=== PATIENT | male | born 1940 | race Caucasian/White ===

== ENCOUNTER 2018-07-09 05:21 | Emergency (ER) | payer MEDICARE, MEDICAID, SELFPAY ==
[2018-07-09] VITALS (8 sets, daily range): BP systolic 119–163; BP diastolic 64–115; PULSE 54–84; RESP 16–22; TEMP 36.8; O2SAT 93–100
--- NOTE | 2018-07-09 06:03 | DI.CT.S_ITS ---
PROCEDURE: CT ABDOMEN PELVIS W CON INDICATIONS: Left lower quadrant abdominal pain TECHNIQUE: After the administration of intravenous contrast, 5 mm thick sections acquired from the diaphragm to the symphysis. 5 mm coronal and sagittal reformats were acquired. For radiation dose reduction, the following was used: automated exposure control, adjustment of mA and/or kV according to patient size. COMPARISON: None. FINDINGS: Image quality: Excellent. ABDOMEN: Lung bases: Lung bases are clear. Heart size is normal. Solid organs: Liver is normal in size and enhancement. Gallbladder contains small gallstones, calcified, layering dependently. This are the size that easily good transit into the cystic duct or common bile duct.. Biliary system is non dilated. Pancreas enhances normally. Spleen is normal in size and enhancement. No adrenal nodules. Kidneys demonstrate asymmetric size, small on the right, and asymmetric mildly reduced right renal cortical enhancemen. There is generalized right urothelial mild thickening and a small calculus is free within the renal pelvis on the right. There is mild right-sided hydronephrosis. The left kidney appears normal Peritoneum and bowel: Bowel loops demonstrate normal wall thickness and caliber. No free fluid or air. Nodes and vessels: No retroperitoneal or mesenteric adenopathy by size criteria. The inferior vena cava is normal in size, but the aorta is aneurysmal at the middle third measuring about 4.2 cm in maximal axial dimension at the mid kidney level. Ectasia of the aorta and extends into the distal aorta and the iliac arteries are asymmetrically enlarged, measuring up to 2.5 cm on the right and 2.1 cm on the left. Miscellaneous: No ventral hernias. Gastrostomy tube in normal position. PELVIS: Genitourinary: Bladder wall thickness is difficult to accurately assess due to presence of a chronic appearing bladder drained from anterior percutaneous approach. What appears to be a 11 mm midline ovoid calculus is present likely within the gallbladder lumen, versus high-grade prostatic urethra. Several additional calcifications are seen more inferiorly within the prostate itself. Miscellaneous: No inguinal hernias or adenopathy. Multiple prostate radiation therapy seed implants are incidentally noted. Bones: No suspicious bony lesions. No vertebral body compression fractures. IMPRESSION: 1. Urothelial thickening and enhancement associated with a renal calculus and mild hydronephrosis on the right. The right renal cortex is thinned, right kidney is small when compared to the left kidney. Chronic urinary tract infection is suspected as the underlying cause. Given the urothelial thickening present involving the right kidney ongoing infection in that area may be present. 2. 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 No aneurysm hemorrhage is seen. 3. Prostatic radiation therapy seed implants. 4. Percutaneous bladder drainage, chronic in appearance, and there possibly is a bladder calculus or high prostatic urethral calculus. No comparison examinations. Urology consultation may be warranted and also referenced to old comparison films would be very helpful to determine whether a coincidental obstructive prostatic urethra calculus is present. 5. Percutaneous gastrostomy tube present, in normal position. Dictated by: Marlon Adams M.D. on 07/09/2018 at 8:37 Approved by: Marlon Adams M.D. on 07/09/2018 at 8:45
--- NOTE | 2018-07-09 07:25 | ED.MALEGU ---
HPI - Male Genitourinary <Lynsey Miguel DO - Last Filed: 07/09/18 21:11> General Chief complaint: Urogenital-Male Stated complaint: Cath clogged Time Seen by Provider: 07/09/18 07:25 Source: patient, family and EMS History of Present Illness HPI Narrative: Patient presents with Hart catheter problem. 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 It was not draining and then suddenly it leaked all around him. He is incontinent of urine at this time. He says the last 2 days he really has not felt great abdominal discomfort. No nausea or vomiting. He has not had any chest pain cough or shortness of breath. He says he just noticed that something was not quite right. Related Data Previous Rx's Medication Instructions Recorded cephalexin [Keflex] 500 mg PO BID #20 cap 07/09/18 Allergies Allergy/AdvReac Type Severity Reaction Status Date / Time codeine Allergy Verified 07/09/18 07:51 Review of Systems <Lynsey Miguel DO - Last Filed: 07/09/18 21:11> Review of Systems GENERAL: Generalized weakness HEENT: Denies sinus pain, ear pain, sore throat, difficulty swallowing, neck pain RESPIRATORY: Denies dyspnea, cough, wheezing, hemoptysis, sputum. CARDIOVASCULAR: Denies chest pain, palpitations, orthopnea, edema GASTROINTESTINAL: Peg tube for feeding Denies nausea, vomiting, abdominal pain, diarrhea, constipation, melena. : Chronic Hart catheter MUSCULOSKELETAL: Denies weakness, joint pain, or bony pain SKIN: No rash, no erythema, no pruritus NEUROLOGIC: Denies weakness, dizziness, headache, numbness, change in speech, confusion PSYCHIATRIC: No concerning psychosocial issues. 12 point review of systems is negative except for those stated above and HPI PFSH <Lynsey Miguel DO - Last Filed: 07/09/18 21:11> Medical History Cancer of parotid gland (Acute) Chronic indwelling Hart catheter (Acute) PEG tube malfunction (Acute) Surgical History H/O prostatectomy (Acute) Exam <Lynsey Miguel DO - Last Filed: 07/09/18 21:11> Initial Vital Signs Initial Vital Signs: Vital Signs Temperature 98.3 F 02/06/19 05:21 Pulse Rate 84 07/09/18 05:21 Respiratory Rate 16 07/09/18 05:21 Blood Pressure 128/71 07/09/18 05:21 Pulse Oximetry 93 07/09/18 05:21 GENERAL: Disheveled elderly male incontinent of urine poor hygiene, alert and oriented x3 HEENT: Head atraumatic,EOMI, pupils reactive, swelling of side of his face, neck is supple no meningeal signs CARDIOVASCULAR: Regular rate and rhythm without murmurs, rubs or gallops. RESPIRATORY: Breath sounds equal bilaterally, no wheezes rales or rhonchi. ABDOMEN: Soft. Normoactive bowel sounds all 4 quadrants. No guarding or rebound. The PEG tube site inserted. Vertical scar also noted. He is slightly tender in left lower quadrant without guarding or rebound : Hart catheter in place incontinence EXTREMITIES: Normal range of motion, no clubbing or edema. Neurovascularly intact NEUROLOGICAL: Alert and oriented x4.Normal gait and speech. Cranial nerves II through XII grossly intact. SKIN: Warm, dry, no laceration, no petechiae, no rashes or lesions. <Laura Bender, - Last Filed: 07/09/18 18:42> Initial Vital Signs Initial Vital Signs: Vital Signs Temperature 98.3 F 07/09/18 05:21 Pulse Rate 84 07/09/18 05:21 Respiratory Rate 16 07/09/18 05:21 Blood Pressure 128/71 07/09/18 05:21 Pulse Oximetry 93 07/09/18 05:21 Course <Lynsey Miguel DO - Last Filed: 07/09/18 21:11> Orders Ordered: Discontinued Medications Ceftriaxone Sodium/Dextrose (Rocephin) 1 gm in 50 mls @ 100 mls/hr IV NOW ONE Stop: 07/09/18 09:08 Last Infusion: 07/09/18 09:24 Dose: 0 mls/hr Admin: 07/09/18 08:55 Dose: 100 mls/hr Sodium Chloride (Normal Saline 0.9%) 1,000 mls @ 1,000 mls/hr IV BOLUS ONE Stop: 07/09/18 09:38 Last Admin: 07/09/18 07:00 Dose: Not Given Sodium Chloride (Normal Saline 0.9%) 1,000 mls @ 1,000 mls/hr IV BOLUS ONE Stop: 07/09/18 09:38 Last Infusion: 07/09/18 10:42 Dose: 0 mls/hr Admin: 07/09/18 08:47 Dose: 1,000 mls/hr Ketorolac Tromethamine (Toradol) 15 mg IV NOW ONE Stop: 07/09/18 08:15 Last Admin: 07/09/18 08:22 Dose: 15 mg Ondansetron HCl (Zofran) 4 mg IV NOW ONE Stop: 07/09/18 07:58 Last Admin: 07/09/18 08:03 Dose: 4 mg Vital Signs - 8 hr 07/09/18 11:00 07/09/18 12:03 Pulse Rate 55 L 54 L Respiratory Rate 20 22 Blood Pressure [Left Arm] 135/79 132/83 Pulse Oximetry 98 100 <Laura Bender, - Last Filed: 07/09/18 18:42> Orders Ordered: Discontinued Medications Ceftriaxone Sodium/Dextrose (Rocephin) 1 gm in 50 mls @ 100 mls/hr IV NOW ONE Stop: 07/09/18 09:08 Last Infusion: 07/09/18 09:24 Dose: 0 mls/hr Admin: 07/09/18 08:55 Dose: 100 mls/hr Sodium Chloride (Normal Saline 0.9%) 1,000 mls @ 1,000 mls/hr IV BOLUS ONE Stop: 07/09/18 09:38 Last Admin: 07/09/18 07:00 Dose: Not Given Sodium Chloride (Normal Saline 0.9%) 1,000 mls @ 1,000 mls/hr IV BOLUS ONE Stop: 07/09/18 09:38 Last Infusion: 07/09/18 10:42 Dose: 0 mls/hr Admin: 07/09/18 08:47 Dose: 1,000 mls/hr Ketorolac Tromethamine (Toradol) 15 mg IV NOW ONE Stop: 07/09/18 08:15 Last Admin: 07/09/18 08:22 Dose: 15 mg Ondansetron HCl (Zofran) 4 mg IV NOW ONE Stop: 07/09/18 07:58 Last Admin: 07/09/18 08:03 Dose: 4 mg Vital Signs - 8 hr 07/09/18 11:00 07/09/18 12:03 Pulse Rate 55 L 54 L Respiratory Rate 20 22 Blood Pressure [Left Arm] 135/79 132/83 Pulse Oximetry 98 100 MDM - Male Genitourinary <Lynsey Miguel DO - Last Filed: 07/09/18 21:11> Lab Data Result diagrams: 07/09/18 06:10 07/09/18 06:00 Lab Results 07/09/18 07/09/18 07/09/18 Range/Units 05:20 06:00 06:00 WBC (4.5-11.0) X10^3/uL RBC (4.5-5.9) X10^6/uL Hgb (13.5-17.5) g/dL Hct (41-53) % MCV (80-100) fL MCH (26-34) PG MCHC (30-36) % RDW (11.6-14.8) % Plt Count (150-400) X10^3/uL Neut % (Auto) (50-75) % Lymph % (Auto) (25-40) % [place] % (Auto) (3-14) % Eos % (Auto) (2-4) % Baso % (Auto) (0-2) % Neut # (Auto) (9575-1626) /uL Lymph # (Auto) (4613-2894) /uL [place] # (Auto) (0-900) /uL Eos # (Auto) (0-450) /uL Baso # (Auto) (0-100) /uL PT 18.5 H (10.1-12.7) SECONDS INR 1.6 H (0.9-1.3) APTT 33 (26.4-36.2) SECONDS Sodium 139 (137-145) mmol/L Potassium 3.9 (3.4-5.1) mmol/L Chloride 100 (98-107) mmol/L Carbon Dioxide 30 (22-32) mmol/L BUN 44 H (9-20) mg/dL Creatinine 0.90 (0.66-1.25) mg/dL Estimated GFR > 60.0 (>60) mL/min BUN/Creatinine Ratio 48.9 H (6-22) Glucose 132 H (80-110) mg/dL Calcium 9.3 (8.4-10.2) mg/dL Total Bilirubin 0.8 (0.2-1.3) mg/dL AST 28 (17-59) IU/L ALT 24 (21-72) IU/L Alkaline Phosphatase 66 (38-126) U/L Total Protein 7.4 (6.3-8.2) g/dL Albumin 4.0 (3.5-5.0) g/dL Globulin 3.4 (1.7-4.1) g/dL Albumin/Globulin Ratio 1.2 (1.0-2.8) Urine Color Yellow Urine Appearance Turbid Urine pH 8.5 H (4.5-8.0) Ur Specific [place] 1.010 (1.000-1.035) Urine Protein 3+ H (Negative) Urine Glucose (UA) Negative (Negative) g/dL Urine Ketones Trace H (NEGATIVE) Urine Occult Blood 3+ H (Negative) Urine Nitrate Positive (Negative) Urine Bilirubin Negative (NEGATIVE) Urine Urobilinogen 1.0 (0.2) E.U./dL Ur Leukocyte Esterase 3+ H (NEGATIVE) Urine RBC 10-30/hpf H (0-5/HPF) Urine WBC >100/hpf H (0-5/HPF) Urine Bacteria Many (>30) H (None) Ur Culture Indicated? Specimen cultured 07/09/18 Range/Units 06:10 WBC 9.1 (4.5-11.0) X10^3/uL RBC 4.76 (4.5-5.9) X10^6/uL Hgb 14.1 (13.5-17.5) g/dL Hct 42.3 (41-53) % MCV 88.9 (80-100) fL MCH 29.7 (26-34) PG MCHC 33.4 (30-36) % RDW 15.2 H (11.6-14.8) % Plt Count 266 (150-400) X10^3/uL Neut % (Auto) 83.6 H (50-75) % Lymph % (Auto) 8.3 L (25-40) % [place] % (Auto) 6.7 (3-14) % Eos % (Auto) 0.9 L (2-4) % Baso % (Auto) 0.5 (0-2) % Neut # (Auto) 7600 H (0057-1399) /uL Lymph # (Auto) 800 L (5234-9618) /uL [place] # (Auto) 600 (0-900) /uL Eos # (Auto) 100 (0-450) /uL Baso # (Auto) 0 (0-100) /uL PT (10.1-12.7) SECONDS INR (0.9-1.3) APTT (26.4-36.2) SECONDS Sodium (137-145) mmol/L Potassium (3.4-5.1) mmol/L Chloride (98-107) mmol/L Carbon Dioxide (22-32) mmol/L BUN (9-20) mg/dL Creatinine (0.66-1.25) mg/dL Estimated GFR (>60) mL/min BUN/Creatinine Ratio (6-22) Glucose (80-110) mg/dL Calcium (8.4-10.2) mg/dL Total Bilirubin (0.2-1.3) mg/dL AST (17-59) IU/L ALT (21-72) IU/L Alkaline Phosphatase (38-126) U/L Total Protein (6.3-8.2) g/dL Albumin (3.5-5.0) g/dL Globulin (1.7-4.1) g/dL Albumin/Globulin Ratio (1.0-2.8) Urine Color Urine Appearance Urine pH (4.5-8.0) Ur Specific [place] (1.000-1.035) Urine Protein (Negative) Urine Glucose (UA) (Negative) g/dL Urine Ketones (NEGATIVE) Urine Occult Blood (Negative) Urine Nitrate (Negative) Urine Bilirubin (NEGATIVE) Urine Urobilinogen (0.2) E.U./dL Ur Leukocyte Esterase (NEGATIVE) Urine RBC (0-5/HPF) Urine WBC (0-5/HPF) Urine Bacteria (None) Ur Culture Indicated? MDM Narrative Medical decision making narrative: The patient has been cleaned up. There was a [employer] down time transitioning of care over to Dr. Bender. Blood work reviewed does appear normal. Waiting CT abdomen and pelvis. Discuss with family about disposition <Laura Bender, - Last Filed: 07/09/18 18:42> Lab Data Lab Results 02/06/19 02/06/19 02/06/19 Range/Units 05:20 06:00 06:00 WBC (4.5-11.0) X10^3/uL RBC (4.5-5.9) X10^6/uL Hgb (13.5-17.5) g/dL Hct (41-53) % MCV (80-100) fL MCH (26-34) PG MCHC (30-36) % RDW (11.6-14.8) % Plt Count (150-400) X10^3/uL Neut % (Auto) (50-75) % Lymph % (Auto) (25-40) % [place] % (Auto) (3-14) % Eos % (Auto) (2-4) % Baso % (Auto) (0-2) % Neut # (Auto) (9675-1937) /uL Lymph # (Auto) (3740-6063) /uL [place] # (Auto) (0-900) /uL Eos # (Auto) (0-450) /uL Baso # (Auto) (0-100) /uL PT 18.5 H (10.1-12.7) SECONDS INR 1.6 H (0.9-1.3) APTT 33 (26.4-36.2) SECONDS Sodium 139 (137-145) mmol/L Potassium 3.9 (3.4-5.1) mmol/L Chloride 100 (98-107) mmol/L Carbon Dioxide 30 (22-32) mmol/L BUN 44 H (9-20) mg/dL Creatinine 0.90 (0.66-1.25) mg/dL Estimated GFR > 60.0 (>60) mL/min BUN/Creatinine Ratio 48.9 H (6-22) Glucose 132 H (80-110) mg/dL Calcium 9.3 (8.4-10.2) mg/dL Total Bilirubin 0.8 (0.2-1.3) mg/dL AST 28 (17-59) IU/L ALT 24 (21-72) IU/L Alkaline Phosphatase 66 (38-126) U/L Total Protein 7.4 (6.3-8.2) g/dL Albumin 4.0 (3.5-5.0) g/dL Globulin 3.4 (1.7-4.1) g/dL Albumin/Globulin Ratio 1.2 (1.0-2.8) Urine Color Yellow Urine Appearance Turbid Urine pH 8.5 H (4.5-8.0) Ur Specific [place] 1.010 (1.000-1.035) Urine Protein 3+ H (Negative) Urine Glucose (UA) Negative (Negative) g/dL Urine Ketones Trace H (NEGATIVE) Urine Occult Blood 3+ H (Negative) Urine Nitrate Positive (Negative) Urine Bilirubin Negative (NEGATIVE) Urine Urobilinogen 1.0 (0.2) E.U./dL Ur Leukocyte Esterase 3+ H (NEGATIVE) Urine RBC 10-30/hpf H (0-5/HPF) Urine WBC >100/hpf H (0-5/HPF) Urine Bacteria Many (>30) H (None) Ur Culture Indicated? Specimen cultured 07/09/18 Range/Units 06:10 WBC 9.1 (4.5-11.0) X10^3/uL RBC 4.76 (4.5-5.9) X10^6/uL Hgb 14.1 (13.5-17.5) g/dL Hct 42.3 (41-53) % MCV 88.9 (80-100) fL MCH 29.7 (26-34) PG MCHC 33.4 (30-36) % RDW 15.2 H (11.6-14.8) % Plt Count 266 (150-400) X10^3/uL Neut % (Auto) 83.6 H (50-75) % Lymph % (Auto) 8.3 L (25-40) % [place] % (Auto) 6.7 (3-14) % Eos % (Auto) 0.9 L (2-4) % Baso % (Auto) 0.5 (0-2) % Neut # (Auto) 7600 H (1188-3878) /uL Lymph # (Auto) 800 L (7132-9115) /uL [place] # (Auto) 600 (0-900) /uL Eos # (Auto) 100 (0-450) /uL Baso # (Auto) 0 (0-100) /uL PT (10.1-12.7) SECONDS INR (0.9-1.3) APTT (26.4-36.2) SECONDS Sodium (137-145) mmol/L Potassium (3.4-5.1) mmol/L Chloride (98-107) mmol/L Carbon Dioxide (22-32) mmol/L BUN (9-20) mg/dL Creatinine (0.66-1.25) mg/dL Estimated GFR (>60) mL/min BUN/Creatinine Ratio (6-22) Glucose (80-110) mg/dL Calcium (8.4-10.2) mg/dL Total Bilirubin (0.2-1.3) mg/dL AST (17-59) IU/L ALT (21-72) IU/L Alkaline Phosphatase (38-126) U/L Total Protein (6.3-8.2) g/dL Albumin (3.5-5.0) g/dL Globulin (1.7-4.1) g/dL Albumin/Globulin Ratio (1.0-2.8) Urine Color Urine Appearance Urine pH (4.5-8.0) Ur Specific [place] (1.000-1.035) Urine Protein (Negative) Urine Glucose (UA) (Negative) g/dL Urine Ketones (NEGATIVE) Urine Occult Blood (Negative) Urine Nitrate (Negative) Urine Bilirubin (NEGATIVE) Urine Urobilinogen (0.2) E.U./dL Ur Leukocyte Esterase (NEGATIVE) Urine RBC (0-5/HPF) Urine WBC (0-5/HPF) Urine Bacteria (None) Ur Culture Indicated? Imaging Data CT scan - abdomen: Radiologist's impression: [place] [id number] CT Scan Report Signed Patient: Marcos ReynaR#: [id number] : 1940cct:[id number] Age/Sex: 77 / MDate of Service: 07/09/18 Loc: ED Accession Number: [id number] Procedure: CT abdomen pelvis w con Ordering Provider: Lynsey Miguel D.O. PROCEDURE: CT ABDOMEN PELVIS W CON INDICATIONS: Left lower quadrant abdominal pain TECHNIQUE: After the administration of intravenous contrast, 5 mm thick sections acquired from the diaphragm to the symphysis. 5 mm coronal and sagittal reformats were acquired. For radiation dose reduction, the following was used: automated exposure control, adjustment of mA and/or kV according to patient size. COMPARISON: None. FINDINGS: Image quality: Excellent. ABDOMEN: Lung bases: Lung bases are clear. Heart size is normal. Solid organs: Liver is normal in size and enhancement. Gallbladder contains small gallstones, calcified, layering dependently. This are the size that easily good transit into the cystic duct or common bile duct.. Biliary system is non dilated. Pancreas enhances normally. Spleen is normal in size and enhancement. No adrenal nodules. Kidneys demonstrate asymmetric size, small on the right, and asymmetric mildly reduced right renal cortical enhancemen. There is generalized right urothelial mild thickening and a small calculus is free within the renal pelvis on the right. There is mild right-sided hydronephrosis. The left kidney appears normal Peritoneum and bowel: Bowel loops demonstrate normal wall thickness and caliber. No free fluid or air. Nodes and vessels: No retroperitoneal or mesenteric adenopathy by size criteria. The inferior vena cava is normal in size, but the aorta is aneurysmal at the middle third measuring about 4.2 cm in maximal axial dimension at the mid kidney level. Ectasia of the aorta and extends into the distal aorta and the iliac arteries are asymmetrically enlarged, measuring up to 2.5 cm on the right and 2.1 cm on the left. Miscellaneous: No ventral hernias. Gastrostomy tube in normal position. PELVIS: Genitourinary: Bladder wall thickness is difficult to accurately assess due to presence of a chronic appearing bladder drained from anterior percutaneous approach. What appears to be a 11 mm midline ovoid calculus is present likely within the gallbladder lumen, versus high-grade prostatic urethra. Several additional calcifications are seen more inferiorly within the prostate itself. Miscellaneous: No inguinal hernias or adenopathy. Multiple prostate radiation therapy seed implants are incidentally noted. Bones: No suspicious bony lesions. No vertebral body compression fractures. IMPRESSION: 1. Urothelial thickening and enhancement associated with a renal calculus and mild hydronephrosis on the right. The right renal cortex is thinned, right kidney is small when compared to the left kidney. Chronic urinary tract infection is suspected as the underlying cause. Given the urothelial thickening present involving the right kidney ongoing infection in that area may be present. 2. 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 No aneurysm hemorrhage is seen. 3. Prostatic radiation therapy seed implants. 4. Percutaneous bladder drainage, chronic in appearance, and there possibly is a bladder calculus or high prostatic urethral calculus. No comparison examinations. Urology consultation may be warranted and also referenced to old comparison films would be very helpful to determine whether a coincidental obstructive prostatic urethra calculus is present. 5. Percutaneous gastrostomy tube present, in normal position. Dictated by: Marlon Adams M.D. on 07/09/2018 at 8:37 Approved by: Marlon Adams M.D. on 07/09/2018 at 8:45 MDM Narrative Medical decision making narrative: Spoke with Dr. Cesar from [facility] vascular patient's CT today shows triple A with involvement of the iliac, patient's family was all clear if he had been evaluated for this they initially believed that he had and that they were told that they would not do anything but then they thought this might actually be in reference to a hernia that the patient has. Images were pushed to [facility] they were reviewed by vascular surgery who did call me back states that they have not changed and are stable. She reviewed patient's CT scan from today. They state patient can continue to follow with the internal medicine group until it is above 5 cm or if there is concern for imminent rupture. Patient's lab work does not show any major changes, urine does show signs of infection which is on surprising based on his catheter and physical status upon arrival to the ER. Patient was started on antibiotics Rocephin here in the department and Keflex orally. Urine culture is pending there were none prior for comparison and discussed with the son and patient that they may need to be changed if there is resistance which is likely. Discharge Plan Departure Patient Disposition: Home Clinical Impression: Catheter-associated urinary tract infection, Abdominal aortic aneurysm Discharge Date/Time: 07/09/18 13:12 Interventions: ED Discharge Assessment Last Done: 07/09/18 13:12 Instructions: Aortic Aneurysm, DI for Urinary Tract Infection (UTI) Activity Restrictions/Additional Instructions: Follow-up with your appointments with [facility] for recheck. They should also continue to follow your aneurysm to monitor. Take antibiotics until they are completely gone. Your urine does show signs of infection, urine culture was sent and if this shows resistant to the antibiotics your placed on today you will receive a phone call to update her antibiotics. Return to the emergency department for fevers greater than 100.4, new weakness, persistent vomiting, rapidly increasing abdominal pain, new flank pain, difficulty with urination or if you're catheter has become blocked. Prescriptions: New cephalexin [Keflex] 500 mg capsule 500 mg PO BID Qty: 20 RF: 0 Referrals: Celina Restrepo MD [Primary Care Provider] -
--- NOTE | 2018-07-09 07:28 | ED_ITS ---
HPI - Male Genitourinary <Lynsey Miguel DO - Last Filed: 07/09/18 21:11> General Chief complaint: Urogenital-Male Stated complaint: Cath clogged Time Seen by Provider: 07/09/18 07:25 Source: patient, family and EMS History of Present Illness HPI Narrative: Patient presents with Hart catheter problem. 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 It was not draining and then suddenly it leaked all around him. He is incontinent of urine at this time. He says the last 2 days he really has not felt great abdominal discomfort. No nausea or vomiting. He has not had any chest pain cough or shortness of breath. He says he just noticed that something was not quite right. Related Data Previous Rx's Medication Instructions Recorded cephalexin [Keflex] 500 mg PO BID #20 cap 07/09/18 Allergies Allergy/AdvReac Type Severity Reaction Status Date / Time codeine Allergy Verified 07/09/18 07:51 Review of Systems <Lynsey Miguel DO - Last Filed: 07/09/18 21:11> Review of Systems GENERAL: Generalized weakness HEENT: Denies sinus pain, ear pain, sore throat, difficulty swallowing, neck pain RESPIRATORY: Denies dyspnea, cough, wheezing, hemoptysis, sputum. CARDIOVASCULAR: Denies chest pain, palpitations, orthopnea, edema GASTROINTESTINAL: Peg tube for feeding Denies nausea, vomiting, abdominal pain, diarrhea, constipation, melena. : Chronic Hart catheter MUSCULOSKELETAL: Denies weakness, joint pain, or bony pain SKIN: No rash, no erythema, no pruritus NEUROLOGIC: Denies weakness, dizziness, headache, numbness, change in speech, confusion PSYCHIATRIC: No concerning psychosocial issues. 12 point review of systems is negative except for those stated above and HPI PFSH <Lynsey Miguel DO - Last Filed: 07/09/18 21:11> Medical History Cancer of parotid gland (Acute) Chronic indwelling Hart catheter (Acute) PEG tube malfunction (Acute) Surgical History H/O prostatectomy (Acute) Exam <Lynsey Miguel DO - Last Filed: 07/09/18 21:11> Initial Vital Signs Initial Vital Signs: Vital Signs Temperature 98.3 F 02/06/19 05:21 Pulse Rate 84 07/09/18 05:21 Respiratory Rate 16 07/09/18 05:21 Blood Pressure 128/71 07/09/18 05:21 Pulse Oximetry 93 07/09/18 05:21 GENERAL: Disheveled elderly male incontinent of urine poor hygiene, alert and oriented x3 HEENT: Head atraumatic,EOMI, pupils reactive, swelling of side of his face, neck is supple no meningeal signs CARDIOVASCULAR: Regular rate and rhythm without murmurs, rubs or gallops. RESPIRATORY: Breath sounds equal bilaterally, no wheezes rales or rhonchi. ABDOMEN: Soft. Normoactive bowel sounds all 4 quadrants. No guarding or rebound. The PEG tube site inserted. Vertical scar also noted. He is slightly tender in left lower quadrant without guarding or rebound : Hart catheter in place incontinence EXTREMITIES: Normal range of motion, no clubbing or edema. Neurovascularly intact NEUROLOGICAL: Alert and oriented x4.Normal gait and speech. Cranial nerves II through XII grossly intact. SKIN: Warm, dry, no laceration, no petechiae, no rashes or lesions. <Laura Bender, - Last Filed: 07/09/18 18:42> Initial Vital Signs Initial Vital Signs: Vital Signs Temperature 98.3 F 07/09/18 05:21 Pulse Rate 84 07/09/18 05:21 Respiratory Rate 16 07/09/18 05:21 Blood Pressure 128/71 07/09/18 05:21 Pulse Oximetry 93 07/09/18 05:21 Course <Lynsey Miguel DO - Last Filed: 07/09/18 21:11> Orders Ordered: Discontinued Medications Ceftriaxone Sodium/Dextrose (Rocephin) 1 gm in 50 mls @ 100 mls/hr IV NOW ONE Stop: 07/09/18 09:08 Last Infusion: 07/09/18 09:24 Dose: 0 mls/hr Admin: 07/09/18 08:55 Dose: 100 mls/hr Sodium Chloride (Normal Saline 0.9%) 1,000 mls @ 1,000 mls/hr IV BOLUS ONE Stop: 07/09/18 09:38 Last Admin: 07/09/18 07:00 Dose: Not Given Sodium Chloride (Normal Saline 0.9%) 1,000 mls @ 1,000 mls/hr IV BOLUS ONE Stop: 07/09/18 09:38 Last Infusion: 07/09/18 10:42 Dose: 0 mls/hr Admin: 07/09/18 08:47 Dose: 1,000 mls/hr Ketorolac Tromethamine (Toradol) 15 mg IV NOW ONE Stop: 07/09/18 08:15 Last Admin: 07/09/18 08:22 Dose: 15 mg Ondansetron HCl (Zofran) 4 mg IV NOW ONE Stop: 07/09/18 07:58 Last Admin: 07/09/18 08:03 Dose: 4 mg Vital Signs - 8 hr 07/09/18 11:00 07/09/18 12:03 Pulse Rate 55 L 54 L Respiratory Rate 20 22 Blood Pressure [Left Arm] 135/79 132/83 Pulse Oximetry 98 100 <Laura Bender, - Last Filed: 07/09/18 18:42> Orders Ordered: Discontinued Medications Ceftriaxone Sodium/Dextrose (Rocephin) 1 gm in 50 mls @ 100 mls/hr IV NOW ONE Stop: 07/09/18 09:08 Last Infusion: 07/09/18 09:24 Dose: 0 mls/hr Admin: 07/09/18 08:55 Dose: 100 mls/hr Sodium Chloride (Normal Saline 0.9%) 1,000 mls @ 1,000 mls/hr IV BOLUS ONE Stop: 07/09/18 09:38 Last Admin: 07/09/18 07:00 Dose: Not Given Sodium Chloride (Normal Saline 0.9%) 1,000 mls @ 1,000 mls/hr IV BOLUS ONE Stop: 07/09/18 09:38 Last Infusion: 07/09/18 10:42 Dose: 0 mls/hr Admin: 07/09/18 08:47 Dose: 1,000 mls/hr Ketorolac Tromethamine (Toradol) 15 mg IV NOW ONE Stop: 07/09/18 08:15 Last Admin: 07/09/18 08:22 Dose: 15 mg Ondansetron HCl (Zofran) 4 mg IV NOW ONE Stop: 07/09/18 07:58 Last Admin: 07/09/18 08:03 Dose: 4 mg Vital Signs - 8 hr 07/09/18 11:00 07/09/18 12:03 Pulse Rate 55 L 54 L Respiratory Rate 20 22 Blood Pressure [Left Arm] 135/79 132/83 Pulse Oximetry 98 100 MDM - Male Genitourinary <Lynsey Miguel DO - Last Filed: 07/09/18 21:11> Lab Data Result diagrams: 07/09/18 06:10 07/09/18 06:00 Lab Results 07/09/18 07/09/18 07/09/18 Range/Units 05:20 06:00 06:00 WBC (4.5-11.0) X10^3/uL RBC (4.5-5.9) X10^6/uL Hgb (13.5-17.5) g/dL Hct (41-53) % MCV (80-100) fL MCH (26-34) PG MCHC (30-36) % RDW (11.6-14.8) % Plt Count (150-400) X10^3/uL Neut % (Auto) (50-75) % Lymph % (Auto) (25-40) % Mcpherson % (Auto) (3-14) % Eos % (Auto) (2-4) % Baso % (Auto) (0-2) % Neut # (Auto) (9965-7854) /uL Lymph # (Auto) (2673-5222) /uL Mcpherson # (Auto) (0-900) /uL Eos # (Auto) (0-450) /uL Baso # (Auto) (0-100) /uL PT 18.5 H (10.1-12.7) SECONDS INR 1.6 H (0.9-1.3) APTT 33 (26.4-36.2) SECONDS Sodium 139 (137-145) mmol/L Potassium 3.9 (3.4-5.1) mmol/L Chloride 100 (98-107) mmol/L Carbon Dioxide 30 (22-32) mmol/L BUN 44 H (9-20) mg/dL Creatinine 0.90 (0.66-1.25) mg/dL Estimated GFR > 60.0 (>60) mL/min BUN/Creatinine Ratio 48.9 H (6-22) Glucose 132 H (80-110) mg/dL Calcium 9.3 (8.4-10.2) mg/dL Total Bilirubin 0.8 (0.2-1.3) mg/dL AST 28 (17-59) IU/L ALT 24 (21-72) IU/L Alkaline Phosphatase 66 (38-126) U/L Total Protein 7.4 (6.3-8.2) g/dL Albumin 4.0 (3.5-5.0) g/dL Globulin 3.4 (1.7-4.1) g/dL Albumin/Globulin Ratio 1.2 (1.0-2.8) Urine Color Yellow Urine Appearance Turbid Urine pH 8.5 H (4.5-8.0) Ur Specific [place] 1.010 (1.000-1.035) Urine Protein 3+ H (Negative) Urine Glucose (UA) Negative (Negative) g/dL Urine Ketones Trace H (NEGATIVE) Urine Occult Blood 3+ H (Negative) Urine Nitrate Positive (Negative) Urine Bilirubin Negative (NEGATIVE) Urine Urobilinogen 1.0 (0.2) E.U./dL Ur Leukocyte Esterase 3+ H (NEGATIVE) Urine RBC 10-30/hpf H (0-5/HPF) Urine WBC >100/hpf H (0-5/HPF) Urine Bacteria Many (>30) H (None) Ur Culture Indicated? Specimen cultured 07/09/18 Range/Units 06:10 WBC 9.1 (4.5-11.0) X10^3/uL RBC 4.76 (4.5-5.9) X10^6/uL Hgb 14.1 (13.5-17.5) g/dL Hct 42.3 (41-53) % MCV 88.9 (80-100) fL MCH 29.7 (26-34) PG MCHC 33.4 (30-36) % RDW 15.2 H (11.6-14.8) % Plt Count 266 (150-400) X10^3/uL Neut % (Auto) 83.6 H (50-75) % Lymph % (Auto) 8.3 L (25-40) % Mcpherson % (Auto) 6.7 (3-14) % Eos % (Auto) 0.9 L (2-4) % Baso % (Auto) 0.5 (0-2) % Neut # (Auto) 7600 H (5075-8067) /uL Lymph # (Auto) 800 L (3095-5471) /uL Mcpherson # (Auto) 600 (0-900) /uL Eos # (Auto) 100 (0-450) /uL Baso # (Auto) 0 (0-100) /uL PT (10.1-12.7) SECONDS INR (0.9-1.3) APTT (26.4-36.2) SECONDS Sodium (137-145) mmol/L Potassium (3.4-5.1) mmol/L Chloride (98-107) mmol/L Carbon Dioxide (22-32) mmol/L BUN (9-20) mg/dL Creatinine (0.66-1.25) mg/dL Estimated GFR (>60) mL/min BUN/Creatinine Ratio (6-22) Glucose (80-110) mg/dL Calcium (8.4-10.2) mg/dL Total Bilirubin (0.2-1.3) mg/dL AST (17-59) IU/L ALT (21-72) IU/L Alkaline Phosphatase (38-126) U/L Total Protein (6.3-8.2) g/dL Albumin (3.5-5.0) g/dL Globulin (1.7-4.1) g/dL Albumin/Globulin Ratio (1.0-2.8) Urine Color Urine Appearance Urine pH (4.5-8.0) Ur Specific [place] (1.000-1.035) Urine Protein (Negative) Urine Glucose (UA) (Negative) g/dL Urine Ketones (NEGATIVE) Urine Occult Blood (Negative) Urine Nitrate (Negative) Urine Bilirubin (NEGATIVE) Urine Urobilinogen (0.2) E.U./dL Ur Leukocyte Esterase (NEGATIVE) Urine RBC (0-5/HPF) Urine WBC (0-5/HPF) Urine Bacteria (None) Ur Culture Indicated? MDM Narrative Medical decision making narrative: The patient has been cleaned up. There was a [employer] down time transitioning of care over to Dr. Bender. Blood work reviewed does appear normal. Waiting CT abdomen and pelvis. Discuss with family about disposition <Laura Bender, - Last Filed: 07/09/18 18:42> Lab Data Lab Results 02/06/19 02/06/19 02/06/19 Range/Units 05:20 06:00 06:00 WBC (4.5-11.0) X10^3/uL RBC (4.5-5.9) X10^6/uL Hgb (13.5-17.5) g/dL Hct (41-53) % MCV (80-100) fL MCH (26-34) PG MCHC (30-36) % RDW (11.6-14.8) % Plt Count (150-400) X10^3/uL Neut % (Auto) (50-75) % Lymph % (Auto) (25-40) % Mcpherson % (Auto) (3-14) % Eos % (Auto) (2-4) % Baso % (Auto) (0-2) % Neut # (Auto) (5281-6313) /uL Lymph # (Auto) (5634-0222) /uL Mcpherson # (Auto) (0-900) /uL Eos # (Auto) (0-450) /uL Baso # (Auto) (0-100) /uL PT 18.5 H (10.1-12.7) SECONDS INR 1.6 H (0.9-1.3) APTT 33 (26.4-36.2) SECONDS Sodium 139 (137-145) mmol/L Potassium 3.9 (3.4-5.1) mmol/L Chloride 100 (98-107) mmol/L Carbon Dioxide 30 (22-32) mmol/L BUN 44 H (9-20) mg/dL Creatinine 0.90 (0.66-1.25) mg/dL Estimated GFR > 60.0 (>60) mL/min BUN/Creatinine Ratio 48.9 H (6-22) Glucose 132 H (80-110) mg/dL Calcium 9.3 (8.4-10.2) mg/dL Total Bilirubin 0.8 (0.2-1.3) mg/dL AST 28 (17-59) IU/L ALT 24 (21-72) IU/L Alkaline Phosphatase 66 (38-126) U/L Total Protein 7.4 (6.3-8.2) g/dL Albumin 4.0 (3.5-5.0) g/dL Globulin 3.4 (1.7-4.1) g/dL Albumin/Globulin Ratio 1.2 (1.0-2.8) Urine Color Yellow Urine Appearance Turbid Urine pH 8.5 H (4.5-8.0) Ur Specific [place] 1.010 (1.000-1.035) Urine Protein 3+ H (Negative) Urine Glucose (UA) Negative (Negative) g/dL Urine Ketones Trace H (NEGATIVE) Urine Occult Blood 3+ H (Negative) Urine Nitrate Positive (Negative) Urine Bilirubin Negative (NEGATIVE) Urine Urobilinogen 1.0 (0.2) E.U./dL Ur Leukocyte Esterase 3+ H (NEGATIVE) Urine RBC 10-30/hpf H (0-5/HPF) Urine WBC >100/hpf H (0-5/HPF) Urine Bacteria Many (>30) H (None) Ur Culture Indicated? Specimen cultured 07/09/18 Range/Units 06:10 WBC 9.1 (4.5-11.0) X10^3/uL RBC 4.76 (4.5-5.9) X10^6/uL Hgb 14.1 (13.5-17.5) g/dL Hct 42.3 (41-53) % MCV 88.9 (80-100) fL MCH 29.7 (26-34) PG MCHC 33.4 (30-36) % RDW 15.2 H (11.6-14.8) % Plt Count 266 (150-400) X10^3/uL Neut % (Auto) 83.6 H (50-75) % Lymph % (Auto) 8.3 L (25-40) % Mcpherson % (Auto) 6.7 (3-14) % Eos % (Auto) 0.9 L (2-4) % Baso % (Auto) 0.5 (0-2) % Neut # (Auto) 7600 H (6754-9211) /uL Lymph # (Auto) 800 L (9675-0335) /uL Mcpherson # (Auto) 600 (0-900) /uL Eos # (Auto) 100 (0-450) /uL Baso # (Auto) 0 (0-100) /uL PT (10.1-12.7) SECONDS INR (0.9-1.3) APTT (26.4-36.2) SECONDS Sodium (137-145) mmol/L Potassium (3.4-5.1) mmol/L Chloride (98-107) mmol/L Carbon Dioxide (22-32) mmol/L BUN (9-20) mg/dL Creatinine (0.66-1.25) mg/dL Estimated GFR (>60) mL/min BUN/Creatinine Ratio (6-22) Glucose (80-110) mg/dL Calcium (8.4-10.2) mg/dL Total Bilirubin (0.2-1.3) mg/dL AST (17-59) IU/L ALT (21-72) IU/L Alkaline Phosphatase (38-126) U/L Total Protein (6.3-8.2) g/dL Albumin (3.5-5.0) g/dL Globulin (1.7-4.1) g/dL Albumin/Globulin Ratio (1.0-2.8) Urine Color Urine Appearance Urine pH (4.5-8.0) Ur Specific [place] (1.000-1.035) Urine Protein (Negative) Urine Glucose (UA) (Negative) g/dL Urine Ketones (NEGATIVE) Urine Occult Blood (Negative) Urine Nitrate (Negative) Urine Bilirubin (NEGATIVE) Urine Urobilinogen (0.2) E.U./dL Ur Leukocyte Esterase (NEGATIVE) Urine RBC (0-5/HPF) Urine WBC (0-5/HPF) Urine Bacteria (None) Ur Culture Indicated? Imaging Data CT scan - abdomen: Radiologist's impression: [place] [id number] CT Scan Report Signed Patient: Marcos ReynaR#: [id number] : 1940cct:[id number] Age/Sex: 77 / MDate of Service: 07/09/18 Loc: ED Accession Number: [id number] Procedure: CT abdomen pelvis w con Ordering Provider: Lynsey Miguel D.O. PROCEDURE: CT ABDOMEN PELVIS W CON INDICATIONS: Left lower quadrant abdominal pain TECHNIQUE: After the administration of intravenous contrast, 5 mm thick sections acquired from the diaphragm to the symphysis. 5 mm coronal and sagittal reformats were acquired. For radiation dose reduction, the following was used: automated exposure control, adjustment of mA and/or kV according to patient size. COMPARISON: None. FINDINGS: Image quality: Excellent. ABDOMEN: Lung bases: Lung bases are clear. Heart size is normal. Solid organs: Liver is normal in size and enhancement. Gallbladder contains small gallstones, calcified, layering dependently. This are the size that easily good transit into the cystic duct or common bile duct.. Biliary system is non dilated. Pancreas enhances normally. Spleen is normal in size and enhancement. No adrenal nodules. Kidneys demonstrate asymmetric size, small on the right, and asymmetric mildly reduced right renal cortical enhancemen. There is generalized right urothelial mild thickening and a small calculus is free within the renal pelvis on the right. There is mild right-sided hydronephrosis. The left kidney appears normal Peritoneum and bowel: Bowel loops demonstrate normal wall thickness and caliber. No free fluid or air. Nodes and vessels: No retroperitoneal or mesenteric adenopathy by size criteria. The inferior vena cava is normal in size, but the aorta is aneurysmal at the middle third measuring about 4.2 cm in maximal axial dimension at the mid kidney level. Ectasia of the aorta and extends into the distal aorta and the iliac arteries are asymmetrically enlarged, measuring up to 2.5 cm on the right and 2.1 cm on the left. Miscellaneous: No ventral hernias. Gastrostomy tube in normal position. PELVIS: Genitourinary: Bladder wall thickness is difficult to accurately assess due to presence of a chronic appearing bladder drained from anterior percutaneous approach. What appears to be a 11 mm midline ovoid calculus is present likely within the gallbladder lumen, versus high-grade prostatic urethra. Several additional calcifications are seen more inferiorly within the prostate itself. Miscellaneous: No inguinal hernias or adenopathy. Multiple prostate radiation therapy seed implants are incidentally noted. Bones: No suspicious bony lesions. No vertebral body compression fractures. IMPRESSION: 1. Urothelial thickening and enhancement associated with a renal calculus and mild hydronephrosis on the right. The right renal cortex is thinned, right kidney is small when compared to the left kidney. Chronic urinary tract infection is suspected as the underlying cause. Given the urothelial thickening present involving the right kidney ongoing infection in that area may be present. 2. 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 No aneurysm hemorrhage is seen. 3. Prostatic radiation therapy seed implants. 4. Percutaneous bladder drainage, chronic in appearance, and there possibly is a bladder calculus or high prostatic urethral calculus. No comparison examinations. Urology consultation may be warranted and also referenced to old comparison films would be very helpful to determine whether a coincidental obstructive prostatic urethra calculus is present. 5. Percutaneous gastrostomy tube present, in normal position. Dictated by: Marlon Adams M.D. on 07/09/2018 at 8:37 Approved by: Marlon Adams M.D. on 07/09/2018 at 8:45 MDM Narrative Medical decision making narrative: Spoke with Dr. Cesar from [facility] vascular patient's CT today shows triple A with involvement of the iliac, patient's family was all clear if he had been evaluated for this they initially believed that he had and that they were told that they would not do anything but then they thought this might actually be in reference to a hernia that the patient has. Images were pushed to [facility] they were reviewed by vascular surgery who did call me back states that they have not changed and are stable. She reviewed patient's CT scan from today. They state patient can continue to follow with the internal medicine group until it is above 5 cm or if there is concern for imminent rupture. Patient's lab work does not show any major changes, urine does show signs of infection which is on surprising based on his catheter and physical status upon arrival to the ER. Patient was started on antibiotics Rocephin here in the department and Keflex orally. Urine culture is pending there were none prior for comparison and discussed with the son and patient that they may need to be changed if there is resistance which is likely. Discharge Plan Departure Patient Disposition: Home Clinical Impression: Catheter-associated urinary tract infection, Abdominal aortic aneurysm Discharge Date/Time: 07/09/18 13:12 Interventions: ED Discharge Assessment Last Done: 07/09/18 13:12 Instructions: Aortic Aneurysm, DI for Urinary Tract Infection (UTI) Activity Restrictions/Additional Instructions: Follow-up with your appointments with [facility] for recheck. They should also continue to follow your aneurysm to monitor. Take antibiotics until they are completely gone. Your urine does show signs of infection, urine culture was sent and if this shows resistant to the antibiotics your placed on today you will receive a phone call to update her antibiotics. Return to the emergency department for fevers greater than 100.4, new weakness, persistent vomiting, rapidly increasing abdominal pain, new flank pain, difficulty with urination or if you're catheter has become blocked. Prescriptions: New cephalexin [Keflex] 500 mg capsule 500 mg PO BID Qty: 20 RF: 0 Referrals: Celina Restrepo MD [Primary Care Provider] -
[2018-07-09 07:40] LABS: Appearance Urine UA TURBID; Bilirubin Urine UA NEGATIVE (NEGATIVE); Color Urine UA YELLOW; Glucose Urine UA NEGATIVE (Negative); Ketones Urine UA TRACE (NEGATIVE); Leukocyte Esterase Urine UA 3+ (NEGATIVE); Nitrite Urine UA POSITIVE (Negative); Occult Blood Urine UA 3+ (Negative); Protein Urine UA 3+ (Negative); pH Urine UA 8.5 (4.5-8.0)
--- NOTE | 2018-07-09 07:59 | PC.NURSE ---
Pt has suprapubic cath. Reports had missed appointment to replace cath and it had been about a month and half in place. Pt reports increased pain in bladder to to feeling of needing to urinate. Catheter bag empty upon arrive. Pt's pants and shirt were wet from urine. Pt had urinated around cath.
[2018-07-09] MEDS: ONDANSETRON 4 MG/2 ML INJ IV (08:03)
--- NOTE | 2018-07-09 08:03 | PC.NURSE ---
Pt with brief in place. Large bowel movement in brief. Brief was stuck to patient in places. When asked, Pt stated had been in same brief for 3 days and was to weak to change brief. Cleaned patient up requiring total bed change. Pt's skin excoriated from brief both on gluts and testicles. Barrier cream applied.
[2018-07-09 08:05] LABS: RBC Urine 10-30/HPF (0-5/HPF)
[2018-07-09 08:06] LABS: Bacteria Urine Many (>30); Culture Indicated Urine Specimen Cultured; WBC Urine >100/HPF (0-5/HPF)
--- NOTE | 2018-07-09 08:07 | PC.NURSE ---
Once original suprapubic cath was removed, pt started urinating out of opening in lower abdomen. Pt drained a large amount of orange urine before able to replace catheter. Once pt finished draining from opening, catheter was replaced.
[2018-07-09] MEDS: KETOROLAC 60 MG/2 ML VIAL 15 MG IV (08:22)
[2018-07-09] MEDS: SODIUM CHLORIDE 0.9% 1,000 ML 1000 ML IV (08:47)
[2018-07-09] MEDS: CEFTRIAXONE 1 GM/50 ML FROZ.PIGGY IV (08:55)
[2018-07-09 12:36] LABS: Add Manual Diff / Slide Review NO; Basophils Absolute Auto 0 /uL (0-100); Basophils Percent Auto 0.5 % (0-2); Eosinophils Absolute Auto 100 /uL (0-450); Eosinophils Percent Auto 0.9 % (2-4); Hematocrit 42.3 % (41-53); Hemoglobin 14.1 g/dL (13.5-17.5); Lymphocytes Absolute Auto 800 /uL (1100-4500); Lymphocytes Percent Auto 8.3 % (25-40); Mean Corpuscular HGB Conc 33.4 % (30-36); Mean Corpuscular Hemoglobin 29.7 PG (26-34); Mean Corpuscular Volume 88.9 fL (80-100); Monocytes Absolute Auto 600 /uL (0-900); Monocytes Percent Auto 6.7 % (3-14); Neutrophils Absolute Auto 7600 /uL (1500-7000); Neutrophils Percent Auto 83.6 % (50-75); Platelet Count 266 X10^3/uL (150-400); Red Blood Cell Count 4.76 X10^6/uL (4.5-5.9); Red Cell Distribution Width 15.2 % (11.6-14.8); White Blood Cell Count 9.1 X10^3/uL (4.5-11.0)
[2018-07-09 12:40] LABS: INR 1.6 (0.9-1.3); PTT Partial Thromboplastin Tim 33 SECONDS (26.4-36.2); Prothrombin Time 18.5 SECONDS (10.1-12.7)
[2018-07-09 13:33] LABS: Alanine Aminotransferase 24 IU/L (21-72); Albumin Globulin Ratio 1.2 (1.0-2.8); Alkaline Phosphatase 66 U/L (38-126); Aspartate Aminotransferase 28 IU/L (17-59); BUN Creatinine Ratio 48.9 (6-22); Bilirubin Total 0.8 mg/dL (0.2-1.3); Blood Urea Nitrogen 44 mg/dL (9-20); Calcium 9.3 mg/dL (8.4-10.2); Carbon Dioxide 30 mmol/L (22-32); Chloride 100 mmol/L (98-107); Estimated Glomerular Filt Rate > 60.0 mL/min (>60); Globulin 3.4 g/dL (1.7-4.1); Glucose 132 mg/dL (80-110); HEMOLYSIS 29 (0-50); Potassium 3.9 mmol/L (3.4-5.1); Sodium 139 mmol/L (137-145); Total Protein 7.4 g/dL (6.3-8.2)
== END 2018-07-09 13:12 | disposition home or self-care (01) ==
PROVIDERS: Emergency Medicine; Emergency Provider Emergency Medicine; PCP Internal Medicine
DX: T83.511A Infection and inflammatory reaction due to indwelling urethral catheter, initial encounter (principal); I71.4 Abdominal aortic aneurysm, without rupture
CPT/HCPCS: 36591; 51705; 74177; 80053; 81001; 81015; 85025; 85610; 85730; 87077; 87086; 87186; 93005; 96361; 96365; 96375; 99284; 99285; J1885; J2405; Q9967

== ENCOUNTER 2022-08-29 14:10 | Inpatient (IN) | payer MEDICARE, MEDICAID, SELFPAY ==
[2022-08-29] VITALS (27 sets, daily range): BP systolic 128–157; BP diastolic 59–102; PULSE 60–86; RESP 16–21; TEMP 36.8–37.1; O2SAT 91–99; BMI 26.6
[2022-08-29 15:08] LABS: Add Manual Diff / Slide Review NO; Basophils Absolute Auto 0 /uL (0-100); Basophils Percent Auto 0.4 % (0-2); Eosinophils Absolute Auto 0 /uL (0-450); Eosinophils Percent Auto 0.3 % (2-4); Hematocrit 31.8 % (41-53); Hemoglobin 10.2 g/dL (13.5-17.5); Lymphocytes Absolute Auto 600 /uL (1100-4500); Lymphocytes Percent Auto 7.6 % (25-40); Mean Corpuscular Volume 81.2 fL (80-100); Monocytes Absolute Auto 600 /uL (0-900); Monocytes Percent Auto 8.3 % (3-14); Neutrophils Absolute Auto 6300 /uL (1500-7000); Neutrophils Percent Auto 83.4 % (50-75); Platelet Count 360 X10^3/uL (150-400); Red Blood Cell Count 3.92 X10^6/uL (4.5-5.9); White Blood Cell Count 7.5 X10^3/uL (4.5-11.0)
[2022-08-29 15:22] LABS: Alanine Aminotransferase 69 IU/L (<50); Albumin 3.4 g/dL (3.5-5.0); Albumin Globulin Ratio 0.8 (1.0-2.8); Alkaline Phosphatase 222 U/L (38-126); Aspartate Aminotransferase 56 IU/L (17-59); BUN Creatinine Ratio 41.4 (6-22); Blood Urea Nitrogen 24 mg/dL (9-20); Calcium 8.8 mg/dL (8.4-10.2); Carbon Dioxide 35 mmol/L (22-32); Chloride 96 mmol/L (98-107); Estimated Glomerular Filt Rate > 60 mL/min (>60); Globulin 4.2 g/dL (1.7-4.1); Glucose 122 mg/dL (80-110); HEMOLYSIS < 15 (0-50); Lipase 1175 U/L (23-300); Potassium 3.9 mmol/L (3.4-5.1); Sodium 134 mmol/L (137-145); Total Protein 7.6 g/dL (6.3-8.2)
--- NOTE | 2022-08-29 16:18 | DI.RAD.S_ITS ---
PROCEDURE: XR ACUTE ABDOMEN SERIES INDICATIONS: abd distention, sob TECHNIQUE: One view chest and two views of the abdomen were acquired. COMPARISON: None. FINDINGS: Surgical changes and devices: Lead less pacing device is noted. There is prior left hip arthroplasty. Brachytherapy seeds are noted in lower pelvis. Likely pe gastrostomy tube is seen in left upper quadrant abdomen. Chest: Lungs are clear. Heart size is enlarged. No pleural effusions. No pneumoperitoneum. Abdomen: Bowel gas pattern is nonobstructive. [id number] fecal stasis throughout the colon is seen extending to the rectum.. No suspicious calcifications. Visualized solid organ contours appear normal. Bones: No suspicious bony lesions. IMPRESSION: 1. Moderate constipation. No gross free air. 2. No acute cardiopulmonary pathology. Dictated by: Sameer Grace M.D. on 08/29/2022 at 17:35 Approved by: Sameer Grace M.D. on 08/29/2022 at 17:37
[2022-08-29 16:33] LABS: Lactate (Lactic Acid) 1.5 mmol/L (0.7-2.1)
--- NOTE | 2022-08-29 16:40 | DI.CT.S_ITS ---
PROCEDURE: CT ABDOMEN PELVIS W CON INDICATIONS: wounds on sacrum, recent shigella, +lipase, ? pancreatitis TECHNIQUE: After the administration of IV contrast, axial sections were acquired from the lung bases to the pubic symphysis. Coronal and sagittal reformats were performed. For radiation dose reduction, the following was used: automated exposure control, adjustment of mA and/or kV according to patient size. COMPARISON: Merged With [facility], CT, CT ABDOMEN PELVIS W CON, 07/09/2018, 7:15. FINDINGS: Image quality: Portions of the lower pelvis are suboptimally evaluated secondary to metallic streak artifact from hip arthroplasty. Lung bases: Patchy areas of opacity are noted within the lower lobes most notably on the left. Heart: No significant findings. ABDOMEN: Liver: Unremarkable. Gallbladder: Multiple stones are identified. There is an appearance of gallbladder wall thickening versus pericholecystic fluid. Biliary ducts: Unremarkable. Pancreas: Unremarkable. Spleen: Unremarkable. Adrenal Glands: Unremarkable. Kidneys and Ureters: Marked asymmetric right renal atrophy. Exophytic simple cysts are present bilaterally. Nonobstructing 9 mm inferior right renal pole calcification Hounsfield units 602. Stomach and Bowel: Stomach, small bowel loops, and colon are unremarkable. Moderate colonic stool without obstruction. Peritoneum: No abnormal intraperitoneal fluid. No free air. Ventral Wall: No hernia. Abdominal Nodes: No retroperitoneal or mesenteric adenopathy by size criteria. Vessels: Aorta is ectatic with aneurysmal dilation measuring 4.7 cm at the distal aspect immediately superior to the bifurcation. This was present on prior exam, at which time it measured 4.3 cm. PELVIS: Pelvic Organs: Radiation prostate seeds are present. Bladder: Poorly evaluated as it is collapsed with a Hart catheter. Pelvic Nodes: No enlarged lymph nodes. Miscellaneous: No inguinal hernias are seen. Bones: Unremarkable. IMPRESSION: Patchy areas of opacity within the lung bases left greater than right. While this could represent atelectasis, developing pneumonia cannot be excluded. Pancreas is normal. Cholelithiasis with appearance of pericholecystic fluid versus wall thickening. Cholecystitis cannot be excluded. Ultrasound is recommended for further evaluation. Dictated by: Lalitha Miranda M.D. on 08/29/2022 at 17:36 Approved by: Lalitha Miranda M.D. on 08/29/2022 at 17:40
[2022-08-29 16:43] LABS: NT-proBNP (BNP-Adult 18+) 3000 pg/mL (<450)
[2022-08-29 16:51] LABS: Procalcitonin 0.33 ng/mL (<0.5)
[2022-08-29 16:52] LABS: INR 1.7 (0.9-1.3); Prothrombin Time 19.7 SECONDS (10.1-12.7)
[2022-08-29 18:30] LABS: Adenovirus Not Detected (Not Detect); B. parapertussis Not Detected (Not Detecte); Bordetella pertussis Not Detected (Not Detecte); Chlamydophila pneumoniae Not Detected (Not Detect); Coronavirus 229E Not Detected (Not Detect); Coronavirus HKU1 Not Detected (Not Detect); Coronavirus NL 63 Detected (Not Detect); Coronavirus OC43 Not Detected (Not Detect); Human Metapneumovirus Not Detected (Not Detect); Human Rhinovirus/Enterovirus Not Detected (Not Detect); Influenza A Not Detected (Not Detect); Influenza B Not Detected (Not Detect); Mycoplasma pneumoniae Not Detected (Not Detect); Parainfluenza Virus 1 Not Detected (Not Detect); Parainfluenza Virus 2 Not Detected (Not Detect); Parainfluenza Virus 3 Not Detected (Not Detect); Parainfluenza Virus 4 Not Detected (Not Detect); Respiratory Syncytial Virus Not Detected (Not Detect); SARS- CoV-2 Not Detected (Not Detecte)
--- NOTE | 2022-08-29 18:49 | ED_ITS ---
HPI - Recheck/Abnormal Lab/Rx General Chief Complaint: Recheck/Abnormal Lab/Rx Stated Complaint: Ulcers Time Seen by Provider: 08/29/22 16:40 Source: patient, family and EMS Mode of arrival: EMS History of Present Illness HPI narrative: Patient is an 81-year-old male. Has a history of diabetes. Also has history of atrial fibrillation. Is on Eliquis. Was brought in by family under the direction of home health nurse for evaluation of what appears to be worsening decubitus ulcers. Patient's also states that he has had some sinus congestion and coughing over the past couple days. She denies any chest pain. No shortness of breath. No abdominal pain. He is also having diarrhea but this has been going on for many months now. They recently received a call from the health department telling them that he has a urinary tract infection. He is on an antibiotic which according to the record view shows that it is Macrobid. I think that this is a medicine that he takes every day for a prophylaxis. He is not currently on any treatment medications for urinary tract infection. The patient does have a suprapubic catheter in place. This has been in place for many years. This was placed secondary to complications of prostate cancer. He also has a G-tube in place. This has also been in place for many years. 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 He is not currently undergoing any treatment for malignancies. Approximately 1 month ago he was seen at an outside facility for weakness. He had CT scans and an ultrasound performed which did show gallbladder pathology but he would normal LFTs and lipase. He was not having any abdominal tenderness no specific treatment was made with regard to the gallbladder. He is had decubitus ulcers for some time now. Patient's states he is sedentary and does not walk. He has been getting home health because of these ulcers. Apparently 1 of the ul cers has been worsening and there was concern that there was bone exposure. 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 Surgical History H/O prostatectomy Social History household members: spouse Smoking Status: Current some day smoker alcohol intake: former Smoking Status: Unknown if ever smoked Substance Use Type: does not use Exam Initial Vital Signs Initial Vital Signs: Vital Signs Pulse Rate 63 08/29/22 14:29 Blood Pressure 152/88 H 08/29/22 14:29 Pulse Oximetry 99 08/29/22 14:29 Const General: No in distress and ill appearing HENMT Head: normal to inspection and normocephalic Eyes General: Yes appearance normal, both eyes and all related structures Resp Effort & Inspection: not tachypneic Auscultation: rhonchi Cardio Rate: regular rate Rhythm: regular rhythm GI Inspection: non-distended Palpation: soft and No tender Other: G-tube in place left upper quadrant. Suprapubic catheter in place Skin Other: Patient has findings on his buttocks and lower back and upper posterior thighs that are consistent with pressure changes. He has 2 areas of concern. One is located in the left upper buttocks. It is approximately 4 cm x 4 cm. There is minimal surrounding erythema. There is no necrotic tissue. There does appear to be bone felt with probing of this wound. He has a 2nd wound on the lower right buttocks that is approximately 2 cm x 2 cm. It does have muscle involvement but no bone. There is no surrounding erythema concerning for cellulitis. Neuro General: patient alert, patient awake and moves all extremities Extrem General: edema Psych Appearance: disheveled Course Orders Ordered: ED Orders 08/29/22 16:18 XR acute abdomen series Stat 08/29/22 16:22 Respiratory Panel (Film Array) Stat 08/29/22 16:40 CT abdomen pelvis w con Stat 08/29/22 16:45 Blood Culture Stat 08/29/22 17:45 Urinalysis and Microscopic Stat Urine Culture Stat 08/29/22 18:45 Wound Culture and Gram Stain Stat Wound Culture and Gram Stain Stat 08/29/22 18:51 US abdomen limited Stat 08/29/22 19:42 Consult to General Surgery Stat Acetaminophen (Acetaminophen 325 Mg Tablet) 650 mg PO Q6H PRN PRN Reason: Fever/Mild Pain (1-3) Albuterol/Ipratropium (Albuterol/Ipratropium 3 Ml Ampul) 3 ml INH RTQ4HR PRN PRN Reason: Shortness Of Breath Apixaban (Apixaban 5 Mg Tablet) 2.5 mg PO BID [facility] Last Admin: 08/29/22 23:11 Dose: 2.5 mg Documented By: CT Azithromycin (Azithromycin 250 Mg Tablet) 500 mg PO Q24H [facility] Dextrose (Dextrose 50 % In Water 25 Gm/50 Ml Syringe) 25 gm IV PRN PRN PRN Reason: Hypoglycemia Sodium Chloride (Normal Saline 0.9%) 1,000 mls @ 125 mls/hr IV CONT [facility] Last Admin: 08/29/22 19:28 Dose: 125 mls/hr Documented By: GC Piperacillin Sod/Tazobactam (Sod 3.375 gm/ Sodium Chloride) 100 mls @ 25 mls/hr IV Q8H [facility] Vancomycin HCl/Dextrose (Vancomycin) 2,000 mg in 400 mls @ 200 mls/hr IV NOW ONE Stop: 08/30/22 01:59 Last Admin: 08/30/22 01:00 Dose: 200 mls/hr Insulin Human Lispro (Insulin Lispro 100 Unit/Ml 3ml Vial) 0 unit SUBCUT ACHS [facility]; Protocol Naloxone HCl (Naloxone 0.4 Mg/Ml Vial) 0.2 mg IV Q2MIN PRN PRN Reason: Opiate Reversal Ondansetron HCl (Ondansetron 4 Mg/2 Ml Inj) 4 mg IV Q8HR PRN PRN Reason: Nausea And Vomiting Vancomycin HCl (Vancomycin Per Pharmacy) 1 request MISC NOW ONE Stop: 08/29/22 23:50 Discontinued Medications Piperacillin Sod/Tazobactam (Sod 4.5 gm/ Sodium Chloride) 100 mls @ 200 mls/hr IV NOW ONE Stop: 08/29/22 18:51 Last Infusion: 08/29/22 20:05 Dose: 0 mls/hr Documented By: Admin: 08/29/22 19:28 Dose: 200 mls/hr Documented By: RUPESH Azithromycin 500 mg/ Dextrose 250 mls @ 250 mls/hr IV NOW ONE Stop: 08/29/22 18:53 Last Infusion: 08/29/22 21:20 Dose: 0 mls/hr Documented By: Admin: 08/29/22 20:11 Dose: 250 mls/hr Documented By: ANAHY Ondansetron HCl (Ondansetron 4 Mg/2 Ml Inj) 4 mg IV NOW PRN PRN Reason: Nausea And Vomiting Vital Signs Vital signs: Vital Signs - 8 hr 08/29/22 17:05 08/29/22 17:05 08/29/22 17:30 Pulse Rate 67 Blood Pressure 144/65 H 152/63 H Pulse Oximetry 97 08/29/22 17:30 08/29/22 18:00 08/29/22 18:00 Pulse Rate 84 71 Blood Pressure 140/64 Pulse Oximetry 98 92 08/29/22 18:30 08/29/22 18:30 08/29/22 19:00 Pulse Rate 62 Blood Pressure 129/62 148/71 H Pulse Oximetry 95 08/29/22 19:00 08/29/22 19:30 08/29/22 19:30 Pulse Rate 86 69 Blood Pressure 142/68 H Pulse Oximetry 97 97 08/29/22 20:00 08/29/22 20:01 08/29/22 20:01 Pulse Rate 67 67 Blood Pressure 134/61 Pulse Oximetry 93 93 MDM - Recheck/Abnormal Lab/Rx Medical Records Attestation: I reviewed the patient's medical records. Lab Data Attestation: I reviewed the patient's lab results. 08/29/22 15:00 08/29/22 15:00 Labs: Lab Results 08/29/22 08/29/22 08/29/22 Range/Units 15:00 15:00 15:00 WBC 7.5 (4.5-11.0) X10^3/uL RBC 3.92 L (4.5-5.9) X10^6/uL Hgb 10.2 L (13.5-17.5) g/dL Hct 31.8 L (41-53) % MCV 81.2 (80-100) fL MCH 26.0 (26-34) PG MCHC 32.0 (30-36) % RDW 20.0 H (11.6-14.8) % Plt Count 360 (150-400) X10^3/uL Neut % (Auto) 83.4 H (50-75) % Lymph % (Auto) 7.6 L (25-40) % Dooly % (Auto) 8.3 (3-14) % Eos % (Auto) 0.3 L (2-4) % Baso % (Auto) 0.4 (0-2) % Neut # (Auto) 6300 (5569-0406) /uL Lymph # (Auto) 600 L (9708-4664) /uL Dooly # (Auto) 600 (0-900) /uL Eos # (Auto) 0 (0-450) /uL Baso # (Auto) 0 (0-100) /uL PT (10.1-12.7) SECONDS INR (0.9-1.3) APTT (26-36) SECONDS Sodium 134 L (137-145) mmol/L Potassium 3.9 (3.4-5.1) mmol/L Chloride 96 L (98-107) mmol/L Carbon Dioxide 35 H (22-32) mmol/L BUN 24 H (9-20) mg/dL Creatinine 0.58 L (0.66-1.25) mg/dL Estimated GFR > 60 (>60) mL/min BUN/Creatinine Ratio 41.4 H (6-22) Glucose 122 H (80-110) mg/dL Lactate (0.7-2.1) mmol/L Calcium 8.8 (8.4-10.2) mg/dL Total Bilirubin 1.0 (0.2-1.3) mg/dL AST 56 (17-59) IU/L ALT 69 H (<50) IU/L Alkaline Phosphatase 222 H (38-126) U/L NT-Pro-B Natriuret Pep 3000 H (<450) pg/mL Total Protein 7.6 (6.3-8.2) g/dL Albumin 3.4 L (3.5-5.0) g/dL Globulin 4.2 H (1.7-4.1) g/dL Albumin/Globulin Ratio 0.8 L (1.0-2.8) Lipase 1175 H (23-300) U/L Procalcitonin (<0.5) ng/mL Urine Color Urine Appearance Urine pH (4.5-8.0) Ur Specific Lawrence (1.000-1.035) Urine Protein (Negative) Urine Glucose (UA) (Negative) g/dL Urine Ketones (NEGATIVE) Urine Occult Blood (Negative) Urine Nitrate (Negative) Urine Bilirubin (NEGATIVE) Urine Urobilinogen (0.2) E.U./dL Ur Leukocyte Esterase (NEGATIVE) Urine RBC (0-5/HPF) Urine WBC (0-5/HPF) Amorphous Sediment Urine Bacteria (None) Chlamy pneumoniae PCR (Not Detect) Adenovirus (PCR) (Not Detect) B. pertussis DNA (PCR) (Not Detecte) B.parapertussis DNA PCR (Not Detecte) Coronavirus OC43 (PCR) (Not Detect) Coronavirus HKU1 (PCR) (Not Detect) Coronavirus 229E (PCR) (Not Detect) SARS-CoV-2 (PCR) (Not Detecte) Coronavirus NL63 (PCR) (Not Detect) Human Metapneumovir PCR (Not Detect) Influenza Type A (PCR) (Not Detect) Influenza Type B (PCR) (Not Detect) M. pneumoniae (PCR) (Not Detect) Parainfluenza 1 (PCR) (Not Detect) Parainfluenza 2 (PCR) (Not Detect) Parainfluenza 3 (PCR) (Not Detect) Parainfluenza 4 (PCR) (Not Detect) RSV (PCR) (Not Detect) Entero/Rhino (PCR) (Not Detect) 08/29/22 08/29/22 08/29/22 Range/Units 15:00 15:00 15:00 WBC (4.5-11.0) X10^3/uL RBC (4.5-5.9) X10^6/uL Hgb (13.5-17.5) g/dL Hct (41-53) % MCV (80-100) fL MCH (26-34) PG MCHC (30-36) % RDW (11.6-14.8) % Plt Count (150-400) X10^3/uL Neut % (Auto) (50-75) % Lymph % (Auto) (25-40) % Dooly % (Auto) (3-14) % Eos % (Auto) (2-4) % Baso % (Auto) (0-2) % Neut # (Auto) (8551-9002) /uL Lymph # (Auto) (4903-0284) /uL Dooly # (Auto) (0-900) /uL Eos # (Auto) (0-450) /uL Baso # (Auto) (0-100) /uL PT 19.7 H (10.1-12.7) SECONDS INR 1.7 H (0.9-1.3) APTT (26-36) SECONDS Sodium (137-145) mmol/L Potassium (3.4-5.1) mmol/L Chloride (98-107) mmol/L Carbon Dioxide (22-32) mmol/L BUN (9-20) mg/dL Creatinine (0.66-1.25) mg/dL Estimated GFR (>60) mL/min BUN/Creatinine Ratio (6-22) Glucose (80-110) mg/dL Lactate 1.5 (0.7-2.1) mmol/L Calcium (8.4-10.2) mg/dL Total Bilirubin (0.2-1.3) mg/dL AST (17-59) IU/L ALT (<50) IU/L Alkaline Phosphatase (38-126) U/L NT-Pro-B Natriuret Pep (<450) pg/mL Total Protein (6.3-8.2) g/dL Albumin (3.5-5.0) g/dL Globulin (1.7-4.1) g/dL Albumin/Globulin Ratio (1.0-2.8) Lipase (23-300) U/L Procalcitonin 0.33 (<0.5) ng/mL Urine Color Urine Appearance Urine pH (4.5-8.0) Ur Specific Lawrence (1.000-1.035) Urine Protein (Negative) Urine Glucose (UA) (Negative) g/dL Urine Ketones (NEGATIVE) Urine Occult Blood (Negative) Urine Nitrate (Negative) Urine Bilirubin (NEGATIVE) Urine Urobilinogen (0.2) E.U./dL Ur Leukocyte Esterase (NEGATIVE) Urine RBC (0-5/HPF) Urine WBC (0-5/HPF) Amorphous Sediment Urine Bacteria (None) Chlamy pneumoniae PCR (Not Detect) Adenovirus (PCR) (Not Detect) B. pertussis DNA (PCR) (Not Detecte) B.parapertussis DNA PCR (Not Detecte) Coronavirus OC43 (PCR) (Not Detect) Coronavirus HKU1 (PCR) (Not Detect) Coronavirus 229E (PCR) (Not Detect) SARS-CoV-2 (PCR) (Not Detecte) Coronavirus NL63 (PCR) (Not Detect) Human Metapneumovir PCR (Not Detect) Influenza Type A (PCR) (Not Detect) Influenza Type B (PCR) (Not Detect) M. pneumoniae (PCR) (Not Detect) Parainfluenza 1 (PCR) (Not Detect) Parainfluenza 2 (PCR) (Not Detect) Parainfluenza 3 (PCR) (Not Detect) Parainfluenza 4 (PCR) (Not Detect) RSV (PCR) (Not Detect) Entero/Rhino (PCR) (Not Detect) 08/29/22 08/29/22 08/29/22 Range/Units 15:00 16:22 17:45 WBC (4.5-11.0) X10^3/uL RBC (4.5-5.9) X10^6/uL Hgb (13.5-17.5) g/dL Hct (41-53) % MCV (80-100) fL MCH (26-34) PG MCHC (30-36) % RDW (11.6-14.8) % Plt Count (150-400) X10^3/uL Neut % (Auto) (50-75) % Lymph % (Auto) (25-40) % Dooly % (Auto) (3-14) % Eos % (Auto) (2-4) % Baso % (Auto) (0-2) % Neut # (Auto) (3270-9423) /uL Lymph # (Auto) (0261-0121) /uL Dooly # (Auto) (0-900) /uL Eos # (Auto) (0-450) /uL Baso # (Auto) (0-100) /uL PT (10.1-12.7) SECONDS INR (0.9-1.3) APTT 33 (26-36) SECONDS Sodium (137-145) mmol/L Potassium (3.4-5.1) mmol/L Chloride (98-107) mmol/L Carbon Dioxide (22-32) mmol/L BUN (9-20) mg/dL Creatinine (0.66-1.25) mg/dL Estimated GFR (>60) mL/min BUN/Creatinine Ratio (6-22) Glucose (80-110) mg/dL Lactate (0.7-2.1) mmol/L Calcium (8.4-10.2) mg/dL Total Bilirubin (0.2-1.3) mg/dL AST (17-59) IU/L ALT (<50) IU/L Alkaline Phosphatase (38-126) U/L NT-Pro-B Natriuret Pep (<450) pg/mL Total Protein (6.3-8.2) g/dL Albumin (3.5-5.0) g/dL Globulin (1.7-4.1) g/dL Albumin/Globulin Ratio (1.0-2.8) Lipase (23-300) U/L Procalcitonin (<0.5) ng/mL Urine Color Yellow Urine Appearance Cloudy Urine pH 8.0 (4.5-8.0) Ur Specific Lawrence 1.015 (1.000-1.035) Urine Protein 2+ H (Negative) Urine Glucose (UA) Negative (Negative) g/dL Urine Ketones Negative (NEGATIVE) Urine Occult Blood 2+ H (Negative) Urine Nitrate Positive H (Negative) Urine Bilirubin Negative (NEGATIVE) Urine Urobilinogen 1.0 (0.2) E.U./dL Ur Leukocyte Esterase 3+ H (NEGATIVE) Urine RBC 5-10/hpf H (0-5/HPF) Urine WBC 5-10/hpf H (0-5/HPF) Amorphous Sediment 2+ Urine Bacteria Moderate (10-30) H (None) Chlamy pneumoniae PCR Not detected (Not Detect) Adenovirus (PCR) Not detected (Not Detect) B. pertussis DNA (PCR) Not detected (Not Detecte) B.parapertussis DNA PCR Not detected (Not Detecte) Coronavirus OC43 (PCR) Not detected (Not Detect) Coronavirus HKU1 (PCR) Not detected (Not Detect) Coronavirus 229E (PCR) Not detected (Not Detect) SARS-CoV-2 (PCR) Not detected (Not Detecte) Coronavirus NL63 (PCR) Detected H (Not Detect) Human Metapneumovir PCR Not detected (Not Detect) Influenza Type A (PCR) Not detected (Not Detect) Influenza Type B (PCR) Not detected (Not Detect) M. pneumoniae (PCR) Not detected (Not Detect) Parainfluenza 1 (PCR) Not detected (Not Detect) Parainfluenza 2 (PCR) Not detected (Not Detect) Parainfluenza 3 (PCR) Not detected (Not Detect) Parainfluenza 4 (PCR) Not detected (Not Detect) RSV (PCR) Not detected (Not Detect) Entero/Rhino (PCR) Not detected (Not Detect) Imaging Data Abdominal x-ray: Radiologist's Impression: PROCEDURE:? XR ACUTE ABDOMEN SERIES ? INDICATIONS:? abd distention, sob ? TECHNIQUE:? One view chest and two views of the abdomen were acquired.? ? COMPARISON:? None. ? FINDINGS:? ? Surgical changes and devices:? Lead less pacing device is noted.? There is prior left hip arthroplasty.? Brachytherapy seeds are noted in lower pelvis.? Likely pe gastrostomy tube is seen in left upper quadrant abdomen. ? Chest:? Lungs are clear.? Heart size is enlarged.? No pleural effusions.? No pneumoperitoneum.? ? Abdomen:? Bowel gas pattern is nonobstructive.? Edrx-gb-dwcsugty fecal stasis throughout the colon is seen extending to the rectum..? No suspicious calcifications.? Visualized solid organ contours appear normal.? ? Bones:? No suspicious bony lesions.? ? IMPRESSION:? 1. Moderate constipation.? No gross free air. 2. No acute cardiopulmonary pathology.? CT scan - abdomen/pelvis: Radiologist's Impression: PROCEDURE:? CT ABDOMEN PELVIS W CON ? INDICATIONS:? wounds on sacrum, recent shigella, +lipase, ? pancreatitis ? TECHNIQUE:? After the administration of IV contrast, axial sections were acquired from the lung bases to the pubic symphysis.? Coronal and sagittal reformats were performed.? For radiation dose reduction, the following was used:? automated exposure control, adjustment of mA and/or kV according to patient size. ? COMPARISON:? [facility], CT, CT ABDOMEN PELVIS W CON, 07/09/2018, 7:15. ? FINDINGS:? Image quality:? Portions of the lower pelvis are suboptimally evaluated secondary to metallic streak artifact from hip arthroplasty. ? Lung bases:? Patchy areas of opacity are noted within the lower lobes most notably on the left. Heart:? No significant findings. ? ? ABDOMEN: Liver:? Unremarkable.? ? Gallbladder:? Multiple stones are identified.? There is an appearance of gallbladder wall thickening versus pericholecystic fluid.? ? Biliary ducts:? Unremarkable.? ? Pancreas:? Unremarkable.? ? Spleen:? Unremarkable.? ? Adrenal Glands:? Unremarkable.? ? Kidneys and Ureters:? Marked asymmetric right renal atrophy.? Exophytic simple cysts are present bilaterally.? Nonobstructing 9 mm inferior right renal pole calcification Hounsfield units 602. ? Stomach and Bowel:? Stomach, small bowel loops, and colon are unremarkable.? Moderate colonic stool without obstruction. Peritoneum:? No abnormal intraperitoneal fluid.? No free air.? ? Ventral Wall: ? No hernia.? Abdominal Nodes:? No retroperitoneal or mesenteric adenopathy by size criteria.? Vessels:? 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 This was present on prior exam, at which time it measured 4.3 cm. ? PELVIS: Pelvic Organs:? Radiation prostate seeds are present. Bladder:? Poorly evaluated as it is collapsed with a Hart catheter. Pelvic Nodes: No enlarged lymph nodes.? Miscellaneous: No inguinal hernias are seen. ? ? ? Bones:? Unremarkable.? IMPRESSION:? ? Patchy areas of opacity within the lung bases left greater than right.? While this could represent atelectasis, developing pneumonia cannot be excluded. ? Pancreas is normal. ? Cholelithiasis with appearance of pericholecystic fluid versus wall thickening.? Cholecystitis cannot be excluded.? Ultrasound is recommended for further evaluation. US - abdomen: Radiologist's Impression: PROCEDURE: US ABDOMEN LIMITED ? INDICATIONS:? RUQ US eval for GB pathology ? TECHNIQUE:? Real-time focused scanning was performed of the abdomen, with image documentation.? ? COMPARISON:? [facility], CT, CT ABDOMEN PELVIS W CON, 08/29/2022, 16:50. ? FINDINGS:? Gallbladder demonstrates numerous foci of increased echogenicity.? Mild pericholecystic fluid is present.? Wall thickness measures 1.1 mm.? Common bile duct measures 8.3 mm. ? IMPRESSION:? Cholelithiasis.? Pericholecystic fluid is present.? Despite normal wall thickness, presence of pericholecystic fluid and stones raises suspicion for dev eloping cholecystitis.? Recommend clinical correlation ECG Data Attestation: I personally reviewed and interpreted this ECG as follows: Prior ECG tracings: available for review Interpretation: Ventricularly paced Rate is 66 QRS [address] T wave changes MDM Narrative Medical decision making narrative: Patient is very poor appearing. He has multiple chronic medical issues in peri ious stages of the disease process. He is positive for a non COVID-19 coronavirus I suspect that this is the cause of the congestion and cough that his has described over the past couple days. He is not hypoxic and his lungs are clear any is not tachypneic. He does have a suprapubic catheter in place that is draining. Review of his medical record shows that he has a Pseudomonas urinary tract infection with culture and sensitivities showing resistance to oral antibiotics. It is susceptible to imipenem and Zosyn. He was started on Zosyn secondary to this. He is not having abdominal tenderness. CT scan of his abdomen does show gallbladder pathology in the right upper quadrant ultrasound also showing pathology. It does appear to be worsening given the comparison to his prior studies. His lipase is elevated today although he has no signs of pancreatitis on his CT scan and has no left upper quadrant tenderness. He does have a slight elevation in his LFTs and alkaline phosphatase. I did discuss this with Dr. Taylor who was on-call for General surgery who did not recommend emergent surgery but will follow along after admission. Patient does have pressure changes to his lower back and buttocks and upper thighs. He is 2 wounds on his back that were cultured. One of them does appear to have bone involvement. There is some surrounding erythema but it is more consistent with inflammation and not with infectious changes. Given his presentation and his chronic medical issues patient does require admission to the hospital for further evaluation and treatment. Discussed the case with Dr. Krishnan who was on-call for Medicine who will admit. Discussed the need for a dmission with the patient and family. They expressed understanding and agreement as well. Discharge Plan Departure Patient Disposition: Admitted As Inpatient Clinical Impression: Urinary tract infection, Decubitus ulcer, stage IV, Acute upper respiratory infection, Cholelithiasis Admit Date/Time: 08/29/22 20:15 Admit Provider: Felix Krishnan
--- NOTE | 2022-08-29 18:51 | DI.US.S_ITS ---
PROCEDURE: US ABDOMEN LIMITED INDICATIONS: RUQ US eval for GB pathology TECHNIQUE: Real-time focused scanning was performed of the abdomen, with image documentation. COMPARISON: [facility], CT, CT ABDOMEN PELVIS W CON, 08/29/2022, 16:50. FINDINGS: Gallbladder demonstrates numerous foci of increased echogenicity. Mild pericholecystic fluid is present. Wall thickness measures 1.1 mm. Common bile duct measures 8.3 mm. IMPRESSION: Cholelithiasis. Pericholecystic fluid is present. Despite normal wall thickness, presence of pericholecystic fluid and stones raises suspicion for developing cholecystitis. Recommend clinical correlation Dictated by: Lalitha Miranda M.D. on 08/29/2022 at 19:44 Approved by: Lalitha Miranda M.D. on 08/29/2022 at 19:45
[2022-08-29 19:06] LABS: PTT Partial Thromboplastin Tim 33 SECONDS (26-36)
[2022-08-29 19:09] LABS: Appearance Urine UA CLOUDY; Bilirubin Urine UA NEGATIVE (NEGATIVE); Color Urine UA YELLOW; Glucose Urine UA NEGATIVE (Negative); Ketones Urine UA NEGATIVE (NEGATIVE); Leukocyte Esterase Urine UA 3+ (NEGATIVE); Nitrite Urine UA POSITIVE (Negative); Occult Blood Urine UA 2+ (Negative); Protein Urine UA 2+ (Negative); Specific Gravity Urine UA 1.015 (1.000-1.035)
[2022-08-29 19:16] LABS: Amorphous Sediment Urine 2+; RBC Urine 5-10/HPF (0-5/HPF); WBC Urine 5-10/HPF (0-5/HPF)
[2022-08-29 19:17] LABS: Bacteria Urine Moderate (10-30)
[2022-08-29] MEDS: PIPERACILLIN/TAZO 4.5 GM in SODIUM CHLORIDE 0.9% 100 ML IV (19:28)
[2022-08-29] MEDS: SODIUM CHLORIDE 0.9% 1,000 ML 125 ML IV (19:28)
[2022-08-29] MEDS: AZITHROMYCIN 500 MG in DEXTROSE 5% IN WATER 250 ML 250 MG IV (20:11)
--- NOTE | 2022-08-29 21:33 | P.HP_ITS ---
History of Present Illness History of Present Illness Date Patient Seen: 08/29/22 Time Patient Seen: 23:30 Chief complaint: Ulcers Narrative: Mr. 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 He apparently has had chronic diarrhea for months. He presented to [facility] recently with fatigue in Jul 2022. At that time was found to have pseudomonas UTI. He also had gallbladder wall changes, but thought not to have acute cholecystitis. He has apparently had ongoing symptoms. He had stool culture recently sent, that is preliminary but possibly concerning for Shigella. He has had a repeat UA done recently that again grew back pseudomonas UTI which as resistant to multiple drugs but sensitive to zosyn and imipenem. Apparently he was brought in after recommendation from home health for worsening sacral ulcers. He also has a cough, no shortness of breath, and is active vaping. He denies any abdominal pain, nausea, vomiting. In the ED workupw as done, vitals notable for blood pressure 150/s80s, heart rate in the 60s, sats in the high 90s on room air. Labs notable for WBC 7.5, hgb 10.2. INR 1.7. Na 134, creatinine 0.58. BNP 3000. Lipase 1175. Procal 0.33. UA with positive nitrates, 3+ leuk esterase, 5-10 wbcs, moderate bacteria. Respiratory panel with coronavirus nl63 positive. Chest xray with no acute process. CT abdomen pelvis with patchy opacity in left lung base, and gallbladder with pericholecystic fluid versus wall thickening. Abdominal ultrasound with cholelithiasis, pericholecystic fluid. 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 Surgery was consulted and said patient had no current indication for surgery. He was ordered for IV antibiotics and admitted for further treatment. [facility] Medical History Cancer of parotid gland Chronic indwelling Hart catheter PEG tube malfunction Surgical History H/O prostatectomy Social History household members: spouse Smoking Status: Current some day smoker alcohol intake: former Meds Home Medications and Allergies Home Medications Medication Instructions Recorded Confirmed Type apixaban 2.5 mg tablet (Eliquis) 2.5 mg PO BID 08/29/22 08/29/22 History enalapril maleate 5 mg tablet 5 mg PO BID 08/29/22 08/29/22 History potassium chloride 20 mEq oral 20 meq feeding tube DAILY 08/29/22 08/29/22 Hist ory packet (Klor-Con) Allergies Allergy/AdvReac Type Severity Reaction Status Date / Time codeine Allergy Verified 08/29/22 16:40 Review of Systems Review of Systems Narrative: 14 systems reviewed and negative aside from what is noted in HPI Exam Vital Signs (past 8 hours): - 08/29/22 14:40 08/29/22 14:29 08/29/22 14:29 Temperature 98.3 F Pulse Rate 65 63 Respiratory Rate 16 Blood Pressure 152/88 H 152/88 H Pulse Oximetry 97 99 Oxygen Delivery Method Room Air 08/29/22 14:30 08/29/22 14:31 08/29/22 14:31 Temperature Pulse Rate 67 66 Respiratory Rate Blood Pressure 145/65 H Pulse Oximetry 98 97 Oxygen Delivery Method 08/29/22 15:00 08/29/22 15:01 08/29/22 15:01 Temperature Pulse Rate 67 65 Respiratory Rate Blood Pressure 157/72 H Pulse Oximetry 99 98 Oxygen Delivery Method 08/29/22 15:15 08/29/22 15:15 08/29/22 15:30 Temperature Pulse Rate 63 Respiratory Rate Blood Pressure 156/73 H 145/68 H Pulse Oximetry 98 Oxygen Delivery Method 08/29/22 15:30 08/29/22 16:00 08/29/22 16:01 Temperature Pulse Rate 65 60 Respiratory Rate Blood Pressure 155/71 H Pulse Oximetry 96 98 Oxygen Delivery Method 08/29/22 16:01 08/29/22 16:15 08/29/22 16:15 Temperature Pulse Rate 60 65 Respiratory Rate Blood Pressure 147/67 H Pulse Oximetry 98 97 Oxygen Delivery Method 08/29/22 16:52 08/29/22 17:00 08/29/22 17:05 Temperature Pulse Rate 69 68 67 Respiratory Rate Blood Pressure Pulse Oximetry 91 97 Oxygen Delivery Method 08/29/22 17:05 08/29/22 17:30 08/29/22 17:30 Temperature Pulse Rate 84 Respiratory Rate Blood Pressure 144/65 H 152/63 H Pulse Oximetry 98 Oxygen Delivery Method 08/29/22 18:00 08/29/22 18:00 08/29/22 18:30 Temperature Pulse Rate 71 Respiratory Rate Blood Pressure 140/64 129/62 Pulse Oximetry 92 Oxygen Delivery Method 08/29/22 18:30 08/29/22 19:00 08/29/22 19:00 Temperature Pulse Rate 62 86 Respiratory Rate Blood Pressure 148/71 H Pulse Oximetry 95 97 Oxygen Delivery Method 08/29/22 19:30 08/29/22 19:30 08/29/22 20:00 Temperature Pulse Rate 69 67 Respiratory Rate Blood Pressure 142/68 H Pulse Oximetry 97 93 Oxygen Delivery Method 08/29/22 20:01 08/29/22 20:01 08/29/22 20:30 Temperature Pulse Rate 67 Respiratory Rate Blood Pressure 134/61 128/81 Pulse Oximetry 93 Oxygen Delivery Method 08/29/22 20:30 08/29/22 21:00 08/29/22 21:01 Temperature Pulse Rate 64 68 62 Respiratory Rate Blood Pressure Pulse Oximetry 93 96 95 Oxygen Delivery Method 08/29/22 21:01 Temperature Pulse Rate Respiratory Rate Blood Pressure 133/59 L Pulse Oximetry Oxygen Delivery Method Oxygen Delivery Method Room Air Narrative Exam Narrative: GEN: coughing, otherwise no acute distress HEENT: moist mucous membranes, PERRL NECK: trachea midline, no JVD PULM: coarse breath sounds bilaterally, no wheezes, rhonchi CV: irregular, no murmurs ABD: soft, hernia noted, left lower quadrant with mild tenderness, suprapubic catheter and peg tube noted with incision site clean dry and without erythema EXT: warm and well perfused, 1+ edema BACK: erythematous back, one ucler stage IV, another stage III, no purulence noted NEURO: awake, alert, oriented, no focal deficits Objective Labs 08/29/22 15:00 08/29/22 15:00 Labs: Laboratory Results - last 24 hr 08/29/22 08/29/22 08/29/22 15:00 15:00 15:00 WBC 7.5 RBC 3.92 L Hgb 10.2 L Hct 31.8 L MCV 81.2 MCH 26.0 MCHC 32.0 RDW 20.0 H Plt Count 360 Neut % (Auto) 83.4 H Lymph % (Auto) 7.6 L [place] % (Auto) 8.3 Eos % (Auto) 0.3 L Baso % (Auto) 0.4 Neut # (Auto) 6300 Lymph # (Auto) 600 L [place]ila # (Auto) 600 Eos # (Auto) 0 Baso # (Auto) 0 PT INR APTT Sodium 134 L Potassium 3.9 Chloride 96 L Carbon Dioxide 35 H BUN 24 H Creatinine 0.58 L Estimated GFR > 60 BUN/Creatinine Ratio 41.4 H Glucose 122 H Lactate Calcium 8.8 Total Bilirubin 1.0 AST 56 ALT 69 H Alkaline Phosphatase 222 H NT-Pro-B Natriuret Pep 3000 H Total Protein 7.6 Albumin 3.4 L Globulin 4.2 H Albumin/Globulin Ratio 0.8 L Lipase 1175 H Procalcitonin Urine Color Urine Appearance Urine pH Ur Specific [place] Urine Protein Urine Glucose (UA) Urine Ketones Urine Occult Blood Urine Nitrate Urine Bilirubin Urine Urobilinogen Ur Leukocyte Esterase Urine RBC Urine WBC Amorphous Sediment Urine Bacteria Chlamy pneumoniae PCR Adenovirus (PCR) B. pertussis DNA (PCR) B.parapertussis DNA PCR Coronavirus OC43 (PCR) Coronavirus HKU1 (PCR) Coronavirus 229E (PCR) SARS-CoV-2 (PCR) Coronavirus NL63 (PCR) Human Metapneumovir PCR Influenza Type A (PCR) Influenza Type B (PCR) M. pneumoniae (PCR) Parainfluenza 1 (PCR) Parainfluenza 2 (PCR) Parainfluenza 3 (PCR) Parainfluenza 4 (PCR) RSV (PCR) Entero/Rhino (PCR) 08/29/22 08/29/22 08/29/22 15:00 15:00 15:00 WBC RBC Hgb Hct MCV MCH MCHC RDW Plt Count Neut % (Auto) Lymph % (Auto) [place] % (Auto) Eos % (Auto) Baso % (Auto) Neut # (Auto) Lymph # (Auto) [place] # (Auto) Eos # (Auto) Baso # (Auto) PT 19.7 H INR 1.7 H APTT Sodium Potassium Chloride Carbon Dioxide BUN Creatinine Estimated GFR BUN/Creatinine Ratio Glucose Lactate 1.5 Calcium Total Bilirubin AST ALT Alkaline Phosphatase NT-Pro-B Natriuret Pep Total Protein Albumin Globulin Albumin/Globulin Ratio Lipase Procalcitonin 0.33 Urine Color Urine Appearance Urine pH Ur Specific [place] Urine Protein Urine Glucose (UA) Urine Ketones Urine Occult Blood Urine Nitrate Urine Bilirubin Urine Urobilinogen Ur Leukocyte Esterase Urine RBC Urine WBC Amorphous Sediment Urine Bacteria Chlamy pneumoniae PCR Adenovirus (PCR) B. pertussis DNA (PCR) B.parapertussis DNA PCR Coronavirus OC43 (PCR) Coronavirus HKU1 (PCR) Coronavirus 229E (PCR) SARS-CoV-2 (PCR) Coronavirus NL63 (PCR) Human Metapneumovir PCR Influenza Type A (PCR) Influenza Type B (PCR) M. pneumoniae (PCR) Parainfluenza 1 (PCR) Parainfluenza 2 (PCR) Parainfluenza 3 (PCR) Parainfluenza 4 (PCR) RSV (PCR) Entero/Rhino (PCR) 08/29/22 08/29/22 08/29/22 15:00 16:22 17:45 WBC RBC Hgb Hct MCV MCH MCHC RDW Plt Count Neut % (Auto) Lymph % (Auto) Gila % (Auto) Eos % (Auto) Baso % (Auto) Neut # (Auto) Lymph # (Auto) G[place] # (Auto) Eos # (Auto) Baso # (Auto) PT INR APTT 33 Sodium Potassium Chloride Carbon Dioxide BUN Creatinine Estimated GFR BUN/Creatinine Ratio Glucose Lactate Calcium Total Bilirubin AST ALT Alkaline Phosphatase NT-Pro-B Natriuret Pep Total Protein Albumin Globulin Albumin/Globulin Ratio Lipase Procalcitonin Urine Color Yellow Urine Appearance Cloudy Urine pH 8.0 Ur Specific [place] 1.015 Urine Protein 2+ H Urine Glucose (UA) Negative Urine Ketones Negative Urine Occult Blood 2+ H Urine Nitrate Positive H Urine Bilirubin Negative Urine Urobilinogen 1.0 Ur Leukocyte Esterase 3+ H Urine RBC 5-10/hpf H Urine WBC 5-10/hpf H Amorphous Sediment 2+ Urine Bacteria Moderate (10-30) H Chlamy pneumoniae PCR Not detected Adenovirus (PCR) Not detected B. pertussis DNA (PCR) Not detected B.parapertussis DNA PCR Not detected Coronavirus OC43 (PCR) Not detected Coronavirus HKU1 (PCR) Not detected Coronavirus 229E (PCR) Not detected SARS-CoV-2 (PCR) Not detected Coronavirus NL63 (PCR) Detected H Human Metapneumovir PCR Not detected Influenza Type A (PCR) Not detected Influenza Type B (PCR) Not detected M. pneumoniae (PCR) Not detected Parainfluenza 1 (PCR) Not detected Parainfluenza 2 (PCR) Not detected Parainfluenza 3 (PCR) Not detected Parainfluenza 4 (PCR) Not detected RSV (PCR) Not detected Entero/Rhino (PCR) Not detected Assessment & Plan Assessment & Plan narrative: 1. Multidrug resistant Pseudomonas UTI secondary to chronic suprapubic catheter -repeat UA still positive, await urine and blood cultures -for now ordered for zosyn, also sensitive to imipenem on previous sensitivities 2. Shigella with diarrhea -presumed positive off preliminary reports sent from other hospital -plan for 3 days oral azithromycin 500mg daily -follow up final stool studies 3. Sacral decubitus ulcer stage IV -with erythema concern for infection -swab done in ED -follow up cultures -in addition to above antibiotics for now will treat with vancomycin -surgery consulted in ED, appreciate recs 4. Viral respiratory infection in setting of COPD without exacerbation -currently with a mild cough -ordered PRN nebs, and already on azithromycin for above infection -if worsening will start steroids 5. Questionable cholecystitis -on admission without abdominal pain, ruq tenderness, no leukocytosis -appreciate surgical consult with no urgent indication for surgery -continue antibiotics as above 6. s/p PEG secondary to history of parotid gland cancer -dietary consult 7. History of prostate cancer -s/p suprapubic catheter 8. Atrial fibrillation -continue eliquis as no urgent need for surgery 10. NIMA -not on cpap I have discussed plan with patient. I have discussed plan of care with ED physician and bedside nurse. I have reviewed labs, chest xray and CT imaging. Quality [facility] - Meds 'Current medications' to include all prescriptions, [id number] products, herbals, cannabis/cannabidiol products, and vitamin/mineral/dietary (nutritiona l) supplements. I have utilized all available resources to obtain, update, or review the patient?s current medications. [If Yes, STOP here]: Yes
[2022-08-29] MEDS: APIXABAN 5 MG TABLET 2.5 MG PO (23:11)
[2022-08-30] MEDS: VANCOMYCIN 2,000 MG/400 ML PIGGYBACK 200 MG IV (01:00)
--- NOTE | 2022-08-30 01:59 | PC.NURSE ---
Pt admitted from ER around 2224 via stretcher. pt is non-ambulatory, pt was cursing and yelling at staff if you don't get me my vape I will fucking leave right now. Spoke to patients over the phone who states pt's vape is actually in his desk at home. According to patient's she stated that pt wants to be a full code. is concerned about transportation and ways to get him to see his PCP and is requesting for a tilt wheelchair. will be bringing patient's medication list in the am.
[2022-08-30 03:10] VITALS: BP 147/62; PULSE 61; RESP 18; TEMP 36.3; O2SAT 97
[2022-08-30] MEDS: PIPERACILLIN/TAZO 3.375 GM in SODIUM CHLORIDE 0.9% 100 ML IV ×3 (03:16→23:26)
--- NOTE | 2022-08-30 03:58 | PC.WOUNDPHOT ---
06/08 208/06 1. Excoriation, skin breakdown, pressure ulcers 2. 3x2x1 cm unstageable PI on coccyx with 4 cm tunneling superior, and 3 cm tunneling right. Bone visible. Small amount foul smelling purulent drainage. 3. 2x2x2 cm stage III PI, in R gluteal fold with 1 cm undermining around borders. Small amount foul smelling purulent drainage. 4. 1x1 cm weeping open area on L buttock. 5. 1x3 cm scabbed wound on L medial thigh. 6. Pinpoint unstageable PI on R lateral ankle.
[2022-08-30 05:47] LABS: Add Manual Diff / Slide Review NO; Basophils Absolute Auto 0 /uL (0-100); Basophils Percent Auto 0.9 % (0-2); Eosinophils Absolute Auto 0 /uL (0-450); Eosinophils Percent Auto 0.7 % (2-4); Hematocrit 29.6 % (41-53); Hemoglobin 9.5 g/dL (13.5-17.5); Lymphocytes Absolute Auto 600 /uL (1100-4500); Lymphocytes Percent Auto 11.8 % (25-40); Mean Corpuscular HGB Conc 32.2 % (30-36); Mean Corpuscular Hemoglobin 26.1 PG (26-34); Mean Corpuscular Volume 81.1 fL (80-100); Monocytes Absolute Auto 600 /uL (0-900); Monocytes Percent Auto 11.5 % (3-14); Neutrophils Absolute Auto 4000 /uL (1500-7000); Neutrophils Percent Auto 75.1 % (50-75); Platelet Count 322 X10^3/uL (150-400); Red Blood Cell Count 3.65 X10^6/uL (4.5-5.9); Red Cell Distribution Width 20.2 % (11.6-14.8); White Blood Cell Count 5.3 X10^3/uL (4.5-11.0)
[2022-08-30 05:53] LABS: BUN Creatinine Ratio 32.8 (6-22); Blood Urea Nitrogen 19 mg/dL (9-20); Calcium 8.1 mg/dL (8.4-10.2); Carbon Dioxide 31 mmol/L (22-32); Chloride 96 mmol/L (98-107); Estimated Glomerular Filt Rate > 60 mL/min (>60); Glucose 77 mg/dL (80-110); HEMOLYSIS < 15 (0-50); Potassium 3.3 mmol/L (3.4-5.1); Sodium 135 mmol/L (137-145)
[2022-08-30 06:47] LABS: Anisocytosis 3+; Hypochromasia 1+
[2022-08-30 08:00] VITALS: BP 145/52; PULSE 64; RESP 18; O2SAT 94
[2022-08-30] MEDS: APIXABAN 5 MG TABLET 2.5 MG PO ×2 (08:16→20:37)
[2022-08-30] MEDS: VANCOMYCIN 1,250 MG/250 ML PIGGYBACK 250 MG IV ×2 (08:16→15:17)
--- NOTE | 2022-08-30 08:21 | PM.PN.1 ---
Subjective Subjective Interval history: Patient has no complaints other than some goop in his right eye. He thinks he is in [place] currently. Exam Vital Signs (past 8 hours): - 08/30/22 03:10 08/30/22 08:00 Temperature 97.4 F L Pulse Rate 61 64 Respiratory Rate 18 18 Blood Pressure 147/62 H 145/52 H Pulse Oximetry 97 94 Oxygen Flow Rate 0 0 Oxygen Delivery Method Room Air Oxygen Flow Rate 0 Narrative Exam Narrative: GEN: coughing, otherwise no acute distress HEENT: moist mucous membranes, PERRL, bilateral conjunctivitis with drainage R>L NECK: trachea midline, no JVD PULM: coarse breath sounds bilaterally, no wheezes, rhonchi CV: irregular, no murmurs ABD: soft, hernia noted, left lower quadrant with mild tenderness, suprapubic catheter and peg tube noted with incision site clean dry and without erythema EXT: warm and well perfused, 1+ edema BACK: erythematous back, one ucler stage IV, another stage III, no purulence noted NEURO: awake, alert, oriented, no focal deficits Objective Labs 08/30/22 05:22 08/30/22 05:22 Labs: Laboratory Results - last 24 hr 08/29/22 08/29/22 08/29/22 15:00 15:00 15:00 WBC 7.5 RBC 3.92 L Hgb 10.2 L Hct 31.8 L MCV 81.2 MCH 26.0 MCHC 32.0 RDW 20.0 H Plt Count 360 Neut % (Auto) 83.4 H Lymph % (Auto) 7.6 L [place] % (Auto) 8.3 Eos % (Auto) 0.3 L Baso % (Auto) 0.4 Neut # (Auto) 6300 Lymph # (Auto) 600 L Nye # (Auto) 600 Eos # (Auto) 0 Baso # (Auto) 0 RBC Morphology Hypochromasia Anisocytosis PT INR APTT Sodium 134 L Potassium 3.9 Chloride 96 L Carbon Dioxide 35 H BUN 24 H Creatinine 0.58 L Estimated GFR > 60 BUN/Creatinine Ratio 41.4 H Glucose 122 H Lactate Calcium 8.8 Total Bilirubin 1.0 AST 56 ALT 69 H Alkaline Phosphatase 222 H NT-Pro-B Natriuret Pep 3000 H Total Protein 7.6 Albumin 3.4 L Globulin 4.2 H Albumin/Globulin Ratio 0.8 L Lipase 1175 H Procalcitonin Urine Color Urine Appearance Urine pH Ur Specific [place] Urine Protein Urine Glucose (UA) Urine Ketones Urine Occult Blood Urine Nitrate Urine Bilirubin Urine Urobilinogen Ur Leukocyte Esterase Urine RBC Urine WBC Amorphous Sediment Urine Bacteria Chlamy pneumoniae PCR Adenovirus (PCR) B. pertussis DNA (PCR) B.parapertussis DNA PCR Coronavirus OC43 (PCR) Coronavirus HKU1 (PCR) Coronavirus 229E (PCR) SARS-CoV-2 (PCR) Coronavirus NL63 (PCR) Human Metapneumovir PCR Influenza Type A (PCR) Influenza Type B (PCR) M. pneumoniae (PCR) Parainfluenza 1 (PCR) Parainfluenza 2 (PCR) Parainfluenza 3 (PCR) Parainfluenza 4 (PCR) RSV (PCR) Entero/Rhino (PCR) 08/29/22 08/29/22 08/29/22 15:00 15:00 15:00 WBC RBC Hgb Hct MCV MCH MCHC RDW Plt Count Neut % (Auto) Lymph % (Auto) [place]ye % (Auto) Eos % (Auto) Baso % (Auto) Neut # (Auto) Lymph # (Auto) Nye # (Auto) Eos # (Auto) Baso # (Auto) RBC Morphology Hypochromasia Anisocytosis PT 19.7 H INR 1.7 H APTT Sodium Potassium Chloride Carbon Dioxide BUN Creatinine Estimated GFR BUN/Creatinine Ratio Glucose Lactate 1.5 Calcium Total Bilirubin AST ALT Alkaline Phosphatase NT-Pro-B Natriuret Pep Total Protein Albumin Globulin Albumin/Globulin Ratio Lipase Procalcitonin 0.33 Urine Color Urine Appearance Urine pH Ur Specific [place] Urine Protein Urine Glucose (UA) Urine Ketones Urine Occult Blood Urine Nitrate Urine Bilirubin Urine Urobilinogen Ur Leukocyte Esterase Urine RBC Urine WBC Amorphous Sediment Urine Bacteria Chlamy pneumoniae PCR Adenovirus (PCR) B. pertussis DNA (PCR) B.parapertussis DNA PCR Coronavirus OC43 (PCR) Coronavirus HKU1 (PCR) Coronavirus 229E (PCR) SARS-CoV-2 (PCR) Coronavirus NL63 (PCR) Human Metapneumovir PCR Influenza Type A (PCR) Influenza Type B (PCR) M. pneumoniae (PCR) Parainfluenza 1 (PCR) Parainfluenza 2 (PCR) Parainfluenza 3 (PCR) Parainfluenza 4 (PCR) RSV (PCR) Entero/Rhino (PCR) 08/29/22 08/29/22 08/29/22 15:00 16:22 17:45 WBC RBC Hgb Hct MCV MCH MCHC RDW Plt Count Neut % (Auto) Lymph % (Auto) [place]ye % (Auto) Eos % (Auto) Baso % (Auto) Neut # (Auto) Lymph # (Auto) Nye # (Auto) Eos # (Auto) Baso # (Auto) RBC Morphology Hypochromasia Anisocytosis PT INR APTT 33 Sodium Potassium Chloride Carbon Dioxide BUN Creatinine Estimated GFR BUN/Creatinine Ratio Glucose Lactate Calcium Total Bilirubin AST ALT Alkaline Phosphatase NT-Pro-B Natriuret Pep Total Protein Albumin Globulin Albumin/Globulin Ratio Lipase Procalcitonin Urine Color Yellow Urine Appearance Cloudy Urine pH 8.0 Ur Specific [place] 1.015 Urine Protein 2+ H Urine Glucose (UA) Negative Urine Ketones Negative Urine Occult Blood 2+ H Urine Nitrate Positive H Urine Bilirubin Negative Urine Urobilinogen 1.0 Ur Leukocyte Esterase 3+ H Urine RBC 5-10/hpf H Urine WBC 5-10/hpf H Amorphous Sediment 2+ Urine Bacteria Moderate (10-30) H Chlamy pneumoniae PCR Not detected Adenovirus (PCR) Not detected B. pertussis DNA (PCR) Not detected B.parapertussis DNA PCR Not detected Coronavirus OC43 (PCR) Not detected Coronavirus HKU1 (PCR) Not detected Coronavirus 229E (PCR) Not detected SARS-CoV-2 (PCR) Not detected Coronavirus NL63 (PCR) Detected H Human Metapneumovir PCR Not detected Influenza Type A (PCR) Not detected Influenza Type B (PCR) Not detected M. pneumoniae (PCR) Not detected Parainfluenza 1 (PCR) Not detected Parainfluenza 2 (PCR) Not detected Parainfluenza 3 (PCR) Not detected Parainfluenza 4 (PCR) Not detected RSV (PCR) Not detected Entero/Rhino (PCR) Not detected 08/30/22 08/30/22 05:22 05:22 WBC 5.3 RBC 3.65 L Hgb 9.5 L Hct 29.6 L MCV 81.1 MCH 26.1 MCHC 32.2 RDW 20.2 H Plt Count 322 Neut % (Auto) 75.1 H Lymph % (Auto) 11.8 L [place]ye % (Auto) 11.5 Eos % (Auto) 0.7 L Baso % (Auto) 0.9 Neut # (Auto) 4000 Lymph # (Auto) 600 L Nye # (Auto) 600 Eos # (Auto) 0 Baso # (Auto) 0 RBC Morphology See below Hypochromasia 1+ H Anisocytosis 3+ H PT INR APTT Sodium 135 L Potassium 3.3 L Chloride 96 L Carbon Dioxide 31 BUN 19 Creatinine 0.58 L Estimated GFR > 60 BUN/Creatinine Ratio 32.8 H Glucose 77 L Lactate Calcium 8.1 L Total Bilirubin AST ALT Alkaline Phosphatase NT-Pro-B Natriuret Pep Total Protein Albumin Globulin Albumin/Globulin Ratio Lipase Procalcitonin Urine Color Urine Appearance Urine pH Ur Specific [place] Urine Protein Urine Glucose (UA) Urine Ketones Urine Occult Blood Urine Nitrate Urine Bilirubin Urine Urobilinogen Ur Leukocyte Esterase Urine RBC Urine WBC Amorphous Sediment Urine Bacteria Chlamy pneumoniae PCR Adenovirus (PCR) B. pertussis DNA (PCR) B.parapertussis DNA PCR Coronavirus OC43 (PCR) Coronavirus HKU1 (PCR) Coronavirus 229E (PCR) SARS-CoV-2 (PCR) Coronavirus NL63 (PCR) Human Metapneumovir PCR Influenza Type A (PCR) Influenza Type B (PCR) M. pneumoniae (PCR) Parainfluenza 1 (PCR) Parainfluenza 2 (PCR) Parainfluenza 3 (PCR) Parainfluenza 4 (PCR) RSV (PCR) Entero/Rhino (PCR) [facility] Medical History 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 Multidrug resistant Pseudomonas UTI secondary to chronic suprapubic catheter -repeat UA still positive, urine culture with GNB >100k -continue zosyn, also sensitive to imipenem on previous sensitivities 2. Shigella with diarrhea -presumed positive off preliminary reports sent from other hospital -plan for 3 days oral azithromycin 500mg daily -follow up final stool studies 3. Sacral decubitus ulcer stage IV -with erythema concern for infection -swab done in ED, f/u cultures -follow up cultures -in addition to above antibiotics for now will treat with vancomycin -wound care consulted 4. Coronovirus (not covid) in setting of COPD without exacerbation -currently with a mild cough -ordered PRN nebs, and already on azithromycin for above infection -if worsening will start steroids 5. Questionable cholecystitis -on admission without abdominal pain, ruq tenderness, no leukocytosis -continue antibiotics as above 6. s/p PEG secondary to history of parotid gland cancer -dietary consult 7. History of prostate cancer -s/p suprapubic catheter 8. Atrial fibrillation -continue eliquis as no urgent need for surgery 10. NIMA -not on cpap 11. Conjunctivitis -R>L exudate from eyes with redness -start daily abx/steroid eye drops Dispo: Pending wound care needs and urine culture results. Quality VTE Deep Vein Thrombosis/Pulmonary Embolism Present on Admission: No
--- NOTE | 2022-08-30 08:34 | PC.NURSE ---
Addendum entered by Fariha Campoverde R.N. 08/30/22 12:38: Patient eating bites at lunch, had three big bites of yogurt and drank some orange juice. He does not seem interested in eating much, patient has a peg tube that is not being used at this time. is unable to come in and visit today as she is not feeling well. Will call and get more of an update on patient this afternoon. Addendum entered by Fariha Campoverde R.N. 08/30/22 10:58: Patient now has eye drops for conjunctivitis for his eyes per . He tolerated these both well. Original Note: Assess- Patient is alert but disoriented x2. He keeps asking if he is waking up from a dream or if this is real. Reoriented patient to let him know that he is in the hospital and that his will be here a bit later. Patient has multiple wounds on his buttocks and thighs. One of the skin decub ulcers on his buttocks tunnels and is down to possible bone. He has a dressing applied with 4x4 and allevyn. He has other smaller ulcers on his back side, please see photos under notes. aware of patients skin issues, he will most likely order a wound consult for patient, later today. He denies pain, he is parapelgic and has a superpubic catheter in place. He is resting comfortably. He took his po medication with a sip of water and his iv vanco is infusing now.
[2022-08-30 08:48] LABS: Magnesium 2.2 mg/dL (1.6-2.3)
[2022-08-30] MEDS: POTASSIUM CHLORIDE IN WATER 10 MEQ/100 ML PIGGYBACK 100 MEQ IV ×4 (09:35→14:04)
[2022-08-30] MEDS: NEO/POLYMIX B/DEX OPHTH SUSP 1 DROPS EYE-BOTH ×3 (09:35→20:38)
--- NOTE | 2022-08-30 10:41 | DIET.CONS2 ---
Dietary Inpatient Consultation Note Admission Date: 08/29/2022 20:15 RD consulted for pt with chronic PEG tube. Per pt tolerates PO intake and does not use PEG. Pt consumed 0% breakfast, if POs remain poor, consideration to be made on using PEG to support nutrition status for wound healing. Diet: 08/29/22 Breakfast Heart Healthy Diet Diet Modifications: Nutrition Percent Meal Consumed 0% 08/30/22 09:24 Electronically Signed by: Sandra Gates 08/30/22 10:41 Clinical Dietitian [address] [id number]
[2022-08-30 12:00] VITALS: BP 146/87; PULSE 62; RESP 18; TEMP 36.4; O2SAT 95
[2022-08-30] MEDS: ENALAPRIL 5 MG TABLET PO ×2 (14:04→20:36)
[2022-08-30 18:00] VITALS: BP 155/85; PULSE 65; RESP 16; TEMP 36.7; O2SAT 95
[2022-08-30] MEDS: AZITHROMYCIN 250 MG TABLET 500 MG PO (20:04)
[2022-08-30 20:36] VITALS: BP 130/65; PULSE 68
[2022-08-30 23:40] VITALS: BP 149/68; PULSE 64; RESP 17; O2SAT 95
[2022-08-31] VITALS (7 sets, daily range): BP systolic 139–170; BP diastolic 57–98; PULSE 62–95; RESP 16–20; TEMP 35.9–36.7; O2SAT 93–96
[2022-08-31] MEDS: VANCOMYCIN 1,250 MG/250 ML PIGGYBACK 250 MG IV (03:24)
[2022-08-31 06:28] LABS: BUN Creatinine Ratio 23.3 (6-22); Blood Urea Nitrogen 14 mg/dL (9-20); Calcium 8.1 mg/dL (8.4-10.2); Carbon Dioxide 29 mmol/L (22-32); Chloride 99 mmol/L (98-107); Estimated Glomerular Filt Rate > 60 mL/min (>60); Glucose 76 mg/dL (80-110); HEMOLYSIS < 15 (0-50); Potassium 3.5 mmol/L (3.4-5.1); Sodium 135 mmol/L (137-145)
--- NOTE | 2022-08-31 07:59 | PM.PN.1 ---
Subjective Subjective Interval history: Dietary spoke with who said PEG is being used for supplemental feeds so they will start this today. Patient's eyes appear better today. He has no complaints other than some nausea. Exam Vital Signs (past 8 hours): - 08/31/22 02:00 08/31/22 05:47 Temperature 98.1 F Pulse Rate 62 Respiratory Rate 18 Blood Pressure 149/57 H 160/92 H Pulse Oximetry 95 Oxygen Delivery Method Room Air Oxygen Flow Rate 0 Narrative Exam Narrative: GEN: appears older than stated age, otherwise no acute distress HEENT: moist mucous membranes, PERRL, bilateral conjunctivitis with drainage R>L NECK: trachea midline, no JVD PULM: coarse breath sounds bilaterally, no wheezes, rhonchi CV: irregular, no murmurs ABD: soft, hernia noted, left lower quadrant with mild tenderness, suprapubic catheter and peg tube noted with incision site clean dry and without erythema EXT: warm and well perfused, 1+ edema BACK: erythematous back, one ucler stage IV, another stage III, no purulence noted NEURO: awake, alert, oriented, no focal deficits Objective Labs 08/30/22 05:22 08/31/22 05:55 Labs: Laboratory Results - last 24 hr 08/30/22 08/31/22 05:22 05:55 Sodium 135 L Potassium 3.5 Chloride 99 Carbon Dioxide 29 BUN 14 Creatinine 0.60 L Estimated GFR > 60 BUN/Creatinine Ratio 23.3 H Glucose 76 L Calcium 8.1 L Magnesium 2.2 PFSH Medical History 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 Multidrug resistant Pseudomonas UTI secondary to chronic suprapubic catheter -repeat UA still positive, urine culture with GNB >100k -continue zosyn for 7 days total 2. Shigella with diarrhea -presumed positive off preliminary reports sent from other hospital -plan for 3 days oral azithromycin 500mg daily -follow up final stool studies 3. Sacral decubitus ulcer stage IV -with erythema concern for infection -swab done in ED, cultures with multiple mixed GNR's -treated with vanc but will stop as wound culture only growing GNR's -wound care consulted -continue zosyn as above 4. Coronovirus (not covid) in setting of COPD without exacerbation -currently with a mild cough -ordered PRN nebs, and already on azithromycin for above infection 5. Questionable cholecystitis -on admission without abdominal pain, ruq tenderness, no leukocytosis -continue antibiotics as above 6. s/p PEG secondary to history of parotid gland cancer -dietary consulted and will start tube feeds 7. History of prostate cancer -s/p suprapubic catheter 8. Atrial fibrillation -continue eliquis as no urgent need for surgery 10. NIMA -not on cpap 11. Conjunctivitis -R>L exudate from eyes with redness -start daily abx/steroid eye drops Dispo: Pending wound care needs and full course of 7 days of zosyn which may be finished at SNF. Quality VTE Deep Vein Thrombosis/Pulmonary Embolism Present on Admission: No
[2022-08-31] MEDS: PIPERACILLIN/TAZO 3.375 GM in SODIUM CHLORIDE 0.9% 100 ML IV ×3 (10:00→22:34)
[2022-08-31] MEDS: ENALAPRIL 5 MG TABLET PO ×2 (10:01→21:47)
[2022-08-31] MEDS: APIXABAN 5 MG TABLET 2.5 MG PO ×2 (10:01→21:47)
[2022-08-31] MEDS: NEO/POLYMIX B/DEX OPHTH SUSP 1 DROPS EYE-BOTH ×4 (10:12→22:34)
--- NOTE | 2022-08-31 11:09 | DIET.CONS ---
Dietary Consultation Note Admission Date: 08/29/2022 20:15 Assessment: 81 y/o M admitted with decubitus ulcers and chronic diarrhea. Found to have multidrug resistant pseudomonas UTI, shigella with diarrhea, sacral decubitus ulcer stagle IV, coronavirus (not covid), and possible cholecystitis. PMH includes PEG secondary to h/o parotid gland cancer, h/o prostate cancer, afib, NIMA, HTN and COPD. Spoke with his , Starr, over the phone. She has not been able to come into see Lebron due to her own health with a fever 105F. States she usually gives him 10 cans of [employer] FiberSource HN per day, 3000 kcals, 135g PRO daily. States prior to this was using Jevity 1.2 without issue. Unclear why he was on new formula recently, but states it could be due to the diarrhea. Reports severe diarrhea which would wet large portion of the bed overnight. Poor PO since admission, which is baseline per . Will provide nutrition recs for PEG use. Ht: 195.58 cm Wt: 102.058 kg BMI: 26.6 Last BM: 08/30/22 (08/30/22 18:53) MNA: 9 Mac Score: 13 Diet: 08/29/22 Breakfast Heart Healthy Diet Diet Modifications: Nutrition Percent Meal Consumed 10% 08/30/22 17:52 Percent Meal Consumed 0% 08/30/22 09:24 Labs: RBC 3.65 X10^6/uL (4.5-5.9) L 08/30/22 05:22 Hgb 9.5 g/dL (13.5-17.5) L 08/30/22 05:22 Hct 29.6 % (41-53) L 08/30/22 05:22 Creatinine 0.60 mg/dL (0.66-1.25) L 08/31/22 05:55 Lactate 1.5 mmol/L (0.7-2.1) 08/29/22 15:00 NT-Pro-B Natriuret Pep 3000 pg/mL (<450) H 08/29/22 15:00 Nutrition Diagnosis: Inadequate energy intake r/t inability to meet nutrition needs via PO aeb PEG placement and discussion with on nutrition regimen Interventions: 1. Restart PEG use. Start continuous feed of Jevity 1.2 at 20 ml/hr. Increase by 20ml/hr q 4 hours as tolerated until at goal of 90ml/hr. 2. Flushes 250ml q 4hr providing additional 1500ml fluids per day 3. This provides 2592kcals (91-102% of needs), 120g PRO (78-98% PRO needs), and 1743 feed water (total of 3243ml with flushes) 4. Keep HOB elevated above 30 degrees at all time while feeding EER: 6895-0226 kcal (25-28kcal/kg per BMI); 122-153g PRO (1.2-1.5g/kg per wound healing) Monitoring/Evaluations: RDN f/u 2-3 days; monitoring feeding tolerance, weight, and PO Electronically Signed by: Lyudmila Ellison 08/31/22 11:09 Clinical Dietitian [address] [id number]
[2022-08-31] MEDS: VANCOMYCIN 1,250 MG/250 ML PIGGYBACK 166.667 MG IV (11:26)
[2022-08-31] MEDS: ACETAMINOPHEN 325 MG TABLET 650 MG PO (11:27)
[2022-08-31] MEDS: ONDANSETRON 4 MG/2 ML INJ IV (11:27)
--- NOTE | 2022-08-31 13:45 | PT-IP ANOTE ---
Pt refusesx2. States concerned about , discussed that would be beneficial for patient to at least try to sit edge of bed, but pt refused again.
--- NOTE | 2022-08-31 13:47 | OT.IPNOTE ---
Attempted to see pt for OT eval and pt refused as not feeling well and too tired to be seen today.
--- NOTE | 2022-08-31 15:30 | CM.DANOTE ---
Initial DCP Assessment Note Pt is an 81 yo male, resident of [place], arrives via EMS r/t concern of worsening ulcer on his back, possible bone exposure and chronic diarrhea for months Patient admitted (INPT as of 08.30.22) and found to have Multidrug resistant Pseudomonas UTI secondary to chronic suprapubic catheter, Shigella with diarrhea, Sacral decubitus ulcer stage IV, Coronovirus (not covid) in setting of COPD without exacerbation, Questionable cholecystitis, Conjunctivitis PCP: Dr Goldman/[facility] Payer: MCR/MARIE Met w/patient briefly to introduce self and role. Patient is severely [place] and does not see well, patient also w/dementia, pleasant, calm and cooperative with care. Placed call to patient's spouse Ashley who is ill at home (possibly strep), spouse is very pleasant and appreciative; Patient receives 176 hrs in [employer] cg hours monthly. Spouse has been patient's sole caregiver for a year and half because there have been no caregivers available. [facility] Martina Austen P [phone] has just secured 3 caregivers through [facility] Patient requires almost total care, is w/c bound; spouse waiting on a Rx from PCP for a tilt in space wheelchair. Patient's knees do not bend well enough to get into a regular wheelchair. Patient must transport via BLS everywhere he goes per spouse. Spouse reports patient has had persistent diarrhea since January which has made it very difficult to keep his backside clean and ulcer well bandaged. Patient has an RN from [facility] coming three times week to assist w/wound care See next DCP Note- cont EMILY Hodges Discharge Planning/Care Management Discharge Assessment Start: 08/31/22 15:24 Freq: Status: Active Protocol: Document 08/31/22 15:24 STEW (Rec: 08/31/22 15:30 STEW [id number]) Discharge Planning Assessment Assigned Grain Processor EMILY Nation DPOA/Assigned Designee [facility] Contact Information [phone] Advance Directives? No History Provided By Significant Other,Medical Record Prior Living Arrangements House Household Members spouse Type of transporation used prior to Relies on Others admit Independent with ADL's No Is patient alert and oriented? No Comment Total care Name of Agency TK/[facility] Comment 176 hrs month Patient/Family Preference Half-Way Facility Barriers to Discharge Yes Discharge Plan Half-Way Facility Transportation Arrangement Likely BLS Referrals Initiated Half-Way Additional Comment [facility] Medicare Choice List Provided No SNF/HH Preference Spouse Ashley salas [facility], no back up options provided at this time Has Agency SNF been contacted Yes Comment Awaiting follow up from November at [facility]
[2022-08-31] MEDS: SODIUM CHLORIDE 0.9% 1,000 ML 125 ML IV (16:03)
--- NOTE | 2022-08-31 16:11 | CM.DPNOTE ---
Addendum entered by Lena Matt, EMILY 08/31/22 16:16: ADD: Patient has val lift, hospital bed w/shifting air mattress and trapeze at home JW Original Note: DCP Note Cont In addition, patient was diagnosed with stage 4 salivary gland cancer and required radiation and extensive surgery to remove cancer that was wrapped around the right facial nerve sheath which had to be removed leaving the right side of his face completely limp. Right ear rebuilt but not functional. Patient not able to tolerate po so peg tube was placed after this surgery Peg tube feedings managed by spouse, Jevity 1.2 provided by [facility]. Patient eats minimally by mouth. Spouse describes food dripping out of peg tube sight during the last few months which has appears to have irritated the skin surrounding peg- all possibly r/t infection Patient with hx of respite stay at [facility] and [facility] now [facility]. Spouse hopeful patient can discharge to [facility] before his return home. Spouse makes clear patient will return home to her care eventually, ideally when infections are better under control and wound is starting to heal properly Referral sent to November at [facility] for review Meanwhile, placed call to Dr Goldman's office, never got through, on hold. Then to TK Boyce who is gone through September 03. Then to lead TIMMY Hernadez P [phone], had to LM asking if this POLICY ANALYST can help in securing Rx for tilt in space w/c? Inevitably spoke with Litzy at [facility], who orders DME for MARIE recipients who told his POLICY ANALYST that spouse would be better off taking a Rx to the [facility] store front in [place], because the tilt in space is so expensive, it's likely MARIE will deny but MCR may help in cost. TK WARNER would need to request an Exception to the Rule (ETR) (more money) to order this w/c which, realistically, may not ever happen (?) Plan: Discharge to SNF is likely, first choice: [facility]. [facility] needed. vs home w/spouse, TK caregivers, Sig HH RN CM team following closely for coordination of plan; patient medically fragile with numerous care needs JW
[2022-08-31] MEDS: AZITHROMYCIN 250 MG TABLET 500 MG PO (19:52)
[2022-09-01] VITALS (7 sets, daily range): BP systolic 134–172; BP diastolic 69–96; PULSE 62–97; RESP 17–40; TEMP 35.7–36.4; O2SAT 90–98
--- NOTE | 2022-09-01 00:10 | PC.NURSE ---
Patient oriented only to self and birthdate. Breath sounds coarse with expiratory rhonchi; RA sat 96%. HRR. Denies nausea. Currently with tube feed per PEG which was started at 20cc/h and increased at 2330 to 40cc/h as residual was only 5cc. Is reddened around PEG insertion site so gauze dressing placed after cleansing. BT present and abdomen is soft. Is incontinent of loose stools. Stage 3 and 4 pressure ulcers to sacrum and right lower buttock. Allevyn dressing to sacrum changed as soiled with stool. Suprapubic catheter is patent; urine is clear, light yellow. Back, buttocks and posterior thighs are erythemic with abrasions/bruising and peeling skin. Is being repositioned q2h as is paraplegic and unable to move himself. Not out of bed on this shift but is reportedly transferred with Mehnaz. Denies pain. 1+ edema noted in bilateral feet. On isolation due to conjunctivitis, shigella and staph aureus present in wounds. Fall risk score is high and bed alarm is activated.
[2022-09-01] MEDS: SODIUM CHLORIDE 0.9% 1,000 ML 125 ML IV (01:48)
[2022-09-01] MEDS: ACETAMINOPHEN 325 MG TABLET 650 MG PO (04:08)
[2022-09-01] MEDS: PIPERACILLIN/TAZO 3.375 GM in SODIUM CHLORIDE 0.9% 100 ML IV ×3 (06:23→22:54)
[2022-09-01 06:28] LABS: Add Manual Diff / Slide Review NO; Basophils Absolute Auto 100 /uL (0-100); Basophils Percent Auto 0.5 % (0-2); Eosinophils Absolute Auto 0 /uL (0-450); Eosinophils Percent Auto 0.2 % (2-4); Hematocrit 30.7 % (41-53); Hemoglobin 9.8 g/dL (13.5-17.5); Lymphocytes Absolute Auto 400 /uL (1100-4500); Lymphocytes Percent Auto 4.8 % (25-40); Mean Corpuscular HGB Conc 31.9 % (30-36); Mean Corpuscular Hemoglobin 25.7 PG (26-34); Mean Corpuscular Volume 80.5 fL (80-100); Monocytes Absolute Auto 800 /uL (0-900); Monocytes Percent Auto 8.7 % (3-14); Neutrophils Absolute Auto 8100 /uL (1500-7000); Neutrophils Percent Auto 85.8 % (50-75); Platelet Count 337 X10^3/uL (150-400); Red Blood Cell Count 3.82 X10^6/uL (4.5-5.9); White Blood Cell Count 9.4 X10^3/uL (4.5-11.0)
[2022-09-01 06:34] LABS: BUN Creatinine Ratio 22.4 (6-22); Blood Urea Nitrogen 13 mg/dL (9-20); Calcium 7.8 mg/dL (8.4-10.2); Carbon Dioxide 27 mmol/L (22-32); Chloride 102 mmol/L (98-107); Estimated Glomerular Filt Rate > 60 mL/min (>60); Glucose 180 mg/dL (80-110); HEMOLYSIS < 15 (0-50); Sodium 136 mmol/L (137-145)
--- NOTE | 2022-09-01 08:12 | PM.PN.1 ---
Subjective Subjective Interval history: Mr. Reyna is an 81M with PMH atrial fibrillation, HTN, history of parotid gland cancer s/p long-term PEG tube, prostate cancer s/p terminal operations supervisor suprapubic catheter, COPD, NIMA, dementia who presented to the hospital with decubitus ulcers. He apparently has had chronic diarrhea for months. He presented to [facility] recently with fatigue in Jul 2022. At that time was found to have pseudomonas UTI. He also had gallbladder wall changes, but thought not to have acute cholecystitis. He has apparently had ongoing symptoms. He had stool culture recently sent, that is preliminary but possibly concerning for Shigella. He has had a repeat UA done recently that again grew back pseudomonas UTI which as resistant to multiple drugs but sensitive to zosyn and imipenem. Apparently he was brought in after recommendation from home health for worsening sacral ulcers. He also has a cough, no shortness of breath, and is active vaping. He denied any abdominal pain, nausea, vomiting on presentation. Today the main complaint is persistent diarrhea overnight as well as loneliness wanting somebody to be in the room at all times. Patient is agitated about this. Exam Vital Signs (past 8 hours): - 09/01/22 06:00 Temperature 97.1 F L Pulse Rate 80 Respiratory Rate 18 Blood Pressure 144/77 H Pulse Oximetry 93 Oxygen Flow Rate 0 Oxygen Delivery Method Room Air Oxygen Flow Rate 0 Narrative Exam Narrative: GEN: appears older than stated age, otherwise no acute distress HEENT: moist mucous membranes, PERRL, bilateral conjunctivitis with drainage R>L, facial drooping right side secondary to the parotid surgery previously NECK: trachea midline, no JVD, some disfiguration of right face/neck area from previous surgery for parotid cancer PULM: coarse breath sounds bilaterally, no wheezes, rhonchi CV: irregular, no murmurs ABD: soft, hernia noted, left lower quadrant with mild tenderness, suprapubic catheter and peg tube noted with incision site clean dry and without erythema EXT: warm and well perfused, 1+ edema BACK: erythematous back, one ucler stage IV, another stage III, no purulence noted NEURO: awake, alert, oriented, no focal deficits Objective Labs 09/01/22 05:30 09/01/22 05:30 Labs: Laboratory Results - last 24 hr 09/01/22 09/01/22 05:30 05:30 WBC 9.4 RBC 3.82 L Hgb 9.8 L Hct 30.7 L MCV 80.5 MCH 25.7 L MCHC 31.9 RDW 20.0 H Plt Count 337 Neut % (Auto) 85.8 H Lymph % (Auto) 4.8 L [place] % (Auto) 8.7 Eos % (Auto) 0.2 L Baso % (Auto) 0.5 Neut # (Auto) 8100 H Lymph # (Auto) 400 L [place] # (Auto) 800 Eos # (Auto) 0 Baso # (Auto) 100 Sodium 136 L Potassium 3.0 L Chloride 102 Carbon Dioxide 27 BUN 13 Creatinine 0.58 L Estimated GFR > 60 BUN/Creatinine Ratio 22.4 H Glucose 180 H D Calcium 7.8 L PFSH Medical History Atrial fibrillation Bilateral foot-drop 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 Multidrug resistant Pseudomonas UTI secondary to chronic suprapubic catheter -repeat UA still positive, urine culture with GNB >100k -continue zosyn for 7 days total 2. Shigella with diarrhea -presumed positive off preliminary reports sent from other hospital -plan for 3 days oral azithromycin 500mg daily - completed -follow up final stool studies - ordered 3. Sacral decubitus ulcer stage IV -with erythema concern for infection -swab done in ED, cultures with multiple mixed GNR's -treated with vanc but will stop as wound culture only growing GNR's -wound care consulted -continue zosyn as above -repeat wound culture negative 4. Coronovirus (not covid) in setting of COPD without exacerbation -currently with a mild cough -ordered PRN nebs, and already on azithromycin for above infection -azithromycin completed 5. Questionable cholecystitis -on admission without abdominal pain, ruq tenderness, no leukocytosis -continue antibiotics as above -Zosyn medication will essentially cover 6. s/p PEG secondary to history of parotid gland cancer -dietary consulted and will start tube feeds 7. History of prostate cancer -s/p suprapubic catheter 8. Atrial fibrillation -continue eliquis as no urgent need for surgery 10. NIMA -not on cpap 11. Conjunctivitis -R>L exudate from eyes with redness -daily abx/steroid eye drops -ongoing 12.Dementia with Agitation. Initiated Haldol 0.5 mg IV as needed with maximum dose per 24 hours 3 mg 13. Persistent diarrhea. We will treat with Imodium. Repeat stool culture also been ordered. Follow labs and clinically. Dispo: Pending wound care needs and full course of 7 days of zosyn which may be finished at SNF. Quality VTE Deep Vein Thrombosis/Pulmonary Embolism Present on Admission: No
[2022-09-01] MEDS: INSULIN LISPRO 100 UNIT/ML 3ML VIAL SUBCUT ×4 (08:27→20:53)
[2022-09-01] MEDS: LOPERAMIDE 2 MG CAPSULE 4 MG PO (08:30)
[2022-09-01] MEDS: NEO/POLYMIX B/DEX OPHTH SUSP 1 DROPS EYE-BOTH ×4 (08:31→20:44)
[2022-09-01] MEDS: APIXABAN 5 MG TABLET 2.5 MG PO ×2 (08:31→20:43)
[2022-09-01] MEDS: ENALAPRIL 5 MG TABLET PO ×2 (08:31→20:44)
--- NOTE | 2022-09-01 08:51 | PT-OP ANOTE ---
Spoke with nursing, pt having a very difficult morning, and having episodes of explosive diarrhea. Nursing requests hold until PM or tomorrow, as nsg advised no PT in PM.
[2022-09-01] MEDS: HALOPERIDOL 5 MG/ML VIAL IV ×3 (09:30→23:24)
[2022-09-01] MEDS: LOPERAMIDE 2 MG CAPSULE PO (12:40)
[2022-09-01] MEDS: POTASSIUM CHLORIDE 20 MEQ/15 ML UDC 40 MEQ TUBE (12:40)
[2022-09-01] MEDS: SODIUM CHLORIDE 0.9% 500 ML 21 ML IV ×2 (14:04→21:42)
--- NOTE | 2022-09-01 16:07 | CM.DPNOTE ---
DCP Note Spoke with anjali who is covering admissions for [facility] this weekend; they are unsure they can accept patient but referral will be further reviewed Saturday by November Need back up SNF choices from spouse and PASRR still needed if patient discharges to SNF JW
--- NOTE | 2022-09-01 16:46 | PC.NURSE ---
Addendum entered by Indigo Daley R.N. 09/01/22 19:47: Rt gave neb and did aggressive pulmonary toilet suction a lot of sputum for pt to get it out of his airways. He was much less anxious after that and sats on 3L NC returned to 93%. He is currently sleeping. Original Note: Resp: Pt reporting sob today. Dr. York made aware. RA sats are 91-92. Is working harder to breath today, using accessory muscles at times. IVF stopped per MD order. Does have more course rhonchi this am. Pt reporting sob this afternoon, RA sats now are 83-84%. Pt is a non smoker. O2 applied at 3L NC, Sat is 88-90%. Pt does use nebs at home. RT called to eval pt and give him a neb. Dr. York made aware of low O2 sats and O2 being applied. Will see if emery helps.
[2022-09-01] MEDS: ALBUTEROL/IPRATROPIUM 3 ML AMPUL INH ×2 (17:05→20:30)
--- NOTE | 2022-09-01 20:01 | DI.RAD.S_ITS ---
PROCEDURE: XR CHEST 1V INDICATIONS: sob TECHNIQUE: One view of the chest was acquired. COMPARISON: None. FINDINGS: Surgical changes and devices: Implanted soft tissue cardiac monitoring device to the left of midline overlying the lower left heart. Lungs and pleura: Lungs are abnormal bilaterally with severe alveolar infiltration on the right and moderately severe such airspace disease at the left lower lobe.. No pleural effusions or pneumothorax. Mediastinum: Mediastinal contours appear normal. Heart size is normal. Bones and chest wall: No suspicious bony lesions. Overlying soft tissues appear unremarkable. IMPRESSION: Bilateral pneumonia, severe on the right and moderately severe on the left. Dictated by: Marlon Adams M.D. on 09/01/2022 at 20:16 Approved by: Marlon Adams M.D. on 09/01/2022 at 20:17
[2022-09-01] MEDS: FUROSEMIDE 40 MG/4 ML VIAL IV (20:27)
[2022-09-01 20:38] LABS: Add Manual Diff / Slide Review NO; Basophils Absolute Auto 0 /uL (0-100); Basophils Percent Auto 0.2 % (0-2); Eosinophils Absolute Auto 0 /uL (0-450); Eosinophils Percent Auto 0.3 % (2-4); Hematocrit 31.6 % (41-53); Lymphocytes Absolute Auto 800 /uL (1100-4500); Lymphocytes Percent Auto 6.4 % (25-40); Mean Corpuscular HGB Conc 31.6 % (30-36); Mean Corpuscular Hemoglobin 25.6 PG (26-34); Mean Corpuscular Volume 81.1 fL (80-100); Monocytes Absolute Auto 900 /uL (0-900); Monocytes Percent Auto 7.7 % (3-14); Neutrophils Absolute Auto 10000 /uL (1500-7000); Neutrophils Percent Auto 85.4 % (50-75); Platelet Count 392 X10^3/uL (150-400); Red Blood Cell Count 3.89 X10^6/uL (4.5-5.9); White Blood Cell Count 11.8 X10^3/uL (4.5-11.0)
[2022-09-01 20:48] LABS: Alanine Aminotransferase 30 IU/L (<50); Albumin 3.3 g/dL (3.5-5.0); Albumin Globulin Ratio 0.8 (1.0-2.8); Alkaline Phosphatase 136 U/L (38-126); Aspartate Aminotransferase 21 IU/L (17-59); BUN Creatinine Ratio 21.9 (6-22); Bilirubin Total 1.1 mg/dL (0.2-1.3); Blood Urea Nitrogen 14 mg/dL (9-20); Calcium 8.1 mg/dL (8.4-10.2); Carbon Dioxide 28 mmol/L (22-32); Chloride 99 mmol/L (98-107); Estimated Glomerular Filt Rate > 60 mL/min (>60); Globulin 4.1 g/dL (1.7-4.1); Glucose 182 mg/dL (80-110); HEMOLYSIS < 15 (0-50); Lactate (Lactic Acid) 2.3 mmol/L (0.7-2.1); Potassium 3.7 mmol/L (3.4-5.1); Sodium 135 mmol/L (137-145); Total Protein 7.4 g/dL (6.3-8.2)
[2022-09-01 20:49] LABS: Fractionated Inspired Oxygen 36; HCO3 ABG 25 mmol/L (23-27); Oxygen Saturation ABG 93 % (95-100); PCO2 ABG 37.4 mmHg (35-45); PO2 ABG 64 mmHg (80-100); TCO2 ABG 26 mmol/L (23-27); pH ABG 7.42 (7.35-7.45)
[2022-09-01 21:00] LABS: NT-proBNP (BNP-Adult 18+) 9170 pg/mL (<450); Troponin I 0.048 ng/mL (0.01-0.034)
[2022-09-01 22:31] LABS: Reflexed Lactate in 2 Hours Y
--- NOTE | 2022-09-01 22:41 | PC.NURSE ---
Addendum entered by Lesli Marino R.N. 09/02/22 06:49: Patient awake and begging for water. Discussed with Dr. Krishnan since he was questioning aspiration earlier. MD stated he would review this morning's xray before he makes a decision regarding po intake. Speech eval has been ordered. Addendum entered by Lesli Marino R.N. 09/02/22 00:18: Awake and calling out for help. Frequent moist sounding cough with difficulty clearing secretions. RT here and gave neb Rx after which patient was repositioned and Haldol administered for his anxiety and is now asleep. Original Note: Patient seen at beginning of shift and was having frequent moist, loose cough and unable to clear secretions. Unable to suction anything out with use of Yankour. On oxygen at 3L/min with sat of 97% but stating he felt SOB. Very anxious. Tachypneic at 40 breaths/min and has coarse inspiratory/expiratory crackles throughout and was using abdominal muscles to breathe. Dr. Krishnan contacted and informed of above and he was in to see patient. Reviewed that patient had previously been on IVF but they had been d'cd on previous shift. At time he was on tube feed at 90cc/h with a 250cc water flush q4h. Tube feed stopped per MD order. X-ray here to do chest x-ray. RT contacted to do ABG and high density press laborer in to draw ordered labs. IV Lasix was administered per MD order and telemetry placed. HR irregular (hx of afib) and telemetry reading was afib CVR w/BBB. BT present and abdomen is distended. Has been incontinent of loose stools but currently no stools. Allevyn dressings to sacrum, left buttock and leg are CDI. Has edema noted in bilateral feet/ankles and upper legs. Patient denied pain. Patient is currently asleep with RR of 24. Is now on RA (had taken oxygen off) with O2 sat of 94%. HOB remains elevated. Is being repositioned q2h. Continues on contact and enteric precautions. Fall risk score is high and bed alarm is activated.
[2022-09-01] MEDS: VANCOMYCIN 1,250 MG/250 ML PIGGYBACK 200 MG IV (22:54)
[2022-09-01 22:57] LABS: Lactate 2HR (Lactic Acid Rflx) 1.9 mmol/L (0.7-2.1)
[2022-09-01] MEDS: VANCOMYCIN TROUGH 1 REQUEST MISC (22:57)
[2022-09-01 23:01] LABS: Vancomycin Trough 13.9 ug/mL (10-20)
[2022-09-01] MEDS: ALBUTEROL 2.5 MG/3 ML NEB (ADULT) INH (23:12)
[2022-09-01] MEDS: SODIUM CHLORIDE 0.9% FLUSH 10 ML IV (23:26)
[2022-09-02] VITALS (10 sets, daily range): BP systolic 132–149; BP diastolic 53–86; PULSE 62–82; RESP 20–28; TEMP 36.1–36.7; O2SAT 92–100
[2022-09-02 06:13] LABS: Add Manual Diff / Slide Review NO; Basophils Absolute Auto 100 /uL (0-100); Basophils Percent Auto 0.8 % (0-2); Eosinophils Absolute Auto 100 /uL (0-450); Eosinophils Percent Auto 1.1 % (2-4); Hematocrit 30.7 % (41-53); Hemoglobin 9.7 g/dL (13.5-17.5); Lymphocytes Absolute Auto 700 /uL (1100-4500); Lymphocytes Percent Auto 9.2 % (25-40); Mean Corpuscular HGB Conc 31.7 % (30-36); Mean Corpuscular Hemoglobin 25.5 PG (26-34); Mean Corpuscular Volume 80.3 fL (80-100); Monocytes Absolute Auto 600 /uL (0-900); Monocytes Percent Auto 7.6 % (3-14); Neutrophils Absolute Auto 6600 /uL (1500-7000); Neutrophils Percent Auto 81.3 % (50-75); Platelet Count 346 X10^3/uL (150-400); Red Blood Cell Count 3.82 X10^6/uL (4.5-5.9); White Blood Cell Count 8.1 X10^3/uL (4.5-11.0)
[2022-09-02 06:18] LABS: Blood Urea Nitrogen 12 mg/dL (9-20); Calcium 8.1 mg/dL (8.4-10.2); Carbon Dioxide 31 mmol/L (22-32); Chloride 101 mmol/L (98-107); Estimated Glomerular Filt Rate > 60 mL/min (>60); Glucose 119 mg/dL (80-110); HEMOLYSIS < 15 (0-50); Potassium 2.8 mmol/L (3.4-5.1); Sodium 137 mmol/L (137-145)
[2022-09-02] MEDS: PIPERACILLIN/TAZO 3.375 GM in SODIUM CHLORIDE 0.9% 100 ML IV ×3 (06:30→23:34)
--- NOTE | 2022-09-02 06:50 | DIET.PN1 ---
Dietary Progress Note Assessment: TF held since last night r/t pt tachypenic, c/o SOB. Spoke to RN this morning who confirmed low residuals from PEG prior to discontinuation of TF. SENIOR STRUCTURAL ENGINEER cx for today for possible aspiration. When RD spoke to spouse Saturday she indicated pt receives most of nutrition from PEG and supplements with PO. May tolerate lower TF rate and supplement prosource to aid in wound healing. Will continue to evaluate. Ht: 195.58 cm Wt: 102.058 kg BMI: 26.6 Last BM: 09/01/22 (09/01/22 11:54) Diet: 08/29/22 Breakfast Heart Healthy Diet Diet Modifications: 08/31/22 Lunch Tube Feeding Diet Diet Modifications: TF Supplement type: Jevity 1.2 TF mode of delivery: Continuous Starting flow rate mL/hr: 20 Flow rate goal mL/hr: 90 Titration Schedule to reach Goal Rate: 20ml/hr q 4 hours Max total daily volume in mL: 3,570 Free fluid: 250 Free Water Frequency: Q4H Nutrition Type of Feeding Tube PEG 09/01/22 20:05 Type of Feeding Tube PEG 09/01/22 07:30 Type of Feeding Tube PEG 09/01/22 04:04 Type of Feeding Tube PEG 08/31/22 23:30 Labs: RBC 3.82 X10^6/uL (4.5-5.9) L 09/02/22 05:00 Hgb 9.7 g/dL (13.5-17.5) L 09/02/22 05:00 Hct 30.7 % (41-53) L 09/02/22 05:00 Creatinine 0.60 mg/dL (0.66-1.25) L 09/02/22 05:00 Lactate 1.9 mmol/L (0.7-2.1) 09/01/22 22:39 NT-Pro-B Natriuret Pep 9170 pg/mL (<450) H 09/01/22 20:25 Monitoring/Evaluations: RD f/u 1 day Electronically Signed by: Lyudmila Ellison 09/02/22 06:50 Clinical Dietitian [address] [id number]
--- NOTE | 2022-09-02 08:00 | DI.RAD.S_ITS ---
PROCEDURE: XR CHEST 1V INDICATIONS: Short of breath improving after lasix, interval change? TECHNIQUE: One view of the chest was acquired. COMPARISON: [facility], CR, XR CHEST 1V, 09/01/2022, 19:59. FINDINGS: Surgical changes and devices: An electronic device overlies the central chest. Lungs and pleura: There is improved interstitial prominence, particularly involving the right upper lobe. No pneumothorax is seen. There is a likely small left-sided pleural effusion. Mediastinum: The cardiac contours are moderately enlarged. The aorta demonstrates calcification and tortuosity. Bones and chest wall: No suspicious bony lesions. Age-appropriate bony degenerative changes are seen. Overlying soft tissues appear unremarkable. IMPRESSION: Greatly improving interstitial prominence since the prior study, particularly involving the right upper lobe. Small left-sided pleural effusion. Note: No significant discrepancy from the preliminary report. Dictated by: Ignacio Sarah M.D. on 09/02/2022 at 8:19 Approved by: Ignacio Sarah M.D. on 09/02/2022 at 8:21
[2022-09-02] MEDS: ALBUTEROL/IPRATROPIUM 3 ML AMPUL INH (08:37)
[2022-09-02] MEDS: NEO/POLYMIX B/DEX OPHTH SUSP 1 DROPS EYE-BOTH ×4 (08:38→21:55)
[2022-09-02] MEDS: SODIUM CHLORIDE 0.9% FLUSH 10 ML IV ×2 (08:38→22:24)
[2022-09-02] MEDS: FUROSEMIDE 40 MG/4 ML VIAL 20 MG IV (08:46)
[2022-09-02] MEDS: ENALAPRIL 5 MG TABLET PO ×2 (08:46→21:53)
[2022-09-02] MEDS: APIXABAN 5 MG TABLET 2.5 MG PO ×2 (08:47→21:54)
[2022-09-02 09:52] LABS: NT-proBNP (BNP-Adult 18+) 10800 pg/mL (<450)
[2022-09-02 09:54] LABS: Troponin I 0.047 ng/mL (0.01-0.034)
[2022-09-02] MEDS: POTASSIUM CHLORIDE 20 MEQ/15 ML UDC 40 MEQ TUBE ×2 (10:04→16:49)
--- NOTE | 2022-09-02 11:04 | PT.IIE ---
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 COPD (chronic obstructive pulmonary disease) Dementia Hypertension NIMA (obstructive sleep apnea) PEG tube malfunction Prostate cancer Pseudomonas urinary tract infection Smoker Suprapubic catheter Physical Therapy Inpatient Evaluation/Re-Eval M1 PT/OT-IP Prior Functional Status Start: 08/31/22 13:44 Freq: NEEDED Status: Active Protocol: Document 09/02/22 10:43 SAK (Rec: 09/02/22 11:03 [facility] [id number]) Medical Review Prior Functional Status Medical History Reviewed Yes Diet/Fluid Consistency Alternative Means,NPO Communication confused, dementia, [place] Mobility and Gait not ambulatory for 4 years per after fall onto right knee, no diagnosis, hardly moves right LE Activities of Daily Living and IADL's dependent Prior Functional Level (Other details) bedbound, though just got Mehnaz lift from [facility], had plans for Home Health PT and OT to educate her in use. Tilt in space wheelchair on order Social History Household Members spouse Living Arrangements House Number of Floors (Floors) One Floor Number of Stairs To Enter/Railing? ramp Home Equipment Manual Wheelchair M2 PT-IP Current Condition Start: 08/31/22 13:44 Freq: NEEDED Status: Active Protocol: Document 09/02/22 10:43 SAK (Rec: 09/02/22 11:03 [facility] [id number]) Physical Therapy Current Condition Current Condition Evaluation Date 09/02/22 Treatment Diagnosis pneumonia, CHF exacerbation, decubitus ulcers, weakness Onset Date 08/30/22 M3 PT-IP Subjective Start: 08/31/22 13:44 Freq: NEEDED Status: Active Protocol: Document 09/02/22 10:43 SAK (Rec: 09/02/22 11:03 [facility]AK [id number]) Subjective Physical Therapy Visit Type Type Initial Evaluation Visit Start Time 10:10 Visit Stop Time 10:45 Total Visit Minutes 35 Number of SENIOR REVENUE ACCOUNTANT Visits 0 Physical Therapy Visit Comments Patient Comments present in room. Patient verbalizing I want my mommy. Therapy Pain Assessment Pain When Pain Assessed At Rest Pain Present Pain Present Denied Pain M4 PT-IP Mobility and Gait Start: 08/31/22 13:44 Freq: NEEDED Status: Active Protocol: Document 09/02/22 10:43 SAK (Rec: 09/02/22 11:03 [facility]AK [id number]) PT-Bed Mobility Assessment Rolling Level of Assist Maximal Assistance Scooting Scooting Up and Down in Bed Maximum Assistance PT-Transfer Assessment Transfer Ability Level of Assist Total Assistance Comments Mobility Comments will need to use Mehnaz lift Gait Assessment Comments Gait Comments nonambulatory x 4 years, reports patient does not get OOB at home. M5 PT-IP Objective Assessments Start: 08/31/22 13:44 Freq: NEEDED Status: Active Protocol: Document 09/02/22 10:43 SAK (Rec: 09/02/22 11:03 [facility]AK [id number]) Orientation Orientation/Cognition Level of Alertness Confusional State Orientation Name Memory Description Short Term Impaired,Spiral Winder Impaired Gross Range of Motion Upper Extremity ROM Assessment Within Functional Limits Lower Extremity ROM Assessment Right Impaired Impairments right ankle plantarflexion contracture at least 20 degrees. Minimal active use. Knee flex 30 deg, hip abduction 20 deg. Left LE WFL Strength Upper Extremity Strength Assessment Within Functional Limits Lower Extremity Strength Assessment Bilaterally Impaired Hip right 1/5, left 3-/5 Knee right 1/5, left 2+/5 Ankle right 1/5, left 2-/5 Coordination Assessment Gross Coordination Gross Coordination Impaired Sensation Assessment Comments Sensation Comments Patient unable to participate in testing M6 PT-IP Treatment Start: 08/31/22 13:44 Freq: NEEDED Status: Active Protocol: Document 09/02/22 10:43 SAK (Rec: 09/02/22 11:03 SAK [id number]) Physical Therapy Treatment Exercises Exercises Ankle Pumps,Heel Slides,Supine Hip Abduction,Shoulder Flexion,Elbow Flexion/ Extension M7 PT-IP Assessment and Plan Start: 08/31/22 13:44 Freq: NEEDED Status: Active Protocol: Document 09/02/22 10:43 SAK (Rec: 09/02/22 11:03 SAK [id number]) PT Summary Assessment and Plan Potential Rehabilitation Potential Fair Status of Condition at Evaluation Evolving Summary Impairments ROM,Strength,Cognition,Bed Mobility,Transfers,Activity Tolerance Assessment Summary Patient admitted due to pneumonia, CHF exacerbation, and sacral decubiti. Prior to admission patient was bedbound and total care at home by his , she had just obtained a Mehnaz lift on loan from local [facility] in [place], was to be trained by Home Health PT and OT but hadn't occurred yet. Patient also has tilt in space wheelchair on order. Patient has feeding tube. Patient was able to participate in UE AROM exercises, and LE AAROM ex. Max assist for bed mobility. Did not get patient OOB at this evaluation; will require use of mechanical lift . Feel patient will require SNF rehab after hospitalization, and use of mechanical lift while in hospital. Recommend PT 1x/day while in hospital. Goals Bed Mobility Goal Moderate Assistance Transfer Goal Maximal Assistance Other Goals Transfers to bedside chair with use of mechanical lift Improve LE ROM and strength Days to Meet Goals 7 Frequency of Treatment Frequency Of Treatment Once a Day Treatment Plan Physical Therapy Treatment Plan Bed Mobility Training,Transfer Training,Therapeutic Exercise ,Discharge Planning, Neuromuscular Re-ed,Manual Therapy Recommendations To Nursing Amount of Assist Needed Total Assistance,Mechanical Lift Discharge Recommendations PT Discharge Recommendations SNF Rehab Transportation Needs at Discharge Wheelchair/Cabulance,Stretcher /Ambulance
--- NOTE | 2022-09-02 11:44 | PM.PN.1 ---
Subjective Subjective Interval history: Had difficulty with breathing and fluid overload in the night and was diuresed. Chest x-ray initially concerning for pneumonia/pulmonary edema. Treated with intravenous furosemide. Repeat chest x-ray shows improvement. Exam Vital Signs (past 8 hours): - 09/02/22 04:00 09/02/22 08:17 09/02/22 08:46 Temperature 97.7 F 97.0 F L Pulse Rate 66 62 62 Respiratory Rate 20 28 H Blood Pressure 134/77 132/70 132/70 Pulse Oximetry 100 92 Oxygen Delivery Method Oxygen Flow Rate 0 2 09/02/22 07:00 09/02/22 10:50 Temperature Pulse Rate Respiratory Rate Blood Pressure Pulse Oximetry 98 Oxygen Delivery Method Nasal Cannula Nasal Cannula Oxygen Flow Rate 2 Oxygen Delivery Method Nasal Cannula Oxygen Flow Rate 2 Narrative Exam Narrative: GEN: appears older than stated age, otherwise no acute distress HEENT: moist mucous membranes, PERRL, bilateral conjunctivitis with drainage R>L, facial drooping right side secondary to the parotid surgery previously NECK: trachea midline, no JVD, some disfiguration of right face/neck area from previous surgery for parotid cancer PULM: coarse breath sounds right lung, no wheezes, rhonchi CV: irregular, no murmurs ABD: soft, hernia noted, left lower quadrant with mild tenderness, suprapubic catheter and peg tube noted with incision site clean dry and without erythema EXT: warm and well perfused, 1+ edema BACK: erythematous back, one ucler stage IV, another stage III, no purulence noted NEURO: awake, alert, oriented, no focal deficits Objective Labs 09/02/22 05:00 09/02/22 05:00 Labs: Laboratory Results - last 24 hr 09/01/22 09/01/22 09/01/22 20:18 20:25 20:25 WBC 11.8 H RBC 3.89 L Hgb 10.0 L Hct 31.6 L MCV 81.1 MCH 25.6 L MCHC 31.6 RDW 20.0 H Plt Count 392 Neut % (Auto) 85.4 H Lymph % (Auto) 6.4 L [place] % (Auto) 7.7 Eos % (Auto) 0.3 L Baso % (Auto) 0.2 Neut # (Auto) 30533 H Lymph # (Auto) 800 L [place] # (Auto) 900 Eos # (Auto) 0 Baso # (Auto) 0 ABG pH 7.42 ABG pCO2 37.4 ABG pO2 64 L ABG HCO3 25 ABG Total CO2 26 ABG O2 Saturation 93 L ABG Base Excess 0.0 FiO2 36 Sodium 135 L Potassium 3.7 Chloride 99 Carbon Dioxide 28 BUN 14 Creatinine 0.64 L Estimated GFR > 60 BUN/Creatinine Ratio 21.9 Glucose 182 H Lactate Calcium 8.1 L Total Bilirubin 1.1 AST 21 ALT 30 Alkaline Phosphatase 136 H Troponin I 0.048 H NT-Pro-B Natriuret Pep 9170 H Total Protein 7.4 Albumin 3.3 L Globulin 4.1 Albumin/Globulin Ratio 0.8 L Vancomycin Trough 09/01/22 09/01/22 09/01/22 20:25 22:39 22:39 WBC RBC Hgb Hct MCV MCH MCHC RDW Plt Count Neut % (Auto) Lymph % (Auto) [place] % (Auto) Eos % (Auto) Baso % (Auto) Neut # (Auto) Lymph # (Auto) [place] # (Auto) Eos # (Auto) Baso # (Auto) ABG pH ABG pCO2 ABG pO2 ABG HCO3 ABG Total CO2 ABG O2 Saturation ABG Base Excess FiO2 Sodium Potassium Chloride Carbon Dioxide BUN Creatinine Estimated GFR BUN/Creatinine Ratio Glucose Lactate 2.3 H 1.9 Calcium Total Bilirubin AST ALT Alkaline Phosphatase Troponin I NT-Pro-B Natriuret Pep Total Protein Albumin Globulin Albumin/Globulin Ratio Vancomycin Trough 13.9 09/02/22 09/02/22 09/02/22 05:00 05:00 05:00 WBC 8.1 RBC 3.82 L Hgb 9.7 L Hct 30.7 L MCV 80.3 MCH 25.5 L MCHC 31.7 RDW 20.0 H Plt Count 346 Neut % (Auto) 81.3 H Lymph % (Auto) 9.2 L [place] % (Auto) 7.6 Eos % (Auto) 1.1 L Baso % (Auto) 0.8 Neut # (Auto) 6600 Lymph # (Auto) 700 L [place] # (Auto) 600 Eos # (Auto) 100 Baso # (Auto) 100 ABG pH ABG pCO2 ABG pO2 ABG HCO3 ABG Total CO2 ABG O2 Saturation ABG Base Excess FiO2 Sodium 137 Potassium 2.8 L Chloride 101 Carbon Dioxide 31 BUN 12 Creatinine 0.60 L Estimated GFR > 60 BUN/Creatinine Ratio 20.0 Glucose 119 H Lactate Calcium 8.1 L Total Bilirubin AST ALT Alkaline Phosphatase Troponin I NT-Pro-B Natriuret Pep 06241 H Total Protein Albumin Globulin Albumin/Globulin Ratio Vancomycin Trough 09/02/22 05:00 WBC RBC Hgb Hct MCV MCH MCHC RDW Plt Count Neut % (Auto) Lymph % (Auto) [place] % (Auto) Eos % (Auto) Baso % (Auto) Neut # (Auto) Lymph # (Auto) [place] # (Auto) Eos # (Auto) Baso # (Auto) ABG pH ABG pCO2 ABG pO2 ABG HCO3 ABG Total CO2 ABG O2 Saturation ABG Base Excess FiO2 Sodium Potassium Chloride Carbon Dioxide BUN Creatinine Estimated GFR BUN/Creatinine Ratio Glucose Lactate Calcium Total Bilirubin AST ALT Alkaline Phosphatase Troponin I 0.047 H NT-Pro-B Natriuret Pep Total Protein Albumin Globulin Albumin/Globulin Ratio Vancomycin Trough PFSH Medical History Atrial fibrillation Bilateral foot-drop 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 Multidrug resistant Pseudomonas UTI secondary to chronic suprapubic catheter -repeat UA still positive, urine culture with GNB >100k -continue zosyn for 7 days total 2. Shigella with diarrhea -presumed positive off preliminary reports sent from other hospital -plan for 3 days oral azithromycin 500mg daily - completed -follow up final stool studies - ordered -results pending 3. Sacral decubitus ulcer stage IV -with erythema concern for infection -swab done in ED, cultures with multiple mixed GNR's -MRSA positive as per today, continue vancomycin -wound care consulted -continue zosyn as above 4. Coronovirus (not covid) in setting of COPD without exacerbation -currently with a mild cough -ordered PRN nebs, and already on azithromycin for above infection -azithromycin completed 5. Questionable cholecystitis -on admission without abdominal pain, ruq tenderness, no leukocytosis -continue antibiotics as above -Zosyn medication will essentially cover 6. s/p PEG secondary to history of parotid gland cancer -dietary consulted and will start tube feeds -this was held last night due to concern for aspiration. However chest x-ray this morning indicates that the furosemide intravenous helped alleviate pulmonary edema and background pneumonia is being covered with Zosyn and vancomycin 7. History of prostate cancer -s/p suprapubic catheter 8. Atrial fibrillation -continue eliquis as no urgent need for surgery 10. NIMA -not on cpap 11. Conjunctivitis -R>L exudate from eyes with redness -daily abx/steroid eye drops -ongoing 12.Dementia with Agitation.? Initiated Haldol 0.5 mg IV as needed with maximum dose per 24 hours 3 mg. Today informs that patient has had an allergic reaction to Haldol in the past. We will put on allergies list and discontinue. 13. Persistent diarrhea.? We will treat with Imodium.? Repeat stool culture also been ordered. 14. Hypokalemia. Pharmacy replacing. Follow labs and clinically. Quality VTE Deep Vein Thrombosis/Pulmonary Embolism Present on Admission: No
[2022-09-02] MEDS: VANCOMYCIN 1,250 MG/250 ML PIGGYBACK 200 MG IV ×2 (12:47→23:32)
[2022-09-02] MEDS: FUROSEMIDE 20 MG/2 ML VIAL IV ×2 (12:49→21:55)
--- NOTE | 2022-09-02 15:33 | CM.DPC ---
DCP Cont: Per MD, pt still on IV-Abx and had likely CHF exac last night but seems better controlled and last night TF was on hold but can likely resume today with his baseline PEG tube. Per PT, pt remains confused with dementia but spouse bedside and pt bedbound for about the past 4 years with ricky val at home and spouse did place order for Tilt in Space w/c for better home use. PT recommending SNF and OT orders placed and pending for tomorrow Mon. SW inquired with MD if pt appropriate for discussion of Hospice/Comfort Care and MD will help determine in discussion with pt/spouse. Per RN, pt has tunneling wound and Wound Consult has been placed but [facility] might not have availability to see pt bedside but will still need to be determined tomorrow Mon with Tara at [facility]. SW called spouse and explained role and discussed some barriers to SNF being pt's dementia, might be close to baseline as pt bedbound at home, level of care needs, how extensive wound care needs are. SW inquired about Goals of Care and spouse states pt remains Full Code and wants full tx even if surg recommended for wound care etc then spouse states pt wants full treatment still. Spouse inquired about ostomy placement to help with wound healing and SW updated MD who will discuss rectal tube or other options if pt continues to have constant diarrhea. SW confirmed that spouse only wants [facility] for SNF rehab and if they cannot accept then she will take pt back [facility], TK CGs and herself to assist pt. Spouse states PCP is currently Dr. Goldman but spouse plans to eventually change pt's PCP as she has not been very happy with Dr. Goldman. Spouse also working on setting up Para-transit for pt especially once tilt in space w/c secured but confirms that pt has Medicaid transportation benefits and likely would need BLS transport under Medicaid set up for home if SNF cannot accept. Plan: SW to follow closely in AM with [facility] to see if they can consult bedside kiara. SW to call [facility] to fax pt clinicals and for Resume PEG tube feeding at d/c. [facility] to determine if they can accept at d/c otherwise spouse to take pt home with Resume and TK CGs. Pt may need Medicaid BLS transport if d/c to home. EMILY Zaman
[2022-09-02] MEDS: INSULIN LISPRO 100 UNIT/ML 3ML VIAL SUBCUT ×2 (17:56→21:56)
--- NOTE | 2022-09-02 19:44 | RT ---
pt on 1L sat is 99% took patient off oxygen because patient is not in any distress and has not needed oxygen in 24 hrs
[2022-09-03] VITALS (11 sets, daily range): BP systolic 125–163; BP diastolic 69–87; PULSE 58–89; RESP 15–28; TEMP 35.8–36.3; O2SAT 94–98
[2022-09-03 05:47] LABS: Add Manual Diff / Slide Review NO; Basophils Absolute Auto 100 /uL (0-100); Basophils Percent Auto 0.8 % (0-2); Eosinophils Absolute Auto 200 /uL (0-450); Hematocrit 31.7 % (41-53); Lymphocytes Absolute Auto 800 /uL (1100-4500); Lymphocytes Percent Auto 9.6 % (25-40); Mean Corpuscular HGB Conc 31.6 % (30-36); Mean Corpuscular Hemoglobin 25.3 PG (26-34); Mean Corpuscular Volume 80.1 fL (80-100); Monocytes Absolute Auto 600 /uL (0-900); Monocytes Percent Auto 7.2 % (3-14); Neutrophils Absolute Auto 6700 /uL (1500-7000); Neutrophils Percent Auto 79.4 % (50-75); Platelet Count 387 X10^3/uL (150-400); Red Blood Cell Count 3.95 X10^6/uL (4.5-5.9); Red Cell Distribution Width 20.2 % (11.6-14.8); White Blood Cell Count 8.4 X10^3/uL (4.5-11.0)
[2022-09-03 05:57] LABS: BUN Creatinine Ratio 28.3 (6-22); Blood Urea Nitrogen 17 mg/dL (9-20); Calcium 8.1 mg/dL (8.4-10.2); Carbon Dioxide 33 mmol/L (22-32); Chloride 96 mmol/L (98-107); Estimated Glomerular Filt Rate > 60 mL/min (>60); Glucose 181 mg/dL (80-110); HEMOLYSIS < 15 (0-50); Potassium 3.3 mmol/L (3.4-5.1); Sodium 135 mmol/L (137-145)
[2022-09-03 05:58] LABS: Magnesium 1.7 mg/dL (1.6-2.3); Phosphorous 2.5 mg/dL (2.3-3.7)
[2022-09-03 06:06] LABS: NT-proBNP (BNP-Adult 18+) 5200 pg/mL (<450)
[2022-09-03 06:14] LABS: Anisocytosis 2+; Hypochromasia 1+
[2022-09-03] MEDS: PIPERACILLIN/TAZO 3.375 GM in SODIUM CHLORIDE 0.9% 100 ML IV ×3 (07:32→22:13)
[2022-09-03] MEDS: POTASSIUM CHLORIDE 20 MEQ/15 ML UDC 40 MEQ PO (07:38)
--- NOTE | 2022-09-03 09:04 | P.PN_ITS ---
Subjective Subjective Interval history: Had run of V-tach for telemetry earlier this morning. Eight beat run. M edication was adjusted for blood pressure and potassium. Patient himself has no new complaints. Diarrhea is controlled. Resting comfortably. Just wants to have a nap. Patient states that he is feeling much better. Exam Vital Signs (past 8 hours): - 09/03/22 04:38 09/03/22 04:39 09/03/22 08:51 Temperature 97.3 F L 96.4 F L Pulse Rate 58 L 66 Respiratory Rate 21 24 Blood Pressure 142/83 H 125/87 Pulse Oximetry 96 96 Oxygen Delivery Method Nasal Cannula Oxygen Flow Rate 0 Narrative Exam Narrative: GEN: appears older than stated age, otherwise no acute distress HEENT: moist mucous membranes, PERR, facial drooping right side secondary to the parotid surgery previously, noted conjunctivitis [id number]-left. Has nasal prongs in place but based on vitals patient is O2 satting 96% on no oxygen. NECK: trachea midline, no JVD, some disfiguration of right face/neck area from previous surgery for parotid cancer PULM: Adequate air entry throughout the lung mauro, no wheezes, rhonchi, no crackles CV: irregular, no murmurs ABD: soft, hernia noted, suprapubic catheter and peg tube noted with incision site clean dry and without erythema EXT: warm and well perfused, minimal edema BACK: erythematous back, one ucler stage IV, another stage III, no purulence noted NEURO: awake, alert, oriented, no focal deficits Objective Labs 09/03/22 05:20 09/03/22 05:20 Labs: Laboratory Results - last 24 hr 09/02/22 09/02/22 09/03/22 05:00 05:00 05:20 WBC RBC Hgb Hct MCV MCH MCHC RDW Plt Count Neut % (Auto) Lymph % (Auto) [place] % (Auto) Eos % (Auto) Baso % (Auto) Neut # (Auto) Lymph # (Auto) [place] # (Auto) Eos # (Auto) Baso # (Auto) RBC Morphology Hypochromasia Anisocytosis Sodium Potassium Chloride Carbon Dioxide BUN Creatinine Estimated GFR BUN/Creatinine Ratio Glucose Calcium Phosphorus Magnesium Troponin I 0.047 H NT-Pro-B Natriuret Pep 82654 H 5200 H 09/03/22 09/03/2209/03/23 05:20 05:20 05:20 WBC 8.4 RBC 3.95 L Hgb 10.0 L Hct 31.7 L MCV 80.1 MCH 25.3 L MCHC 31.6 RDW 20.2 H Plt Count 387 Neut % (Auto) 79.4 H Lymph % (Auto) 9.6 L [place] % (Auto) 7.2 Eos % (Auto) 3.0 Baso % (Auto) 0.8 Neut # (Auto) 6700 Lymph # (Auto) 800 L [place] # (Auto) 600 Eos # (Auto) 200 Baso # (Auto) 100 RBC Morphology See below Hypochromasia 1+ H Anisocytosis 2+ H Sodium 135 L Potassium 3.3 L Chloride 96 L Carbon Dioxide 33 H BUN 17 Creatinine 0.60 L Estimated GFR > 60 BUN/Creatinine Ratio 28.3 H Glucose 181 H Calcium 8.1 L Phosphorus 2.5 Magnesium 1.7 Troponin I NT-Pro-B Natriuret Pep PFSH Medical History Atrial fibrillation Bilateral foot-drop 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 Multidrug resistant Pseudomonas UTI secondary to chronic suprapubic catheter -repeat UA still positive, urine culture with GNB >100k -continue zosyn for 7 days total 2. Shigella with diarrhea -presumed positive off preliminary reports sent from other hospital -plan for 3 days oral azithromycin 500mg daily - completed -follow up final stool studies - ordered -results pending 3. Sacral decubitus ulcer stage IV -with erythema concern for infection -swab done in ED, cultures with multiple mixed GNR's -MRSA positive as per today, continue vancomycin, interval to finish on September 06 concurrent with Zosyn. -wound care consulted -continue zosyn as above, should finish at the end of September 06 -follow-up cultures have been negative 4. Coronovirus (not covid) in setting of COPD without exacerbation -currently with a mild cough -ordered PRN nebs, and already on azithromycin for above infection -azithromycin completed 5. Questionable cholecystitis -on admission without abdominal pain, no leukocytosis -continue antibiotics as above -Zosyn medication will essentially cover 6. s/p PEG secondary to history of parotid gland cancer -dietary consulted and will start tube feeds -this was held 2 nights ago due to concern for aspiration.? However chest x-ray this yesterday indicated that the furosemide intravenous helped alleviate pulmonary edema and background pneumonia is being covered with Zosyn and vancomycin 7. History of prostate cancer -s/p suprapubic catheter 8. Atrial fibrillation -continue eliquis as no urgent need for surgery 10. NIMA -not on cpap 11. Conjunctivitis -R>L exudate from eyes with redness -daily abx/steroid eye drops -ongoing 12.Dementia with Agitation.? Initiated Haldol 0.5 mg IV as needed with maximum dose per 24 hours 3 mg.? Yesterday informs that patient has had an allergic reaction to Haldol in the past.? We will put on allergies list and discontinue. 13. Persistent diarrhea.? We will treat with Imodium.? Repeat stool culture also been ordered -still pending. Diarrhea is controlled at this time 14. Hypokalemia.? Regular dose and Pharmacy replacing. 15. Elevated BNP. Significantly decreasing. Today is 5200, continue to follow. Follow labs and clinically. Quality VTE Deep Vein Thrombosis/Pulmonary Embolism Present on Admission: No
[2022-09-03] MEDS: INSULIN LISPRO 100 UNIT/ML 3ML VIAL SUBCUT ×4 (10:08→21:46)
[2022-09-03] MEDS: NEO/POLYMIX B/DEX OPHTH SUSP 1 DROPS EYE-BOTH ×4 (10:08→21:44)
[2022-09-03] MEDS: APIXABAN 5 MG TABLET 2.5 MG PO ×2 (10:09→21:45)
[2022-09-03] MEDS: ENALAPRIL 5 MG TABLET PO ×2 (10:09→21:45)
[2022-09-03] MEDS: FUROSEMIDE 20 MG/2 ML VIAL IV ×2 (10:09→21:45)
[2022-09-03] MEDS: SODIUM CHLORIDE 0.9% FLUSH 10 ML IV ×2 (10:27→21:46)
--- NOTE | 2022-09-03 10:29 | DIET.PN1 ---
Dietary Progress Note Assessment: TF currently at goal and seems to be tolerating. Diarrhea improved. Fluid overload over weekend, now improved. NITROCELLULOSE MAKER eval planned for this morning. Glucose has been around low 180s when TF is running. Recommend HgA1c check. Glucose particularly concerning for wound healing. Lower carb TF formula for consideration. Recommend daily weights. Will continue to monitor. K 3.3 L glucose 181 phos 2.5 Mg 1.7 Ht: 195.58 cm Wt: 102.058 kg BMI: 26.6 Last BM: 09/03/22 (09/03/22 05:20) MNA: 9 Mac Score: 13 Diet: 08/29/22 Breakfast Heart Healthy Diet Diet Modifications: 08/31/22 Lunch Tube Feeding Diet Diet Modifications: TF Supplement type: Jevity 1.2 TF mode of delivery: Continuous Starting flow rate mL/hr: 20 Flow rate goal mL/hr: 90 Titration Schedule to reach Goal Rate: 20ml/hr q 4 hours Max total daily volume in mL: 3,570 Free fluid: 250 Free Water Frequency: Q4H Nutrition Type of Feeding Tube PEG 09/02/22 21:00 Type of Feeding Tube PEG 09/02/22 17:00 Type of Feeding Tube PEG 09/02/22 13:00 Type of Feeding Tube PEG 09/01/22 20:05 Labs: RBC 3.95 X10^6/uL (4.5-5.9) L 09/03/22 05:20 Hgb 10.0 g/dL (13.5-17.5) L 09/03/22 05:20 Hct 31.7 % (41-53) L 09/03/22 05:20 Creatinine 0.60 mg/dL (0.66-1.25) L 09/03/22 05:20 Lactate 1.9 mmol/L (0.7-2.1) 09/01/22 22:39 NT-Pro-B Natriuret Pep 5200 pg/mL (<450) H 09/03/22 05:20 Interventions: 1. daily weights please 2. discussed hgA1c order with hospitalist Monitoring/Evaluations: RD f/u 1-2 days Electronically Signed by: Lydumila Ellison 09/03/22 10:29 Clinical Dietitian [address] [id number]
--- NOTE | 2022-09-03 11:01 | CM.DPC ---
Addendum entered by EMILY Zaman 09/03/22 13:21: ADD: SW met bedside with pt and spouse as spouse requesting local [facility] PCP list as she still has interest in changing pt's PCP. SW provided [facility] provider list and spouse was hopeful a potential provider could meet bedside with pt prior to d/c and SW explained that potential new PCP would not be able to meet bedside especially when pt is not an established pt of theirs and encouraged spouse to call to see which physicians are accepting new pts and to schedule an Establish of Care appointment which might be a month or two out. Spouse appreciative. BF Original Note: DCP Home Planning Per MD, pt making progress and off oxygen now and still some VTach and not yet medically stable to d/c today but possibly in 1-2 days and pt's diarrhea has significantly improved with medications and tx. SW spoke to [facility] admissions and they confirm they do not feel they can adequately manage pt's needs and decline accepting him. [facility] was the only SNF spouse was agreeable to. SW called spouse and updated her on [facility] denial and spouse confirms she will plan for pt coming home especially since his diarrhea is clearing and she is aware he may be stable for d/c tomorrow. MD will meet bedside with spouse and discuss medical update and spouse has questions about rectal tube options for better wound care if needed. SW called [facility] as pt is open with [facility] and updated on possible d/c tomorrow and faxed clinicals to review and she confirms they just need d/c summ and Resumption Orders at d/c and aware that pt situation is tenuous and not likely to improve and they have been discussing care needs with spouse and will continue services for a little while longer. SW called [facility] and confirmed they are showing pt open with Jevity 1.2 and only need d/c summary faxed to [phone] at discharge and no orders needed as pt remains on the same formulary. SW called Medicaid transportation and confirmed pt has transportation benefits if BLS transport needed at discharge to home. Medicaid transport form will need to be completed and faxed day of discharge. Plan: SW to follow for plan of d/c home with spouse in 1-2 days with ongoing [facility] CG and [facility] program and [facility] Peg tube feeding. SW to fax d/c summary to [facility], [facility] and [facility] and possible need for Medicaid S transport. Jessica Hernandez MSW
[2022-09-03 11:14] LABS: Vancomycin Trough 22.9 ug/mL (10-20)
[2022-09-03] MEDS: VANCOMYCIN 1,000 MG/200 ML PIGGYBACK 200 MG IV (12:53)
--- NOTE | 2022-09-03 14:10 | PT-IP ANOTE ---
Pt has been at bedbound status for 4+ years. He has been receiving services from [facility] program and recently acquired a val lift. therapists are working with pt's to teach her how to use it safely. Reviewed the chart and spoke with evaluating PT who clarified that her recommendation was for long-term care vs return to home with 24/7 assist and val. In the context of chronic immobility along with current decubitus pressure injuries, pt is not a rehab candidate at this time. Will discharge the PT order.
--- NOTE | 2022-09-03 14:27 | OT.IPNOTE ---
Per chart pt has not been OOB for 4 years and needs assist for all needs. Pt is not appropriate for OT, discharge OT eval orders.
--- NOTE | 2022-09-03 16:06 | ST.IPCSEOM ---
Visit Care Team Role Provider Type Celina Restrepo MD Primary Care Provider Physician Specialty: Medical Address: [facility] [address], [address] Email: Gabino Sharpe DPM Other Providers Physician Specialty: Wound Care Address: [address] [place], [address] Fax: Email: Ellen Culp DPM Other Providers Non-Staff Specialty: Podiatry Address: [address] [place] [address], [address] Email: DEV Lowry Other Providers Advanced Pre K Lead Teacher Specialty: Medical Address: [address] [place] [address], [address] Email: [email or web address] Duane Muniz MD Other Providers Physician Specialty: Wound Care Address: [address] [place] [address], [address] Email: [email or web address] Carlos Tomlinson MD Other Providers Non-Staff Specialty: Wound Care Address: [address] [place] [address], [address] Email: [email or web address] Hany Leone DO Emergency Provider Physician Referring Provider Specialty: Emergency Medicine Address: [address] [place] [address], [address] Email: [email or web address] MD Admit Provider Physician Attending Provider Specialty: Hospitalist Address: [address] [place] [address], [address] Fax: Email: [email or web address] Infection and inflammatory reaction due to indwelling urethral catheter, initial encounter (08/30/22) Past Medical History (Last Reviewed 04/01/23 @ 08:35 by Maryan Hall MD) Atrial fibrillation (Medical) Bilateral foot-drop (Medical) 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) COPD (chronic obstructive pulmonary disease) (Medical) Dementia (Medical) Hypertension (Medical) NIMA (obstructive sleep apnea) (Medical) PEG tube malfunction (Medical) Prostate cancer (Medical) Pseudomonas urinary tract infection (Medical) Smoker (Social Hx) Suprapubic catheter (Medical) Speech-Language Pathology Swallow Evaluation TICKET AGENT Clinical Swallow Evaluation Start: 09/03/22 15:19 Freq: Status: Active Protocol: Document 09/03/22 15:19 ZS (Rec: 09/03/22 16:05 ZS [id number]) Clinical Swallow Evaluation Session Time Visit Start Time 11:30 Visit Stop Time 12:20 Total Visit Minutes 50 Setting Assessment Location Acute Care Visit Type Note Type Initial evaluation Next Note Type Next Note Type Treatment Note Patient Information Identification Type Name,Wristband History Per H&P: Mr. 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 He apparently has had chronic diarrhea for months. He presented to [facility] recently with fatigue in Jul 2022. At that time was found to have pseudomonas UTI . He also had gallbladder wall changes, but thought not to have acute cholecystitis. He has apparently had ongoing symptoms. He had stool culture recently sent, that is preliminary but possibly concerning for Shigella. He has had a repeat UA done recently that again grew back pseudomonas UTI which as resistant to multiple drugs but sensitive to zosyn and imipenem. Apparently he was brought in after recommendation from home health for worsening sacral ulcers. He also has a cough, no shortness of breath, and is active vaping. He denies any abdominal pain, nausea, vomiting. In the ED workupw as done, vitals notable for blood pressure 150/s80s, heart rate in the 60s, sats in the high 90s on room air. Labs notable for WBC 7.5, hgb 10.2. INR 1.7 . Na 134, creatinine 0.58. BNP 3000. Lipase 1175. Procal 0. 33. UA with positive nitrates, 3+ leuk esterase, 5-10 wbcs, moderate bacteria. Respiratory panel with coronavirus nl63 positive. Chest xray with no acute process. CT abdomen pelvis with patchy opacity in left lung base, and gallbladder with pericholecystic fluid versus wall thickening. Abdominal ultrasound with cholelithiasis , pericholecystic fluid. 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 Surgery was consulted and said patient had no current indication for surgery. He was ordered for IV antibiotics and admitted for further treatment. Per NSG note pt had concern for possible aspiration and was exhibiting frequent cough and wet vocal quality as well as difficulty managing secretions. Subjective Observations Pt was sleeping with towel over eyes and mouth ajar when TICKET AGENT and TICKET AGENT internal medicine physician arrived. was at bedside. He awoke to verbal and tactile cues and agreed to participate in swallow evaluation. Pt was repositioned to upright position for PO trials. Reported by Patient Other Symptoms Choking,Coughing,Difficulty swallowing liquids Current Diet Regular,Thin liquids,Tube feeding Baseline Feeding Method Independent in self-feeding Results Pt is currently tube-fed as primary means of nutrition. He has limited PO intake which indicated includes cookies, soups, and puree textures. She mentioned they were hoping pt would be weaned off of tube feeding though stated this would require him to meet his nutritional needs soley through PO intake for 3 months prior to discontinuing tube feeding. Objective Assessment Mental Status Alert,Responsive,Cooperative, Lethargic Oral Integrity WFL Dentition Missing teeth,Upper dentures/ partials,Lower dentures/ partials Lip Function Moderate impairment Observation of Lips at Rest Left sided weakness/Drooping, Right sided weakness/Drooping Pucker Reduced range of motion, Reduced strength Lip Retraction Reduced range of motion Tongue Function Mild impairment Observations of Tongue at Rest Within normal limits Tongue Protrusion Reduced range of motion Tongue Retraction Within normal limits Tongue Lateralization Reduced range of motion, Incoordination Observations of Jaw at Rest Within normal limits Observations of Hard/Soft Palate Within normal limits Nasality Within normal limits Comment Pt presented with right side labial droop and left side labial weakness at rest. reported his nerve was cut and the right side of his face was folded over during surgery . Right eye droop present as well as cheek. Lips appeared more symmetrical in motion, though limited ROM was observed across all structures . Reduced oral opening which limited visual of intra-oral structures. Additionally, pt exhibited delayed initiation of labial closure when spoon was put in his mouth. When tactile cues were provided (e. g., spoon against upper lip), he closed his mouth around spoon to remove bolus. Did not assess jaw opening/closing, though this may impact oral opening. Recommend assessing this in future session. Pt is edentulous and reported he has dentures but has not worn them since surgery as they no longer fit. She reported all the foods he is currently eating at home are soft enough to chew without dentures. Reduced oral opening limits bolus size pt can accommodate and pt is reported to primarily use straws at home, which can negatively impact swallow safety. Pt exhibited limited use of arms/ hands and required feeding assistance for all textures. Edentulous status would likely impact the textures he can safely manage (e.g., no foods that require extensive chewing or hard foods). Food and Liquid Trials Position During Assessment Upright (90 degrees),Slightly reclined,In bed Liquids Trialed Ice chips,Thin Solids Trialed Puree Administration Type Tea spoon,Straw,Dependent feeding Oral Impairment Moderately impaired Oral Phase Comments No anterior loss of bolus. Pt did exhibit difficulty with expulsion of phlegm and required TICKET AGENT assistance to remove excess. No oral residue or pocketing observed, though oral opening was small and visualization was limited. Due to edentulous status, puree textures were the only consistency trialed and mastication was not evaluated. Pharyngeal Impairment Mildly impaired Pharyngeal Phase Comments Coughing observed following trial of thin water through straw cup, though pt took large bolus sizes and was drinking continuously, which would negatively contribute to swallow safety. Wet/gurgly vocal quality observed following trials of ice chips, though vocal quality was not clear prior to initiating PO trials and pt had excess phlegm following one of the trials of ice chips that would also have contributed to vocal quality. Wet/gurgly vocal quality observed following trials of thin liquid where pt took in large quantities of liquid at once. When smaller sips/bites were taken, wet/gurgly vocal quality subsided. Completed PO trials in upright and semi- reclined position as pt reported he is often semi- reclined at home when eating/ drinking. Provided education regarding importance of positioning. Pt did exhibit clear vocal quality with small bolus sizes even when in semi -reclined position. No overt signs or symptoms of aspiration observed with PO trials of applesauce. Cannot rule out silent aspiration with clinical swallow evaluation. Comment Limited PO trials completed, unable to assess endurance at this time. Findings Swallowing Function Oropharyngeal phase dysphagia Severity of Swallow Impairment Moderately impaired Contributing Factors to Swallow Reduced oral strength/ Impairment coordination/sensation, Mastication inefficiency, Impaired airway protection Prognosis Guarded Based on Age,Comorbidities,Duration of symptoms/severity Comment The pt presents with moderate oropharyngeal phase dysphagia characterized by edentulous status, limited strength and ROM in all oral structures following surgery where nerve was cut, and impaired airway protection. Pt exhibited coughing or wet/gurgly vocal quality when taking large bites/sips of thin liquid through straw cup. When bolus size was reduced, overt signs/ symptoms of aspiration subsided. Mastication is impaired due to pt's edentulous status and softer textures are recommended. Recommend thin liquids through straw cup in small quantities while pt is in upright position. Recommend puree textures due to mastication inefficiency. Recommend follow -up with speech therapy to provide education regarding tube-feeding, prognosis, and ensure diet tolerance and continued swallow safety. Impact on Safety and Functioning Risk for aspiration Recommendations Instrumental Assessment No Swallowing Treatment Yes Frequency follow-up x1-2 for diet tolerance Recommended Solids Puree Recommended Liquids Thin Other Recommendations Upright positioning - as close to 90 degrees as pt will tolerate Small bites/sips - pinch or remove straw to control bite/ sip size Safety Precautions/Swallowing Feed only when alert,Reduce Recommendations distractions,Remain upright ( 90 degrees) during all oral intake,Upright position at least 30 minutes after meals, Small bites and sips when eating,Slow rate; swallow between bites,1 to 1 feeding assistance Medication Recommendations Whole in Carrier Discharge Recommendations Home with Home Health Education Patient/Caregiver Education Described results of evaluation,Patient expressed understanding of evaluation, Patient expressed agreement with goals & treatment plans, Family/caregivers expressed understanding of evaluation, Family/caregivers expressed agreement with goals & treatment plans,Patient expressed understanding of safety precautions,Patient expressed understanding of feeding recommendations,Family /caregivers expressed understanding of safety precautions,Family/caregivers expressed understanding of feeding recommendations, Patient requires further education/training,Family/ caregivers require further education/training Goals Long-term Goals Pt will safely tolerate least restrictive diet to meet his nutrition and hydration needs.
[2022-09-03] MEDS: POTASSIUM CHLORIDE 20 MEQ/15 ML UDC PO (17:02)
[2022-09-03] MEDS: HYDRALAZINE 10 MG TABLET PO (21:44)
[2022-09-04] VITALS (13 sets, daily range): BP systolic 130–169; BP diastolic 65–85; PULSE 60–75; RESP 15–18; TEMP 35.5–37.6; O2SAT 93–98
[2022-09-04] MEDS: VANCOMYCIN 1,000 MG/200 ML PIGGYBACK 200 MG IV (00:05)
[2022-09-04 06:11] LABS: Add Manual Diff / Slide Review NO; Basophils Absolute Auto 100 /uL (0-100); Basophils Percent Auto 1.1 % (0-2); Eosinophils Absolute Auto 300 /uL (0-450); Eosinophils Percent Auto 3.4 % (2-4); Hematocrit 34.4 % (41-53); Hemoglobin 10.8 g/dL (13.5-17.5); Lymphocytes Absolute Auto 700 /uL (1100-4500); Lymphocytes Percent Auto 8.6 % (25-40); Mean Corpuscular HGB Conc 31.4 % (30-36); Mean Corpuscular Hemoglobin 25.7 PG (26-34); Mean Corpuscular Volume 81.8 fL (80-100); Monocytes Absolute Auto 600 /uL (0-900); Neutrophils Absolute Auto 6600 /uL (1500-7000); Neutrophils Percent Auto 79.9 % (50-75); Platelet Count 391 X10^3/uL (150-400); Red Cell Distribution Width 20.3 % (11.6-14.8); White Blood Cell Count 8.3 X10^3/uL (4.5-11.0)
[2022-09-04 06:17] LABS: Alanine Aminotransferase 24 IU/L (<50); Albumin 3.3 g/dL (3.5-5.0); Albumin Globulin Ratio 0.8 (1.0-2.8); Alkaline Phosphatase 105 U/L (38-126); Aspartate Aminotransferase 27 IU/L (17-59); BUN Creatinine Ratio 39.2 (6-22); Bilirubin Total 1.1 mg/dL (0.2-1.3); Blood Urea Nitrogen 20 mg/dL (9-20); Calcium 8.5 mg/dL (8.4-10.2); Carbon Dioxide 33 mmol/L (22-32); Chloride 94 mmol/L (98-107); Estimated Glomerular Filt Rate > 60 mL/min (>60); Globulin 4.3 g/dL (1.7-4.1); Glucose 192 mg/dL (80-110); HEMOLYSIS 37 (0-50); Potassium 3.5 mmol/L (3.4-5.1); Sodium 136 mmol/L (137-145); Total Protein 7.6 g/dL (6.3-8.2)
[2022-09-04 06:26] LABS: NT-proBNP (BNP-Adult 18+) 3240 pg/mL (<450)
[2022-09-04 06:33] LABS: Procalcitonin 0.16 ng/mL (<0.5)
[2022-09-04] MEDS: SODIUM CHLORIDE 0.9% 250 ML 21 ML IV (06:33)
[2022-09-04] MEDS: PIPERACILLIN/TAZO 3.375 GM in SODIUM CHLORIDE 0.9% 100 ML IV ×3 (06:33→23:09)
[2022-09-04 07:33] LABS: Anisocytosis 2+; Hypochromasia 2+
[2022-09-04] MEDS: INSULIN LISPRO 100 UNIT/ML 3ML VIAL SUBCUT ×4 (09:19→21:17)
[2022-09-04] MEDS: ACETAMINOPHEN 325 MG TABLET 650 MG PO (09:33)
[2022-09-04] MEDS: POTASSIUM CHLORIDE 20 MEQ/15 ML UDC PO ×2 (09:33→18:44)
[2022-09-04] MEDS: APIXABAN 5 MG TABLET 2.5 MG PO ×2 (09:33→21:16)
[2022-09-04] MEDS: ENALAPRIL 5 MG TABLET PO ×2 (09:35→21:16)
[2022-09-04] MEDS: LOPERAMIDE 2 MG CAPSULE PO (09:35)
[2022-09-04] MEDS: SODIUM CHLORIDE 0.9% FLUSH 10 ML IV (09:35)
[2022-09-04] MEDS: FUROSEMIDE 20 MG/2 ML VIAL IV ×2 (09:36→21:17)
[2022-09-04] MEDS: NEO/POLYMIX B/DEX OPHTH SUSP 1 DROPS EYE-BOTH ×4 (09:36→21:18)
--- NOTE | 2022-09-04 10:53 | CM.DPC ---
Addendum entered by EMILY Zaman 09/04/22 11:33: ADD: Return call from Tara at [facility] [[email or web address] and updated that pt not discharging today so she will get pt on their schedule for bedside Consult tomorrow morning Sat with either their Wound Provider or their Wound cork pressing machine operator to give orders and recommendations for HH to follow and then can get pt on their schedule for the following week for outpt f/u. YUKI updated RN who is bedside with pt and spouse and will update them. BF Original Note: DCP Cont: Per MD, pt off oxygen but likely will need to remain until 7 day IV-Abx course completed which likely will be in 2 days on 09/06/22. SW and RN [place] [facility] [place] [email or web address] to confirm they are still having a Wound RN consult bedside for wound recommendations and awaiting call back as YUKI and Jennifer spoke to Tara at [facility] [[email or web address] yesterday 09/03/22. SW completed Medicaid BLS form as pt will likely need this for transport at d/c and SW called spouse and left updating likely d/c Sat or when IV-Abx course completed and to confirm BLS needed at d/c and if any steps to enter. Plan: SW to follow for plan of likely d/c 09/06 when IV-Abx completed and via Medicaid BLS (form will need to be faxed) with [facility] and [facility] and [facility] CGs and all will need to be faxed discharge pwk (see handoff for specifics). EMILY Zaman
--- NOTE | 2022-09-04 11:07 | DIET.PN1 ---
Addendum entered by Lyudmila Ellison 09/04/22 12:00: Contacted pt (Ashley). She tells me he has h/o diabetes but it had gone away with weight loss. Discussed switching home formula to lower carb option. Also discussed obtaining glucometer for home BG checks. RN reports watery stool today. Added banana flakes BID. Can increase to TID prn. Original Note: Dietary Progress Note Assessment: TF continues at goal. Seems to be tolerating well. Still having some diarrhea though. RN today reports bout of diarrhea last night. Might benefit from banana flakes to help with diarrhea. BG continue to be elevated (192mg/dl), concerning for wound healing. Will switch to lower carbohydrate formula. improved K+ at 3.5, no HgA1c for review Interventions: 1. Switch to glucerna 1.2 to reduce CHO intake for BG managment 2. This provides 2592kcal (25kcal/kg), 130g PRO (1.3g/kg), 247g CHO, 1750ml feed water, with flushes total fluids 3250ml 3. Consideration for banana flakes 2-3x per day via TF to address diarrhea Banatrol Recommendations: One packet of Banatrol Plus 2-3x per day every six to eight hours of feeding. Add 120 mL of room-temperature water to a 240-mL cup. Slowly stir in the contents of one packet of Banatrol Plus. Stir until dissolved. Administer slowly via syringe down tube. Depending on the size of the feeding tube, you may need to use the syringe plunger to gently push mixture down the tube. Flush with 30 mL water before and after administration. Do not mix with tube feeding. When administering Banatrol Plus via feeding tube, we recommend a size-14 [place] feeding tube or larger to reduce the risk of clogging the tube. Use a minimum of 120 mL water to mix the product. Slowly stir one packet of Banatrol Plus into 120 mL of water. Mix thoroughly. Infuse via syringe down feeding tube. EER: 7930-2238 kcal (25-28kcal/kg per BMI); 122-153g PRO (1.2-1.5g/kg per wound healing) Monitoring/Evaluations: RD f/u 1-2 days Electronically Signed by: Lyudmila Ellison 09/04/22 11:[address] [address]
[2022-09-04] MEDS: VANCOMYCIN 1,000 MG/200 ML PIGGYBACK 100 MG IV (13:52)
[2022-09-04] MEDS: HYDRALAZINE 10 MG TABLET PO ×2 (13:55→21:39)
--- NOTE | 2022-09-04 14:21 | ST.IPDYTX ---
Visit Care Team Role Provider Type Celina Restrepo MD Primary Care Provider Physician Specialty: Medical Address: [facility] [address], [address] Email: Gabino Sharpe DPM Other Providers Physician Specialty: Wound Care Address: [address] [place], [address] Fax: Email: Ellen Culp DPM Other Providers Non-Staff Specialty: Podiatry Address: [address] [place] [address], [address] Email: DEV Lowry Other Providers Advanced Press Set Up Specialty: Medical Address: [address] [place] [address], [address] Email: [email or web address] Duane Muniz MD Other Providers Physician Specialty: Wound Care Address: [address] [place] [address], [address] Email: [email or web address] Carlos Tomlinson MD Other Providers Non-Staff Specialty: Wound Care Address: [address] [place] [address], [address] Email: [email or web address] [email or web address] Leone DO Emergency Provider Physician Referring Provider Specialty: Emergency Medicine Address: [address] [place] [address], [address] Email: [email or web address] Felix Krishnan MD Admit Provider Physician Attending Provider Specialty: Hospitalist Address: [address] [place] [address], [address] Fax: Email: [email or web address] [email or web address] Treatment HIDE CURER Dysphagia Treatment Start: 09/04/22 14:10 Freq: Status: Active Protocol: Document 09/04/22 14:10 ZS (Rec: 09/04/22 14:21 ZS [id number]) Dysphagia Treatment Session Time Visit Start Time 13:30 Visit Stop Time 14:00 Total Visit Minutes 30 Setting Assessment Location Acute Care Visit Type Note Type Treatment Note Next Note Type Next Note Type Treatment Note Patient Information Identification Type Name,ID Wristband Subjective Observations Pt was semi-reclined in bed with NSG and at bedside. Pt had recently ate noon meal and large portion of meal remained on tray at bedside. NSG was trimming pt's kurtz when HIDE CURER arrived and repositioned pt to right side laying to reduce pressure on his back. Treatment Solids Trialed Puree Administration Type Tea Spoon,Dependent Feeding Oral Strategies Controlled Bite/Sip Size Pharyngeal Strategies Chin Tuck,Small Bites and Sips Treatment Activities Observed pt take medications crushed in applesauce with NSG . Provided education regarding PO intake, diet textures, swallow safety, and what would be involved in weaning off PEG tube. Provided prognosis regarding weaning off PEG tube given pt's current level of functioning. Assessment Assessment of Improvement NSG reported pt was coughing with PO intake this morning and benefitted from chin tuck. reported pt has been taking small bites/sips, but PO trials were not completed due to concerns for swallow safety given positioning and energy level. Pt observed to require verbal and tactile cues to use chin tuck strategy when taking medications crushed in applesauce. No overt signs or symptoms of aspiration observed and pt exhibited no residue following trial. Provided education regarding PO intake and what is involved in weaning off PEG tube, as indicated she would like to see him getting all of his nutrition via PO intake. stated PEG tube is not helping his diarrhea and she would like to work on weaning him off of it. She is aware of the nutritional intake requirements to discontinue PEG tube. Discussed prognosis with removal of PEG tube given current diet level, nutritional intake with PO feeds, and current level of functioning and stated she knew it would take time to complete this process. Reviewed swallow safety methods (i.e., chin tuck, small bites/sips, positioning) with pt and and will follow-up tomorrow for diet tolerance. Diet Recommendations Recommendations Continue Current Diet Liquids Order Thin Medication Recommendations As Tolerated Aspiration Precautions Recommended Precautions Upright at 90 Degrees,Small Bites/Sips,Chin Tuck Treatment Plan Placement Recommendation after Discharge Home with Home Health Appropriate for Continued Therapy Yes Dysphagia Goals The pt will safely tolerate least restrictive diet to meet his nutrition and hydration needs.
--- NOTE | 2022-09-04 15:14 | PM.PN.1 ---
Subjective Subjective Interval history: Patient himself has no new complaints. Diarrhea is improved. Patient states that he is feeling much better. Exam Vital Signs (past 8 hours): - 09/04/22 10:00 09/04/22 14:00 Temperature 97.0 F L 96.9 F L Pulse Rate 66 61 Respiratory Rate 18 18 Blood Pressure 146/76 H 130/75 Pulse Oximetry 96 94 Oxygen Flow Rate 0 0 Oxygen Delivery Method Room Air Oxygen Flow Rate 0 Narrative Exam Narrative: GEN: appears older than stated age, otherwise no acute distress HEENT: moist mucous membranes, PERR, facial drooping right side secondary to the parotid surgery previously, noted conjunctivitis [id number]-left. Has nasal prongs in place but based on vitals patient is O2 satting 96% on no oxygen. NECK: trachea midline, no JVD, some disfiguration of right face/neck area from previous surgery for parotid cancer PULM: Adequate air entry throughout the lung mauro, no wheezes, rhonchi, no crackles CV: irregular, no murmurs ABD: soft, hernia noted, suprapubic catheter and peg tube noted with incision site clean dry and without erythema EXT: warm and well perfused, minimal edema BACK: erythematous back, one ucler stage IV, another stage III, no purulence noted NEURO: awake, alert, oriented, no focal deficits Objective Labs 09/04/22 05:28 09/04/22 05:28 Labs: Laboratory Results - last 24 hr 09/04/22 09/04/22 05:28 05:28 WBC 8.3 RBC 4.20 L Hgb 10.8 L Hct 34.4 L MCV 81.8 MCH 25.7 L MCHC 31.4 RDW 20.3 H Plt Count 391 Neut % (Auto) 79.9 H Lymph % (Auto) 8.6 L [place] % (Auto) 7.0 Eos % (Auto) 3.4 Baso % (Auto) 1.1 Neut # (Auto) 6600 Lymph # (Auto) 700 L [place] # (Auto) 600 Eos # (Auto) 300 Baso # (Auto) 100 RBC Morphology See below Hypochromasia 2+ H Anisocytosis 2+ H Sodium 136 L Potassium 3.5 Chloride 94 L Carbon Dioxide 33 H BUN 20 Creatinine 0.51 L Estimated GFR > 60 BUN/Creatinine Ratio 39.2 H Glucose 192 H Calcium 8.5 Total Bilirubin 1.1 AST 27 ALT 24 Alkaline Phosphatase 105 NT-Pro-B Natriuret Pep 3240 H Total Protein 7.6 Albumin 3.3 L Globulin 4.3 H Albumin/Globulin Ratio 0.8 L Procalcitonin 0.16 PFSH Medical History Atrial fibrillation Bilateral foot-drop 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 Multidrug resistant Pseudomonas UTI secondary to chronic suprapubic catheter -repeat UA still positive, urine culture with GNB >100k -continue zosyn for 7 days total, last dose 09/06 in the evening. Isolate resistant to fluoroquinolones and requires IV therapy. 2. Chronic diarrhea, improved -presumed positive of ? shigella off preliminary reports sent from other hospital -plan for 3 days oral azithromycin 500mg daily - completed -follow up final stool studies with pseudomonas growing, not further evaluated given urine cultures and considered normal bowel zahira. If symptomatic would improve with above UTI therapies. 3. Sacral decubitus ulcer stage IV -with erythema concern for infection initially -swab done in ED, cultures with multiple mixed GNR's and MRSA. Vancomycin was added. -wound care consulted -continue zosyn and vancomycin until 09/06. -follow-up cultures have been negative -given appearance of bone on exam, some concern for underlying osteo, but in setting of pressure sore and repeat negative culture, felt unlikely to be infectious -A1c pending. 4. Coronovirus (not covid) in setting of COPD without exacerbation -currently with a mild cough -ordered PRN nebs, and already on azithromycin for above infection -azithromycin completed 5. Questionable cholecystitis -on admission without abdominal pain, no leukocytosis -continue antibiotics as above -Zosyn medication will essentially cover 6. s/p PEG secondary to history of parotid gland cancer -dietary consulted and will start tube feeds -this was held 2 nights ago due to concern for aspiration.? However chest x-ray this yesterday indicated that the furosemide intravenous helped alleviate pulmonary edema and background pneumonia is being covered with Zosyn and vancomycin 7. History of prostate cancer -s/p suprapubic catheter 8. Atrial fibrillation -continue eliquis as no urgent need for surgery 10. NIMA -not on cpap 11. Conjunctivitis -R>L exudate from eyes with redness -daily abx/steroid eye drops -ongoing 12.Dementia with Agitation.? Initiated Haldol 0.5 mg IV as needed with maximum dose per 24 hours 3 mg.? Yesterday informs that patient has had an allergic reaction to Haldol in the past.? We will put on allergies list and discontinue. 13. Hypokalemia.? Regular dose and Pharmacy replacing. 14. Hyperglycemia - A1c ordered for AM. Follow labs and clinically. Quality VTE Deep Vein Thrombosis/Pulmonary Embolism Present on Admission: No
--- NOTE | 2022-09-04 20:00 | PC.NURSE ---
full day today for patient. head to toe bed bath, as his head and face and hands were very malodorous. patient allowed a kurtz trim as his kurtz was lopsided and mostly on the left side of his face/cheek. jevity TF changed to glucerna 1.5 , still at 90cc/hour goal. tolerating TF and flushes. spoke w/ lead supply worker about banana flakes for loose stools. these were initiated. unsure about where to chart these. but lead supply worker reports they are usually given w/ 120cc warm water and given in tube. usually given TID, w/ 6-8 hours in between doses until stool is formed. two packets given this shift. call to pharmacy about where to chart these as they are a medication. awaiting callback. (by end of shift there was no clear answer to this) dressings changed to coccyx, small allevyn to this area after numerous saline flushes to get the BM out of the wound. A+D ointment applied to rash all over backs of thighs and buttocks, mixed w/ zinc barrier as the zinc seemed to be chunky on his skin. the A-D ointment helped smooth it out and the skin looked more clear by the next full bed change. patient difficult to move in bed, did not like being turned onto his side, although understands the purpose of turning. tolerated about 1 hour each hip for a few hours after breakfast. visited for majority of the morning. provided diabetic teaching for her, showed her how to draw up insulin and given injection for his glucose. patient needy, calling out for staff continuously, 2-3 pa for bed mobility and turning. patient unable to bend his legs and assist w/ mobility, but he does try. calvert is patent, draining clear yellow urine. HOB up at all times. TF turned off for changing his sheets. s/sx of aspiration in the morning. needs VC and assist to tuck his chin during PO intake. when he did this he had no coughing or watery face. dressing to PEG changed. drainage is blackened, odorous. continues w/ vanco and zosyn via PIV. rate slowed for saving the PIV patency. report to NOC.
--- NOTE | 2022-09-04 23:50 | PC.NURSE ---
Patient is oriented to self, birthdate and place only. Very [place] and has no hearing aids. Breath sounds coarse; RA sat 95%. HR irregular w/telemetry reading of afib CVR. BP 142/72. Denies nausea. BT present and abdomen is soft but distended. PEG tube w/tube feeding infusing at 90cc/h and no residual. Incontinent of stool; stools continue to be loose. Suprapubic catheter patent; urine is clear, dark yellow. Is being repositioned q2h as has stage 3 and stage 4 pressure ulcers. Dressings to pressure wounds on sacrum, left buttock and left thigh are CDI. Is paraplegic w/contractures of bilateral LE. 1+ edema in bilateral LE. Denies pain. Remains on contact isolation for MRSA in wounds. Fall risk score is high and bed alarm is activated.
[2022-09-05] VITALS (11 sets, daily range): BP systolic 119–146; BP diastolic 60–76; PULSE 53–67; RESP 18–20; TEMP 35.7–36.4; O2SAT 94–96
[2022-09-05] MEDS: VANCOMYCIN TROUGH 1 REQUEST MISC (00:10)
[2022-09-05] MEDS: VANCOMYCIN 1,000 MG/200 ML PIGGYBACK 200 MG IV (00:16)
[2022-09-05 01:06] LABS: Vancomycin Trough 23.7 ug/mL (10-20)
[2022-09-05] MEDS: HYDRALAZINE 10 MG TABLET PO ×3 (06:26→21:41)
[2022-09-05] MEDS: PIPERACILLIN/TAZO 3.375 GM in SODIUM CHLORIDE 0.9% 100 ML IV ×3 (06:27→23:30)
[2022-09-05 06:45] LABS: Add Manual Diff / Slide Review NO; Basophils Absolute Auto 100 /uL (0-100); Basophils Percent Auto 1.1 % (0-2); Eosinophils Absolute Auto 400 /uL (0-450); Eosinophils Percent Auto 4.4 % (2-4); Hematocrit 29.9 % (41-53); Hemoglobin 9.5 g/dL (13.5-17.5); Lymphocytes Absolute Auto 800 /uL (1100-4500); Lymphocytes Percent Auto 9.6 % (25-40); Mean Corpuscular HGB Conc 31.8 % (30-36); Mean Corpuscular Hemoglobin 25.8 PG (26-34); Mean Corpuscular Volume 80.9 fL (80-100); Monocytes Absolute Auto 700 /uL (0-900); Monocytes Percent Auto 8.6 % (3-14); Neutrophils Absolute Auto 6100 /uL (1500-7000); Neutrophils Percent Auto 76.3 % (50-75); Platelet Count 391 X10^3/uL (150-400); Red Blood Cell Count 3.69 X10^6/uL (4.5-5.9); Red Cell Distribution Width 20.3 % (11.6-14.8)
[2022-09-05 06:49] LABS: Alanine Aminotransferase 20 IU/L (<50); Albumin 3.1 g/dL (3.5-5.0); Albumin Globulin Ratio 0.8 (1.0-2.8); Alkaline Phosphatase 98 U/L (38-126); Aspartate Aminotransferase 20 IU/L (17-59); BUN Creatinine Ratio 43.9 (6-22); Bilirubin Total 0.7 mg/dL (0.2-1.3); Blood Urea Nitrogen 25 mg/dL (9-20); Calcium 8.4 mg/dL (8.4-10.2); Carbon Dioxide 33 mmol/L (22-32); Chloride 92 mmol/L (98-107); Estimated Glomerular Filt Rate > 60 mL/min (>60); Globulin 3.9 g/dL (1.7-4.1); Glucose 171 mg/dL (80-110); HEMOLYSIS < 15 (0-50); Magnesium 1.9 mg/dL (1.6-2.3); Potassium 3.4 mmol/L (3.4-5.1); Sodium 134 mmol/L (137-145)
[2022-09-05 07:01] LABS: Anisocytosis 2+
[2022-09-05] MEDS: FUROSEMIDE 20 MG/2 ML VIAL IV ×2 (08:05→21:37)
[2022-09-05] MEDS: ACETAMINOPHEN 325 MG TABLET 650 MG PO (08:05)
[2022-09-05] MEDS: POTASSIUM CHLORIDE 20 MEQ/15 ML UDC PO (08:05)
[2022-09-05] MEDS: ENALAPRIL 5 MG TABLET PO ×2 (08:06→21:37)
[2022-09-05] MEDS: LOPERAMIDE 2 MG CAPSULE PO ×2 (08:06→13:07)
[2022-09-05] MEDS: APIXABAN 5 MG TABLET 2.5 MG PO ×2 (08:06→21:37)
[2022-09-05] MEDS: INSULIN LISPRO 100 UNIT/ML 3ML VIAL SUBCUT (08:07)
[2022-09-05] MEDS: NEO/POLYMIX B/DEX OPHTH SUSP 1 DROPS EYE-BOTH ×4 (08:07→21:42)
[2022-09-05] MEDS: SODIUM CHLORIDE 0.9% FLUSH 10 ML IV ×2 (08:08→21:37)
[2022-09-05] MEDS: POTASSIUM CHLORIDE 20 MEQ TAB 40 MEQ PO (10:12)
--- NOTE | 2022-09-05 10:53 | DIET.PN1 ---
Dietary Progress Note Assessment: Much improved BG with glucerna formula. Would recommend continued use at home, especially if hgA1c comes back elevated (pending). BG readings down from 190s to 150s today with change in formula. Still having diarrhea per RN last shift. Will increase banana flakes to TID, one pkt q 6-8 hours. Recent labs indicate K 3.4, Mg 1.9, and 8am finger stick glucose 153mg/dl Ht: 195.58 cm Wt: 102.058 kg BMI: 26.6 Last BM: 09/05/22 (09/05/22 06:00) MNA: 9 Mac Score: 13 Diet:mg 1.9, and 08/29/22 Breakfast Heart Healthy Diet Diet Modifications: 08/31/22 Lunch Tube Feeding Diet Diet Modifications: TF Supplement type: Glucerna 1.2 kai TF mode of delivery: Continuous Starting flow rate mL/hr: 20 Flow rate goal mL/hr: 90 Titration Schedule to reach Goal Rate: 20ml/hr q 4 hours Max total daily volume in mL: 3,570 Free fluid: 250 Free Water Frequency: Q4H 09/03/22 Dinner Dysphagia Diet Diet Modifications: Small sips/bites, upright positioning Liquid consistency: Normal/Thin Food texture: Dysphagia Pureed Nutrition Percent Meal Consumed 50% 09/04/22 18:00 Percent Meal Consumed 0% 09/04/22 10:37 Type of Feeding Tube PEG 09/05/22 09:00 Type of Feeding Tube PEG 09/05/22 05:07 Type of Feeding Tube PEG 09/05/22 01:19 Type of Feeding Tube PEG 09/04/22 21:40 Type of Feeding Tube PEG 09/04/22 13:00 Type of Feeding Tube Gastrostomy 09/04/22 09:00 Type of Feeding Tube PEG 09/04/22 05:00 Type of Feeding Tube PEG 09/04/22 01:00 Type of Feeding Tube PEG 09/03/22 21:00 Type of Feeding Tube PEG 09/03/22 17:00 Type of Feeding Tube PEG 09/03/22 13:00 Labs: RBC 3.69 X10^6/uL (4.5-5.9) L 09/05/22 05:51 Hgb 9.5 g/dL (13.5-17.5) L 09/05/22 05:51 Hct 29.9 % (41-53) L 09/05/22 05:51 Creatinine 0.57 mg/dL (0.66-1.25) L 09/05/22 05:51 Hemoglobin A1c Cancelled 09/05/22 05:51 Lactate 1.9 mmol/L (0.7-2.1) 09/01/22 22:39 NT-Pro-B Natriuret Pep 3240 pg/mL (<450) H 09/04/22 05:28 Monitoring/Evaluations: RD f/u 1-2 days Electronically Signed by: Lyudmila Ellison 09/05/22 10:53 Clinical Dietitian [address] [address]
--- NOTE | 2022-09-05 11:56 | P.PN_ITS ---
Subjective Subjective Interval history: Patient himself has no new complaints. Diarrhea is improved. Patient states that he is feeling much better. Exam Vital Signs (past 8 hours): - 09/05/22 05:12 09/05/22 06:26 09/05/22 08:06 Temperature 96.9 F L Pulse Rate 55 L 67 67 Respiratory Rate 18 Blood Pressure 130/75 138/73 138/73 Pulse Oximetry 94 Oxygen Flow Rate 0 09/05/22 08:31 Temperature 97.5 F L Pulse Rate 64 Respiratory Rate 18 Blood Pressure 140/71 Pulse Oximetry 95 Oxygen Flow Rate 0 Oxygen Delivery Method Room Air Oxygen Flow Rate 0 Narrative Exam Narrative: GEN: appears older than stated age, otherwise no acute distress HEENT: moist mucous membranes, PERR, facial drooping right side secondary to the parotid surgery previously NECK: trachea midline, no JVD, some disfiguration of right face/neck area from previous surgery for parotid cancer PULM: Adequate air entry throughout the lung mauro, no wheezes, rhonchi, no crackles CV: irregular, no murmurs ABD: soft, hernia noted, suprapubic catheter and peg tube noted with incision site clean dry and without erythema EXT: warm and well perfused, minimal edema NEURO: awake, alert, oriented, no focal deficits Objective Labs 09/05/22 05:51 09/05/22 05:51 Labs: Laboratory Results - last 24 hr 09/05/22 09/05/22 09/05/22 00:10 05:51 05:51 WBC 8.0 RBC 3.69 L Hgb 9.5 L Hct 29.9 L MCV 80.9 MCH 25.8 L MCHC 31.8 RDW 20.3 H Plt Count 391 Neut % (Auto) 76.3 H Lymph % (Auto) 9.6 L [place] % (Auto) 8.6 Eos % (Auto) 4.4 H Baso % (Auto) 1.1 Neut # (Auto) 6100 Lymph # (Auto) 800 L [place] # (Auto) 700 Eos # (Auto) 400 Baso # (Auto) 100 RBC Morphology Not Reportable Anisocytosis 2+ H Sodium Potassium Chloride Carbon Dioxide BUN Creatinine Estimated GFR BUN/Creatinine Ratio Glucose Hemoglobin A1c Cancelled Calcium Magnesium Total Bilirubin AST ALT Alkaline Phosphatase Total Protein Albumin Globulin Albumin/Globulin Ratio Vancomycin Trough 23.7 H* 04/05/23 05:51 WBC RBC Hgb Hct MCV MCH MCHC RDW Plt Count Neut % (Auto) Lymph % (Auto) [place] % (Auto) Eos % (Auto) Baso % (Auto) Neut # (Auto) Lymph # (Auto) [place] # (Auto) Eos # (Auto) Baso # (Auto) RBC Morphology Anisocytosis Sodium 134 L Potassium 3.4 Chloride 92 L Carbon Dioxide 33 H BUN 25 H Creatinine 0.57 L Estimated GFR > 60 BUN/Creatinine Ratio 43.9 H Glucose 171 H Hemoglobin A1c Calcium 8.4 Magnesium 1.9 Total Bilirubin 0.7 AST 20 ALT 20 Alkaline Phosphatase 98 Total Protein 7.0 Albumin 3.1 L Globulin 3.9 Albumin/Globulin Ratio 0.8 L Vancomycin Trough PFS Medical History Atrial fibrillation Bilateral foot-drop 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 Multidrug resistant Pseudomonas UTI secondary to chronic suprapubic catheter -repeat UA still positive, urine culture with GNB >100k -continue zosyn for 7 days total, last dose 09/06 in the evening. Isolate resistant to fluoroquinolones and requires IV therapy. 2. Chronic diarrhea, improved -presumed positive of ? shigella off preliminary reports sent from other hospital -plan for 3 days oral azithromycin 500mg daily - completed -follow up final stool studies with pseudomonas growing, not shigella. not further evaluated given urine cultures and considered normal bowel zahira. If symptomatic would improve with above UTI therapies. 3. Sacral decubitus ulcer stage IV -with erythema concern for infection initially -swab done in ED, cultures with multiple mixed GNR's and MRSA. Vancomycin was added. -wound care consulted -continue zosyn and vancomycin until 09/06. -follow-up cultures have been negative -given appearance of bone on exam, some concern for underlying osteo, but in setting of pressure sore and repeat negative culture, felt unlikely to be infectious -A1c pending (send out) 4. Coronovirus (not covid) in setting of COPD without exacerbation -currently with a mild cough -ordered PRN nebs, and already on azithromycin for above infection -azithromycin completed 5. Questionable cholecystitis -on admission without abdominal pain, no leukocytosis -continue antibiotics as above -Zosyn medication will essentially cover 6. s/p PEG secondary to history of parotid gland cancer -dietary consulted and will start tube feeds -this was held 2 nights ago due to concern for aspiration.? However chest x-ray this yesterday indicated that the furosemide intravenous helped alleviate p ulmonary edema and background pneumonia is being covered with Zosyn and vancomycin 7. History of prostate cancer -s/p suprapubic catheter 8. Atrial fibrillation -continue eliquis as no urgent need for surgery 10. NIMA -not on cpap 11. Conjunctivitis -R>L exudate from eyes with redness -daily abx/steroid eye drops -ongoing 12.Dementia with Agitation.? Initiated Haldol 0.5 mg IV as needed with maximum dose per 24 hours 3 mg.? Yesterday informs that patient has had an allergic reaction to Haldol in the past.? We will put on allergies list and discontinue. 13. Hypokalemia.? Regular dose and Pharmacy replacing. 14. Hyperglycemia - A1c ordered for AM. Follow labs and clinically. Dispo: Anticipate probable discharge 09/07. Quality VTE Deep Vein Thrombosis/Pulmonary Embolism Present on Admission: No
[2022-09-05] MEDS: VANCOMYCIN 750 MG/150 ML PIGGYBACK 150 MG IV (13:06)
--- NOTE | 2022-09-05 13:27 | ST.IPDYTX ---
Visit Care Team Role Provider Type Celina Restrepo MD Primary Care Provider Physician Specialty: Medical Address: [facility] [address], [place], [address] Email: Gabino Sharpe DPM Other Providers Physician Specialty: Wound Care Address: [address] [place], [address] Fax: Email: Ellen Culp DPM Other Providers Non-Staff Specialty: Podiatry Address: [address] [place] [address], [address] Email: DEV Lowry Other Providers [employer] Waste[employer] Superintendent Specialty: Medical Address: [address] [place] [address], [address] Email: [email or web address] Duane Muniz MD Other Providers Physician Specialty: Wound Care Address: [address] [place] [address], [address] Email: [email or web address] Carlos Tomlinson MD Other Providers Non-Staff Specialty: Wound Care Address: [address] [place] [address], [address] Email: [email or web address] Hany Leone DO Emergency Provider Physician Referring Provider Specialty: Emergency Medicine Address: [address] [place] [address], [address] Email: [email or web address] Krishnan MD Admit Provider Physician Attending Provider Specialty: Hospitalist Address: [address] [place] [address], [address] Fax: Email: [email or web address] TECHNOLOGIST Dysphagia Treatment ELECTRONICS ENGINEERING TECHNOLOGIST Dysphagia Treatment Start: 09/04/22 14:10 Freq: Status: Active Protocol: Document 09/05/22 11:34 ZS (Rec: 09/05/22 11:55 ZS [id number]) Dysphagia Treatment Session Time Visit Start Time 09:10 Visit Stop Time 09:30 Total Visit Minutes 20 Setting Assessment Location Acute Care Visit Type Note Type Treatment Note Patient Information Identification Type Name,ID Wristband Subjective Observations Pt was reclined in bed when ELECTRONICS ENGINEERING TECHNOLOGIST arrived. He was in the process of receiving tube feeding and exhibited productive cough x5 during visit. Pt refused PO trials at this time and was focused on trying to call his and other family members to let them know where he was. He stated nobody knows I'm here. Treatment Solids Trialed Puree Administration Type Tea Spoon,Dependent Feeding Oral Strategies Controlled Bite/Sip Size Pharyngeal Strategies Chin Tuck,Small Bites and Sips Treatment Activities Provided pt and family education regarding swallow safety, impact of comorbidities, and prognosis. Assessment Assessment of Improvement Reminded pt that his was here yesterday and the day before. Pt did not recall this and stated he must have been asleep or really out of it when she was here. He refused PO trials, instead was focused on finding out when his would be arriving. Returned to pt room at 10:15, when pt's was present and discussed pt status. Pt will likely require constant reminders to use strategies with all PO intake. Additionally, pt's wounds on his back present a challenge for positioning and maintaining upright positioning for feeding. Recommend NPO diet and tube feeding at this time to maximize pt swallow safety while there are limitations on swallow safety strategies and positioning. Pt can have water where 1:1 supervision is present and reminders to use strategies are provided. expressed understanding and agreement with plan of care. Discharging from speech therapy at this time as pt is using established feeding method (tube feeding) for primary means of nutrition. May revisit speech therapy once wounds heal and pt is able to resume upright positioning. Diet Recommendations Recommendations Downgrade Diet Order Liquids Order Nothing by Mouth Diet Order NPO Medication Recommendations Not Recommended by Mouth Aspiration Precautions Recommended Precautions Upright at 90 Degrees,Small Bites/Sips,Chin Tuck Treatment Plan Placement Recommendation after Discharge Home with Home Health Appropriate for Continued Therapy No Dysphagia Goals The pt will safely tolerate least restrictive diet to meet his nutrition and hydration needs.
[2022-09-05] MEDS: POTASSIUM CHLORIDE 20 MEQ/15 ML UDC 40 MEQ PO (16:24)
[2022-09-06] VITALS (14 sets, daily range): BP systolic 118–145; BP diastolic 60–71; PULSE 59–66; RESP 18–20; TEMP 35.7–36.1; O2SAT 92–96
[2022-09-06] MEDS: VANCOMYCIN 750 MG/150 ML PIGGYBACK 150 MG IV ×2 (02:04→12:53)
[2022-09-06] MEDS: SODIUM CHLORIDE 0.9% 500 ML 21 ML IV (02:05)
[2022-09-06 04:59] LABS: Labcorp Hemoglobin (Hb) A1c 5.8 % (4.8-5.6)
[2022-09-06 06:26] LABS: Add Manual Diff / Slide Review NO; Basophils Absolute Auto 100 /uL (0-100); Basophils Percent Auto 0.9 % (0-2); Eosinophils Absolute Auto 400 /uL (0-450); Eosinophils Percent Auto 4.1 % (2-4); Hemoglobin 9.8 g/dL (13.5-17.5); Lymphocytes Absolute Auto 800 /uL (1100-4500); Lymphocytes Percent Auto 7.9 % (25-40); Mean Corpuscular HGB Conc 31.7 % (30-36); Mean Corpuscular Hemoglobin 25.5 PG (26-34); Mean Corpuscular Volume 80.3 fL (80-100); Monocytes Absolute Auto 700 /uL (0-900); Monocytes Percent Auto 7.4 % (3-14); Neutrophils Absolute Auto 7600 /uL (1500-7000); Neutrophils Percent Auto 79.7 % (50-75); Platelet Count 387 X10^3/uL (150-400); Red Blood Cell Count 3.86 X10^6/uL (4.5-5.9); Red Cell Distribution Width 19.8 % (11.6-14.8); White Blood Cell Count 9.6 X10^3/uL (4.5-11.0)
[2022-09-06] MEDS: PIPERACILLIN/TAZO 3.375 GM in SODIUM CHLORIDE 0.9% 100 ML IV ×2 (06:30→15:57)
[2022-09-06 06:38] LABS: Alanine Aminotransferase 21 IU/L (<50); Albumin 3.2 g/dL (3.5-5.0); Albumin Globulin Ratio 0.8 (1.0-2.8); Alkaline Phosphatase 102 U/L (38-126); Aspartate Aminotransferase 22 IU/L (17-59); BUN Creatinine Ratio 44.4 (6-22); Bilirubin Total 0.7 mg/dL (0.2-1.3); Blood Urea Nitrogen 28 mg/dL (9-20); Calcium 8.7 mg/dL (8.4-10.2); Carbon Dioxide 36 mmol/L (22-32); Chloride 93 mmol/L (98-107); Estimated Glomerular Filt Rate > 60 mL/min (>60); Globulin 4.2 g/dL (1.7-4.1); Glucose 148 mg/dL (80-110); HEMOLYSIS < 15 (0-50); Magnesium 2.2 mg/dL (1.6-2.3); Potassium 3.7 mmol/L (3.4-5.1); Sodium 137 mmol/L (137-145); Total Protein 7.4 g/dL (6.3-8.2)
[2022-09-06] MEDS: HYDRALAZINE 10 MG TABLET PO ×3 (06:42→22:12)
[2022-09-06] MEDS: LOPERAMIDE 2 MG CAPSULE PO ×4 (09:46→22:48)
[2022-09-06] MEDS: FUROSEMIDE 20 MG/2 ML VIAL IV (09:47)
[2022-09-06] MEDS: POTASSIUM CHLORIDE 20 MEQ/15 ML UDC 40 MEQ PO ×2 (09:48→17:09)
[2022-09-06] MEDS: APIXABAN 5 MG TABLET 2.5 MG PO ×2 (09:48→22:13)
[2022-09-06] MEDS: NEO/POLYMIX B/DEX OPHTH SUSP 1 DROPS EYE-BOTH ×4 (09:48→22:16)
[2022-09-06] MEDS: INSULIN LISPRO 100 UNIT/ML 3ML VIAL SUBCUT ×3 (09:48→22:42)
[2022-09-06] MEDS: SODIUM CHLORIDE 0.9% FLUSH 10 ML IV ×2 (09:49→22:15)
[2022-09-06] MEDS: ENALAPRIL 5 MG TABLET PO ×2 (10:09→22:13)
--- NOTE | 2022-09-06 12:26 | PC.NURSE ---
@1040 Pt had large BM, I and the MEDICAL PHYSICS PROFESSOR cleaned Pt. I also did wound care and dressing change on stage 4 wound on coccyx per woundcare nursing recommendations. I removed old dressing and packing irrigated w/NS. I then repacked wound w/ iodoform and covered w/allevyn dressing.
--- NOTE | 2022-09-06 13:19 | P.PN_ITS ---
Subjective Subjective Interval history: Patient himself has no new complaints. Diarrhea is improved. Patient states that he is feeling much better. New plan for SNF, given antibiotics end this evening will transfer tomorrow. Exam Vital Signs (past 8 hours): - 09/06/22 06:42 09/06/22 08:25 09/06/22 10:09 Temperature 96.8 F L Pulse Rate 60 59 L Respiratory Rate 20 Blood Pressure 118/60 120/71 120/71 Pulse Oximetry 92 Oxygen Flow Rate 0 Oxygen Delivery Method Room Air Oxygen Flow Rate 0 Narrative Exam Narrative: GEN: appears older than stated age, otherwise no acute distress HEENT: moist mucous membranes, PERR, facial drooping right side secondary to the parotid surgery previously NECK: trachea midline, no JVD, some disfiguration of right face/neck area from previous surgery for parotid cancer PULM: Adequate air entry throughout the lung mauro, no wheezes, rhonchi, no crackles CV: irregular, no murmurs ABD: soft, hernia noted, suprapubic catheter and peg tube noted with incision site clean dry and without erythema EXT: warm and well perfused, minimal edema NEURO: awake, alert, oriented, no focal deficits Objective Labs 09/06/22 05:38 09/06/22 05:38 Labs: Laboratory Results - last 24 hr 09/05/22 09/06/22 09/06/22 05:51 05:38 05:38 WBC 9.6 RBC 3.86 L Hgb 9.8 L Hct 31.0 L MCV 80.3 MCH 25.5 L MCHC 31.7 RDW 19.8 H Plt Count 387 Neut % (Auto) 79.7 H Lymph % (Auto) 7.9 L [place] % (Auto) 7.4 Eos % (Auto) 4.1 H Baso % (Auto) 0.9 Neut # (Auto) 7600 H Lymph # (Auto) 800 L [place] # (Auto) 700 Eos # (Auto) 400 Baso # (Auto) 100 Sodium 137 Potassium 3.7 Chloride 93 L Carbon Dioxide 36 H BUN 28 H Creatinine 0.63 L Estimated GFR > 60 BUN/Creatinine Ratio 44.4 H Glucose 148 H Hgb A1c (Ref Lab) 5.8 H Calcium 8.7 Magnesium 2.2 Total Bilirubin 0.7 AST 22 ALT 21 Alkaline Phosphatase 102 Total Protein 7.4 Albumin 3.2 L Globulin 4.2 H Albumin/Globulin Ratio 0.8 L PFSH Medical History Atrial fibrillation Bilateral foot-drop 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 Multidrug resistant Pseudomonas UTI secondary to chronic suprapubic catheter -repeat UA still positive, urine culture with GNB >100k -continue zosyn for 7 days total, last dose 09/06 in the evening. Isolate resistant to fluoroquinolones and requires IV therapy. 2. Chronic diarrhea, improved -presumed positive of ? shigella off preliminary reports sent from other hospital -received 3 days oral azithromycin 500mg daily - completed -follow up final stool studies with pseudomonas growing, not shigella. not further evaluated given urine cultures and considered normal bowel zahira. If symptomatic would improve with above UTI therapies. 3. Sacral decubitus ulcer stage IV -with erythema concern for infection initially -swab done in ED, cultures with multiple mixed GNR's and MRSA. Vancomycin was added. -wound care consulted, recommend daily iodoform packing with allevyn covering. Outpatient follow up with wound care clinic recommended as well. -continue zosyn and vancomycin until 4/6 GNR, cultures finalized with MRSA. -follow-up cultures have been negative -given appearance of bone on exam, some concern for underlying osteo, but in setting of pressure sore and repeat negative culture, felt unlikely to be infectious -A1c 5.8%. Tube feeds changed as discussed below. 4. Coronovirus (not covid) in setting of COPD without exacerbation -currently with a mild cough -ordered PRN nebs, and already on azithromycin for above infection -azithromycin completed 5. Questionable cholecystitis -on admission without abdominal pain, no leukocytosis, but there was possible evidence on abdominal imaging. -continue antibiotics as above -Zosyn medication will essentially cover 6. s/p PEG secondary to history of parotid gland cancer -tube feeds have been changed, he devleoped some hyperglycemia here, improved with glucerna. A1c was 5.8% - tube feeds currently glucerna 1.2, at goal rate of 90 cc per hour. with 250 cc free water flushes q6 hours. - HUMAN RESOURCES ASSOCIATE downgraded patient to NPO after difficulty with swallowing here. Recommend continued speech therapy at SNF. 7. History of prostate cancer -s/p suprapubic catheter 8. Atrial fibrillation -continue eliquis 10. NIMA -not on cpap 11. Conjunctivitis, improved -R>L exudate from eyes with redness -daily abx/steroid eye drops will discontinue at discharge. 12.Dementia with Agitation.? Initiated Haldol 0.5 mg IV as needed with maximum dose per 24 hours 3 mg.? Yesterday informs that patient has had an allergic reaction to Haldol in the past.? We will put on allergies list and discontinue. Have had no issues with agitation over the past few days. 13. Hypokalemia.? Regular dose and Pharmacy replacing. 14. Hyperglycemia, pre-diabetes - A1c 5.8%, likely to improve with change to glucerna as discussed above. Follow labs and clinically. Dispo:Discharge to SNF planned for tomorrow 09/07. Quality VTE Deep Vein Thrombosis/Pulmonary Embolism Present on Admission: No
[2022-09-06] MEDS: NYSTATIN POWDER 15GM 1 APPLIC TOP (13:30)
--- NOTE | 2022-09-06 15:30 | CM.DPNOTE ---
DCP Note Spouse Ashley requested SNF referral to [facility] yesterday which was emailed by CLAUDIA Giordano 09.05.22 Discussed goals of care briefly with patient's spouse yesterday, outside of patient's room. Spouse very upset today with this ACCOUNT EXECUTIVE TRAINEE, says patient wants to live as long as possible. This ACCOUNT EXECUTIVE TRAINEE apologetic for discussing goals of care out in the open as spouse put it. Jillian at [facility] accepts patient for admission tomorrow 09.07.22. Spouse appreciative and plans to meet patient at [facility] tomorrow. S needed for patient's transport. Jillian at [facility] will discuss prison care plans with spouse once patient is admitted. Jillian anticipates spouse will choose to have patient return home after rehab stay Additional clinical emailed to Jillian today per her request which included information on tube feeding and wound care. No wound vac at this time. Plan: Discharge expected tomorrow 09.07.22 to [facility] for management of tube feeds, wound care and PT/OT if patient can tolerate. Transport via BLS needed, likely [facility] transport- will coordinate this in the AM Following closely for coordination of plan JW
[2022-09-07 03:10] VITALS: BP 130/68; PULSE 66
[2022-09-07 06:30] VITALS: BP 133/83; PULSE 56; RESP 18; TEMP 36.1; O2SAT 97
[2022-09-07 07:11] VITALS: BP 133/83; PULSE 56
[2022-09-07] MEDS: HYDRALAZINE 10 MG TABLET PO (07:11)
[2022-09-07 08:33] VITALS: BP 141/63; PULSE 58; RESP 20; TEMP 36.3; O2SAT 97
[2022-09-07 10:26] VITALS: BP 141/63
[2022-09-07] MEDS: ENALAPRIL 5 MG TABLET PO (10:26)
[2022-09-07] MEDS: LOPERAMIDE 2 MG CAPSULE PO (10:26)
[2022-09-07] MEDS: POTASSIUM CHLORIDE 20 MEQ/15 ML UDC 40 MEQ PO (10:26)
[2022-09-07] MEDS: APIXABAN 5 MG TABLET 2.5 MG PO (10:27)
[2022-09-07] MEDS: NEO/POLYMIX B/DEX OPHTH SUSP 1 DROPS EYE-BOTH ×2 (10:27→12:40)
[2022-09-07] MEDS: SODIUM CHLORIDE 0.9% FLUSH 10 ML IV (10:27)
--- NOTE | 2022-09-07 10:33 | CM.DPC ---
DCP Cont: Working on getting patient to [facility] today. Called [facility] for transport, indicated, [facility]'t work [facility], but patient has Medicaid. [facility] is not available for any transport. Filling out BLS form, for patient is bed bound, they can bill Medicaid, [facility] is not able to transport. Left BLS form for Dr. Douglas to sign. She is working on meds. Updated white board at main nurses station, set up time of orange picking supervisor for 1400. As soon as meds are signed, will fax over to [facility], completed PASSR. P: Patient is discharging to [facility] today with orange picking supervisor time of 1400. SUSI Pyle lead, has spoken to , had concerns about some issues regarding discharge planning. Ilene Melendez, RN/Middleware Architect
[2022-09-07] MEDS: INSULIN LISPRO 100 UNIT/ML 3ML VIAL SUBCUT (12:40)
--- NOTE | 2022-09-07 15:47 | CM.DPNOTE ---
CM Spoke with patients today after receiving two very angry voice messages this AM. Patients was very upset about the goals of care conversation she had with EMILY rasmussen the day before yesterday. Patients was still very upset about discussing end of life care about her of 50 years. Patient stated that she knows her is older but still deserves to live. CM explained that goals of care conversations are a normal part of case managements job and that no one was forcing the issue of hospice or termination of treatment. Patients stated understanding and stated that she was very emotional and apologized many times for her being so upset. Patient wanted to know what the Discharge plan was. CM explained that the plan was for her to DC to [facility] this afternoon at 2pm transported by S. Patients agreed with this plan and asked if patient would be receiving wound care there. CM explained that wound care plan and orders were included in the DC instructions from the provider. Patients stated understanding and was okay with this plan and was planning on meeting her at the SNF at around 3PM. Patients stated she was sorry for the very angry voice messages. Lashanda Mena RNpractical nurse
--- NOTE | 2022-09-10 16:58 | PM.DS.1 ---
History of Present Illness History of Present Illness Chief complaint: Ulcers Narrative: Per H&P: Mr. 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 He apparently has had chronic diarrhea for months. He presented to [facility] recently with fatigue in Jul 2022. At that time was found to have pseudomonas UTI. He also had gallbladder wall changes, but thought not to have acute cholecystitis. He has apparently had ongoing symptoms. He had stool culture recently sent, that is preliminary but possibly concerning for Shigella. He has had a repeat UA done recently that again grew back pseudomonas UTI which as resistant to multiple drugs but sensitive to zosyn and imipenem. Apparently he was brought in after recommendation from home health for worsening sacral ulcers. He also has a cough, no shortness of breath, and is active vaping. He denies any abdominal pain, nausea, vomiting. In the ED workupw as done, vitals notable for blood pressure 150/s80s, heart rate in the 60s, sats in the high 90s on room air. Labs notable for WBC 7.5, hgb 10.2. INR 1.7. Na 134, creatinine 0.58. BNP 3000. Lipase 1175. Procal 0.33. UA with positive nitrates, 3+ leuk esterase, 5-10 wbcs, moderate bacteria. Respiratory panel with coronavirus nl63 positive. Chest xray with no acute process. CT abdomen pelvis with patchy opacity in left lung base, and gallbladder with pericholecystic fluid versus wall thickening. Abdominal ultrasound with cholelithiasis, pericholecystic fluid. 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 Surgery was consulted and said patient had no current indication for surgery. He was ordered for IV antibiotics and admitted for further treatment. Discharge Providers Provider Date of admission: 08/30/22 14:06 Discharge Date: 09/07/22 Primary care physician: Celina Restrepo MD Consults: 08/30/22 00:34 Consult to Dietitian, Adult Routine Comment: Reason For Exam: peg 08/30/22 08:22 Consult to Wound Care Routine Comment: Consulting Provider: [facility] 08/31/22 10:53 Consult to Occupational Therapy Evaluate & Treat Comment: Physician Instructions: Evaluate and treat Consult to Physical Therapy Evaluate & Treat Comment: Physician Instructions: Evaluate and Treat 09/01/22 20:29 Consult to Speech Therapy Evaluate & Treat Comment: aspiration? Physician Instructions: Evaluate and treat 09/02/22 12:46 Consult to Speech Therapy Evaluate & Treat Comment: what is appropriate for the patient to swallow Physician Instructions: Evaluate and treat 09/04/22 11:32 Consult to Inpatient Wound Care Nurse Routine Comment: Reason for consultation: decubitus ulcer Discharge provider: Jade Ascencio MD Summary Hospital Course Discharge Diagnosis: 1. Multidrug resistant Pseudomonas UTI secondary to chronic suprapubic catheter 2. Chronic diarrhea, improved 3. Sacral decubitus ulcer stage IV 4. Coronovirus (not covid) in setting of COPD without exacerbation 5. Questionable cholecystitis, no clinical symptoms, unable to completely rule out d/t imaging findings 6. s/p PEG secondary to history of parotid gland cancer 7. History of prostate cancer 8. Atrial fibrillation on chronic Eliquis anticoagulation 9. NIMA, untreated 10. Conjunctivitis, improved 11.Dementia with Agitation.? 12. Hypokalemia, improved w/repletion 13. Prediabetes 14. Volume overload w/pulmonary edema, treated and resolved Hospital Course: Pls see H&P for full details. Briefly, following admission, he was treated for a multi-drug resistant UTI in the setting of chronic suprapubic catheterization (last changed 2 weeks ago). He also notably has a Stage 4 decubitus wound which home health has been following. He was placed on IV abx. He has had chronic diarrhea as well. THere was some concern that he had Shigella as a source for his diarrhea, but that ultimately was negative. Diarrhea improved during his hospital stay after tube feed formula was changed. Hospital course was complicated by worsening dyspnea and volume overload which improved and resolved prior to discharge. Patient completed his full course of antibiotics w/good improvement. He is Discharging to SNF for ongoing care and therapies. He is discharged in stable condition. 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 catheter Contracture of joint of both feet COPD (chronic obstructive pulmonary disease) Dementia Hypertension NIMA (obstructive sleep apnea) PEG tube malfunction Prostate cancer Pseudomonas urinary tract infection Smoker Suprapubic catheter Surgical History H/O prostatectomy S/P percutaneous endoscopic gastrostomy (PEG) tube placement Social History household members: spouse Smoking Status: Current some day smoker alcohol intake: former Discharge Plan Discharge Plan Patient Disposition: SNF Transfer to: [facility] Other facility: [facility] Under care of provider: Facility MD Discharge orders & Medications Prescriptions: New hydralazine 10 mg Tablet 10 mg feeding tube Q8HR 30 Days Qty: 30 0RF loperamide 2 mg Capsule 2 mg feeding tube Q8H PRN (Reason: Diarrhea) 30 Days Qty: 60 0RF Continued potassium chloride [Klor-Con] 20 mEq packet 20 meq feeding tube DAILY Patient Comments: DISSOLVE 2 PACKETS IN WATER ONCE DAILY. GIVE VIA FEEDING TUBE WITH 6 OZ OF WATER. Changed enalapril maleate 5 mg tablet 5 mg feeding tube BID Qty: 60 0RF Eliquis 2.5 mg tablet 2.5 mg feeding tube BID Qty: 60 0RF Patient Comments: TAKE 1 TABLET BY MOUTH TWICE DAILY Follow up/Referrals: Celina Restrepo MD [Primary Care Provider] - Discharge Health Status Multidrug resistant organism: MRSA Precautions: Contact Diet/Activity/Treatments Diet: Nothing by Mouth and Tube Feeding Diet comment: Glucerna 1.5 Activity: per PT/OT Catheter: 2-way Hart Oxygen: N/A Skin/Wound/Dressing Care Dressing: stage IV - iodoform packing daily or if soiled, covered with allevyn. Special Rehabilitation Services Rehab type: Physical therapy, Occupational therapy and Speech therapy Visit Report/Discharge Packet Stand Alone Forms: Patient Portal/API Discharge Data Primary Care Provider: Celina Restrepo Discharges patient from system. Discharge Date/Time: 09/07/22 14:10 Quality VTE Deep Vein Thrombosis/Pulmonary Embolism Present on Admission: No
== END 2022-09-07 14:10 | disposition home or self-care (01) | DRG 698 ==
LOC: ED 18:53 → AC 08-30 09:43
PROVIDERS: Emergency Medicine; Internal Medicine; Neuromusculoskeletal Medicine, Sports Medicine; Student in an Organized Health Care Education/Training Program; Admitting Provider Internal Medicine; Emergency Provider Emergency Medicine; PCP Internal Medicine; Referring Provider Emergency Medicine; Visit Provider Internal Medicine
DX: T83.518A Infection and inflammatory reaction due to other urinary catheter, initial encounter (principal); L89.154 Pressure ulcer of sacral region, stage 4; N39.0 Urinary tract infection, site not specified; F03.911 Unspecified dementia, unspecified severity, with agitation; Z16.30 Resistance to unspecified antimicrobial drugs; B96.5 Pseudomonas (aeruginosa) (mallei) (pseudomallei) as the cause of diseases classified elsewhere; J44.9 Chronic obstructive pulmonary disease, unspecified; I48.91 Unspecified atrial fibrillation; B34.2 Coronavirus infection, unspecified; H10.9 Unspecified conjunctivitis; E87.6 Hypokalemia; K52.9 Noninfective gastroenteritis and colitis, unspecified; K81.9 Cholecystitis, unspecified; R73.03 Prediabetes; B95.62 Methicillin resistant Staphylococcus aureus infection as the cause of diseases classified elsewhere; F17.200 Nicotine dependence, unspecified, uncomplicated; Z85.46 Personal history of malignant neoplasm of prostate; Z20.822 Contact with and (suspected) exposure to COVID-19; Z85.858 Personal history of malignant neoplasm of other endocrine glands; Z79.01 Long term (current) use of anticoagulants; Z93.1 Gastrostomy status
CPT/HCPCS: 36415; 36600; 71045; 74022; 74177; 76705; 80048; 80053; 80202; 81001; 82805; 82962; 83036; 83605; 83690; 83735; 83880; 84100; 84145; 84484; 85025; 85610; 85730; 87040; 87045; 87070; 87075; 87077; 87086; 87147; 87186; 87205; 87633; 87899; 92526; 92610; 93005; 94640; 94760; 96365; 96367; 97163; 99284; 99285; G0378; J1630; J1815; J1940; J2405; J2543; J7613